=== PATIENT | female | born 1985 | race Two or more races ===

== ENCOUNTER 2020-12-07 22:27 | Emergency (ER) | payer MEDICARE, MEDICAID ==
[~2020-12-07] VITALS: Ht 170.2 cm; Wt 72.6 kg
[~2020-12-07 22:27] MED LIST: CABE0.5T PO; CARI250T PO; IBUP600T27 PO; NITR-39 PO
[2020-12-07 23:55] LABS: Basophils # (auto) 0.1 10 ^3/uL (0-0.2); Basophils % (auto) 2.3 % (0.0-2.0); Eosinophils # (auto) 0.2 10 ^3/uL (0-0.8); Hematocrit 33.5 % (36.0-46.0); Lymphocytes # (auto) 2.7 10 ^3/uL (0.4-5.4); Lymphocytes % (auto) 49.2 % (10.0-50.0); Mean Corpuscular Hgb Conc. 32.8 g/dL (32.0-36.0); Mean Corpuscular Volume 91.5 fL (80.0-100.0); Monocytes # (auto) 0.4 10 ^3/uL (0-1.3); Monocytes % (auto) 7.7 % (0.0-12.0); Neutrophils # (auto) 2.1 10 ^3/uL (1.6-8.6); Neutrophils % (auto) 37.8 % (37.0-80.0); Nucleated Red Blood Cells % 0.1 %; Platelet Count (auto) 189 10^3/uL (140-450); Red Blood Cells 3.66 10^6/uL (4.0-5.20); Red Cell Distribution Width 14.3 % (11.8-14.3); White Blood Cell 5.5 10^3/uL (4.4-10.8)
[2020-12-08 00:11] LABS: Acetaminophen 7.8 ug/mL (10-30); Salicylate < 1.7 mg/dL (2.8-20.0)
[2020-12-08 00:13] LABS: Albumin 3.6 g/dL (3.4-5.0); Calcium 7.7 mg/dL (8.5-10.1); Potassium 4.1 mmol/L (3.5-5.1)
[2020-12-08 00:16] LABS: BUN/Creatinine Ratio 28.6; Bilirubin, Total 0.1 mg/dL (0.2-1.0); Total Protein 6.9 g/dL (6.4-8.2)
[2020-12-08 00:48] LABS: Alcohol, Urine < 3.0 mg/dL (0-10); Amphetamine Screen, Urine NEGATIVE (NEGATIVE); Barbiturate Scree,Urine NEGATIVE (NEGATIVE); Benzodiazephine Screen, Urine POSITIVE (NEGATIVE); Cannabinoid Screen, Urine NEGATIVE (NEGATIVE); Cocaine Screen, Urine NEGATIVE (NEGATIVE); Opiate Scree,Urine NEGATIVE (NEGATIVE); Phencyclidine Screen, Urine NEGATIVE (NEGATIVE)
[2020-12-08 00:51] LABS: Urine Bacteria FEW /hpf (None Seen); Urine Blood Negative /uL (Negative); Urine Hyaline Cast FEW /lpf (0 - 2); Urine Mucus FEW (None Seen); Urine Specific Gravity 1.031 (1.001-1.035); Urine WBC 23 /hpf (0 - 5)
[2020-12-08 01:00] VITALS: BP 122/71
== END 2020-12-08 01:53 | disposition home or self-care (01) ==
LOC: EDBD 22:27 → ER 22:30
DX: F19.10 Other psychoactive substance abuse, uncomplicated (principal); F11.10 Opioid abuse, uncomplicated; T65.91XA Toxic effect of unspecified substance, accidental (unintentional), initial encounter; Y92.89 Other specified places as the place of occurrence of the external cause
CPT/HCPCS: 36415; 80053; 80307; 80329; 81001; 85025; 93005

== ENCOUNTER 2024-08-04 03:01 | Inpatient (IN) | payer MEDICARE, MEDICAID ==
[~2024-08-04] VITALS: Ht 165.1 cm; Wt 69.7 kg
[~2024-08-04 03:01] MED LIST changes: +IBUP-1454 PO; -IBUP600T27 PO
[2024-08-04] MEDS: GABAPENTIN 400 MG CAP PO ONE (03:30)
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
[2024-08-04 04:16] LABS: Basophils # (auto) 0.1 10 ^3/uL (0-0.2); Basophils % (auto) 0.9 % (0.0-2.0); Eosinophils # (auto) 0.5 10 ^3/uL (0-0.8); Eosinophils % (auto) 6.6 % (0.0-7.0); Hematocrit 39.7 % (36.0-46.0); Hemoglobin 12.2 g/dL (12.2-16.2); Lymphocytes # (auto) 1.8 10 ^3/uL (0.4-5.4); Lymphocytes % (auto) 22.3 % (10.0-50.0); Mean Corpuscular Hemoglobin 30.6 pg (28.0-32.0); Mean Corpuscular Hgb Conc. 30.7 g/dL (32.0-36.0); Mean Corpuscular Volume 99.6 fL (80.0-100.0); Monocytes # (auto) 0.3 10 ^3/uL (0-1.3); Monocytes % (auto) 3.2 % (0.0-12.0); Neutrophils # (auto) 5.3 10 ^3/uL (1.6-8.6); Nucleated Red Blood Cells % 0.1 %; Platelet Count (auto) 271 10^3/uL (140-450); Red Blood Cells 3.99 10^6/uL (4.0-5.20); Red Cell Distribution Width 18.9 % (11.8-14.3)
[2024-08-04 04:42] LABS: Anion Gap 11 (5-15); Potassium 4.3 mmol/L (3.5-5.1); Sodium 143 mmol/L (136-145)
[2024-08-04 04:43] LABS: Calcium 10.2 mg/dL (8.7-10.4)
[2024-08-04 04:48] LABS: BUN/Creatinine Ratio 21.5 (10.0-20.0); Blood Urea Nitrogen 14 mg/dL (9-23)
[2024-08-04 04:53] LABS: Carbon Dioxide 20 mmol/L (20-31); Chloride 112 mmol/L (98-107); Glucose 107 mg/dL (74-106)
--- NOTE | 2024-08-04 05:05 | DVH ---
INDICATION: lower back pain COMPARISON: None TECHNIQUE: Frontal and lateral views of the lumbar spine were obtained. FINDINGS: There is posterior fusion from L2-L4 with bilateral rods and bilateral screws at L2 and L4. There is L3 vertebral augmentation. There is posterior fusion at L5-S1 with right-sided marcus and transpedicula r screws The lumbar vertebral alignment is normal. The intervertebral disc spaces are well-maintained. No significant facet arthropathy is noted. No acute fracture, vertebral compression deformity or aggressive osseous lesions. The paravertebral soft tissues are grossly unremarkable. IMPRESSION: 1. No acute fracture. 2. Multilevel postsurgical changes. No abnormal alignment. L3 vertebral augmentation.
[2024-08-04] MEDS: SODIUM CHLORIDE 0.9% 1,000 ML IV ONE (05:38)
[2024-08-04] MEDS: ACETAMINOPHEN 325 MG TAB PO ONE (05:38)
[2024-08-04] MEDS: diazePAM 2 MG TAB PO ONE (05:38)
[2024-08-04] MEDS: KETOROLAC TROMETH 30 MG/ML 1ML VIAL IV ONE (05:40)
[2024-08-04 06:19] VITALS: RESP 12; O2SAT 97
[2024-08-04] MEDS ORDERED: DOCUSATE SOD 100 MG CAP PO PRN (09:00)
[2024-08-04] MEDS ORDERED: ACETAMINOPHEN 325 MG TAB PO PRN (09:00)
[2024-08-04 09:51] VITALS: BP 109/63; PULSE 86; RESP 20; TEMP 97.7; O2SAT 100
--- NOTE | 2024-08-04 09:52 | DVHHP2 ---
History of Present Illness Reason for Visit: Lumbar radiculopathy History of Present Illness The patient is a 39-year-old female with multiple past history including UTIs, anxiety, and pituitary tumor presented to [facility] ED with complaint of lower back pain. Patient reports symptoms progressively get worse with radiating buttock pain, bilateral leg pain, rating pain 10/10 numeric scale, sharp in nature, getting worse that prompted this visit. Patient was seen and evaluated in the ED, laboratory data shows WBC 8.0, platelets 271, sodium 143, potassium 4.3, BUN 14, creatinine 0.65, GFR 114, glucose 107, calcium 10.2. Lumbar spine x-ray revealing multilevel postsurgical changes, no acute fracture, no abdominal alignment, L3 vertebral augmentation. Please see medication orders section in the computer. On my assessment, patient denied chest pain, no headache, no dizziness, no diaphoresis, no numbness, no tingling, no shortness of breath, no nausea, no vomiting, no fever, no chills. No other modifying factor or other associated signs and symptoms noted. The patient was admitted to the hospital for further evaluation and medical management. 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 Past Social History The patient lives at home, denies smoking, alcohol or illicit drugs abuse. Review of Systems Constitutional: No: Fever, Chills, Sweats, Weakness, Malaise, Other Eyes: No: Pain, Vision change, Conjunctivae inflammation, Eyelid inflammation, Other, Redness ENT: No: Ear pain, Ear discharge, Nose pain, Nose discharge, Nose congestion, Mouth pain, Mouth swelling, Throat pain, Throat swelling, Other Respiratory: No: Cough, Dry, Shortness of breath, SOB with excertion, Wheezing, Hemoptysis, Pleuritic Pain, Sputum, Wheezing, Other Cardiovascular: No: Chest Pain, Palpitations, Orthopnea, Paroxysmal Noc. Dyspnea, Edema, Lt Headedness, Other Gastrointestinal: No: Nausea, Vomiting, Abdominal Pain, Diarrhea, Constipation, Melena, Hematochezia, Other Genitourinary: No Dysuria, No Frequency, No Incontinence, No Hematuria, No Retention, No Other Musculoskeletal: other (Buttocks and bilateral lower leg pain.), back pain (Lower); No: neck pain, shoulder pain, arm pain, hand pain, leg pain, foot pain Skin: No: Rash, Lesions, Jaundice, Bruising, Other Neurological: No: Weakness, Numbness, Incoordination, Change in speech, Confusion, Seizures, Other Allergies: Coded Allergies: Gabapentin (Verified Allergy, Unknown, 11/03/14) Lorazepam (Verified Allergy, Unknown, STS IT MAKES HER CRAZY, 08/20/14) Morphine (Verified Allergy, Unknown, HIVES, 08/20/14) Topiramate (Verified Allergy, Unknown, BECOMES ALTERED AND SWOLLEN, 08/20/14) Medications Current Medications Medications Dose Ordered Sig/Koby Route Start Time Stop Time Status Last Admin Dose Admin Sodium Chloride 10 ml Q8HR IV 08/04/24 14:00 Acetaminophen/ Hydrocodone Bitart 1 tab Q4HP PRN PO 08/04/24 09:00 Ondansetron HCl 4 mg Q4HP PRN IV 08/04/24 09:00 Docusate Sodium 100 mg BIDPRN PRN PO 08/04/24 09:00 Acetaminophen 650 mg Q6HP PRN PO 08/04/24 09:00 Exam Vital Signs Vital Signs Date Time Temp Pulse Resp B/P (MAP) Pulse Ox O2 Delivery O2 Flow Rate FiO2 08/04/24 08:00 97.6 67 16 104/66 (79) 100 97.6 08/04/24 06:19 Room Air* 0 21 General Appearance: Alert, Oriented X3, Cooperative, No acute distress HEENT: Atraumatic, PERRLA, EOMI, Mucous membr. moist/pink Respiratory: Clear to auscultation, Normal air movement Cardiovascular: Regular rate, Normal S1, Normal S2, No murmurs Abdominal: Normal bowel sounds, Soft, No tenderness, No hepatospenomegaly, No masses Extremities: No clubbing, No cyanosis, No edema, Normal pulses, No tenderness/swelling Skin: No rashes, No breakdown, No significant lesion Neuro: Normal speech, Normal tone, Sensation intact, Cranial nerves 3-12 NL, Reflexes 2+, Other (Bilateral leg weakness) Psych/Mental Status: Mental status NL, Mood NL Labs/Xrays Labs Test 08/04/24 04:00 Range/Units White Blood Count 8.0 4.4-10.8 10^3/uL Red Blood Count 3.99 L 4.0-5.20 10^6/uL Hemoglobin 12.2 12.2-16.2 g/dL Hematocrit 39.7 36.0-46.0 % Mean Corpuscular Volume 99.6 80.0-100.0 fL Mean Corpuscular Hemoglobin 30.6 28.0-32.0 pg Mean Corpuscular Hemoglobin Concent 30.7 L 32.0-36.0 g/dL Red Cell Distribution Width 18.9 H 11.8-14.3 % Platelet Count 271 140-450 10^3/uL Mean Platelet Volume 7.4 6.9-10.8 fL Neutrophils (%) (Auto) 67.0 37.0-80.0 % Lymphocytes (%) (Auto) 22.3 10.0-50.0 % Monocytes (%) (Auto) 3.2 0.0-12.0 % Eosinophils (%) (Auto) 6.6 0.0-7.0 % Basophils (%) (Auto) 0.9 0.0-2.0 % Neutrophils # (Auto) 5.3 1.6-8.6 10 ^3/uL Lymphocytes # (Auto) 1.8 0.4-5.4 10 ^3/uL Monocytes # (Auto) 0.3 0-1.3 10 ^3/uL Eosinophils # (Auto) 0.5 0-0.8 10 ^3/uL Basophils # (Auto) 0.1 0-0.2 10 ^3/uL Nucleated Red Blood Cells 0.1 % Sodium Level 143 136-145 mmol/L Potassium Level 4.3 3.5-5.1 mmol/L Chloride Level 112 H 98-107 mmol/L Carbon Dioxide Level 20 20-31 mmol/L Anion Gap 11 5-15 Blood Urea Nitrogen 14 9-23 mg/dL Creatinine 0.65 0.550-1.02 mg/dL Glomerular Filtration Rate Calc 114 >90 mL/min BUN/Creatinine Ratio 21.5 H 10.0-20.0 Serum Glucose 107 H 74-106 mg/dL Calcium Level 10.2 8.7-10.4 mg/dL PATIENT: LAURA PIZARRO ACCT: [id number] UNIT: [id number] : 1985 LOC: ER ROOM / BED: / AGE / SEX: 39 / F ADM STATUS: REG ER SERVICE [id number] ORDERING PHYSICIAN: GIRMA ANGUIANO MD PROCEDURE(s): LUMB2 - LUMBAR SPINE 3 VIEW REASON: lower back pain ORDER NUMBER(s): [id number], ACCESSION NUMBER(s): [id number] INDICATION: lower back pain COMPARISON: None TECHNIQUE: Frontal and lateral views of the lumbar spine were obtained. FINDINGS: There is posterior fusion from L2-L4 with bilateral rods and bilateral screws at L2 and L4. There is L3 vertebral augmentation. There is posterior fusion at L5- S1 with right-sided marcus and transpedicular screws The lumbar vertebral alignment is normal. The intervertebral disc spaces are well-maintained. No significant facet arthropathy is noted. No acute fracture, vertebral compression deformity or aggressive osseous lesions. The paravertebral soft tissues are grossly unremarkable. IMPRESSION: 1. No acute fracture. 2. Multilevel postsurgical changes. No abnormal alignment. L3 vertebral augmentation. Assessment/Plan Assessment/Plan Lumbar radiculopathy Bilateral leg weakness Plan 1. Admit to med surge unit 2. Breathing treatment 3. Pain control management 4. Management of fluids and electrolytes 5. Consultation for hospitalist 6. Diagnostic tests lumbar spine x-ray 7. DVT prophylaxis-on SCDs 8. Repeat labs CBC, CMP in a.m. 9. Continue with current medical management 10. Treatment plan discussed with patient and RN. Patient verbalized understanding. Plan discussed with: Patient, Other (RN) My Orders Orders - RUBEN CROSS DNP Procedure Category Date Status Time Allergies RICKY 08/04/24 In Process 08:47 Code Status CODE 08/04/24 Transmitted 08:47 Sodium Chloride Lock PHA 08/04/24 In Process (Saline Lock Ns) 14:00 Oxygen Per Hour RT 08/04/24 Transmitted 08:47 Hydrocodone-Acet PHA 08/04/24 In Process 5/325mg Tab ([place] 09:00 Ondansetron Hcl PHA 08/04/24 In Process (Zofran) 09:00 Docusate Sodium PHA 08/04/24 In Process Capsule (Colace 09:00 Complete Blood Count LAB 08/05/24 Verified 04:00 Comprehensive LAB 08/05/24 Verified Metabolic Panel 04:00 Cardiac DIET 08/04/24 Transmitted Diet-2gna,Lofat,Lochol Breakfast Condition: Serious RICKY 08/04/24 In Process 08:47 Acetaminophen Tablet [facility] 08/04/24 In Process (Tylenol Tablet) 09:00 Bedrest With Bathroom RICKY 08/04/24 In Process Privileg 08:47 Sequential [facility] 08/04/24 In Process Compression Device Admit ADMIT 08/04/24 Transmitted 09:51 Nitroglycerin [facility] 08/04/24 Transmitted Sublingual (Ntrostat 10:00 Morphine Sulfate [facility] 08/04/24 Transmitted Injection 10:00 Notify Md Of Changes [facility] 08/04/24 Transmitted From Base 09:51 Emergency Dysrhythmia [facility] 08/04/24 Transmitted Protocol 09:51 Oxygen By Nasal RT 08/04/24 Transmitted Cannula 09:51 Problem List: (1) Lumbar radiculopathy (2) Bilateral leg weakness Date of Service: Aug 04, 2024 Billing Provider: RUBEN CROSS DNP Common Visit Codes: [id number] INP/OBS CARE (HIGH) RUBEN CROSS DNP Aug 04, 2024 09:52
[2024-08-04] MEDS ORDERED: NITROGLYCERIN 0.4 MG SL TAB SL PRN (10:00)
[2024-08-04] MEDS ORDERED: MORPHINE SULFATE INJ 2 MG/ml SYRG IV PRN (10:00)
[2024-08-04 10:15] VITALS: PULSE 78; RESP 18; O2SAT 100
[2024-08-04] MEDS ORDERED: PANT1INJ3 PO (10:44)
[2024-08-04] MEDS ORDERED: CEL100T PO (10:46)
[2024-08-04] MEDS ORDERED: GABA-339 PO (10:48)
[2024-08-04] MEDS: HYDROcodone-ACET 5/325MG TAB PO PRN (11:13)
[2024-08-04 11:27] VITALS: BP 109/63; PULSE 73; PULSE 86; RESP 18; RESP 20; TEMP 97.7; O2SAT 100; O2SAT 97
[2024-08-04] MEDS: SODIUM CHLOR 0.9% PF (SALINE LOCK) 10ML VIAL/SYR IV SCH (13:33)
[2024-08-04] MEDS: HYDROmorphone HCL 2 MG/ML VL/or syr IV PRN (14:52)
[2024-08-04] MEDS: diphenhdrAMINE HCL 50 MG/1 ML VL IV PRN (16:17)
[2024-08-04 16:30] VITALS: BP 104/60; PULSE 70; RESP 18; TEMP 97.5; O2SAT 98
[2024-08-04] MEDS: ONDANSETRON HCL 4 MG/2 ML VIAL IV PRN (23:54)
[2024-08-05] VITALS (8 sets, daily range): BP systolic 101–144; BP diastolic 59–79; PULSE 63–88; RESP 18–20; TEMP 97.4–98.4; O2SAT 94–100
[2024-08-05] MEDS ORDERED: ACET-1079 PO (01:58)
[2024-08-05] MEDS ORDERED: BACL20TA PO (01:58)
[2024-08-05] MEDS ORDERED: TIZA4TAB9 PO (01:58)
[2024-08-05] MEDS ORDERED: GABA-1250 PO (01:58)
[2024-08-05] MEDS ORDERED: CEPH500T PO (01:58)
[2024-08-05] MEDS ORDERED: DIPH25TA31 PO (01:58)
[2024-08-05] MEDS ORDERED: PANT40TA2 PO (01:58)
[2024-08-05 06:37] LABS: Basophils # (auto) 0 10 ^3/uL (0-0.2); Basophils % (auto) 0.8 % (0.0-2.0); Eosinophils # (auto) 0.7 10 ^3/uL (0-0.8); Eosinophils % (auto) 11.8 % (0.0-7.0); Hematocrit 31.1 % (36.0-46.0); Hemoglobin 10.1 g/dL (12.2-16.2); Lymphocytes # (auto) 1.9 10 ^3/uL (0.4-5.4); Lymphocytes % (auto) 32.6 % (10.0-50.0); Mean Corpuscular Hemoglobin 30.9 pg (28.0-32.0); Mean Corpuscular Hgb Conc. 32.5 g/dL (32.0-36.0); Mean Corpuscular Volume 95.1 fL (80.0-100.0); Monocytes # (auto) 0.2 10 ^3/uL (0-1.3); Neutrophils # (auto) 2.9 10 ^3/uL (1.6-8.6); Neutrophils % (auto) 50.8 % (37.0-80.0); Nucleated Red Blood Cells % 0.1 %; Platelet Count (auto) 303 10^3/uL (140-450); Red Blood Cells 3.27 10^6/uL (4.0-5.20); Red Cell Distribution Width 17.9 % (11.8-14.3); White Blood Cell 5.8 10^3/uL (4.4-10.8)
[2024-08-05 06:53] LABS: Alanine Aminotransferase 15 U/L (7-40); Albumin 4.2 g/dL (3.2-4.8); Alkaline Phosphatase 91 U/L (46-116); Anion Gap 8 (5-15); Aspartate Aminotransferase 17 U/L (13-40); BUN/Creatinine Ratio 19.7 (10.0-20.0); Blood Urea Nitrogen 12 mg/dL (9-23); Calcium 9.5 mg/dL (8.7-10.4); Carbon Dioxide 23 mmol/L (20-31); Potassium 4.1 mmol/L (3.5-5.1); Sodium 144 mmol/L (136-145)
[2024-08-05 06:54] LABS: Total Protein 6.3 g/dL (5.7-8.2)
[2024-08-05 06:56] LABS: Bilirubin, Total < 0.2 mg/dL (0.2-1.0); Chloride 113 mmol/L (98-107); Glucose 167 mg/dL (74-106)
--- NOTE | 2024-08-05 10:40 | DVHPN2 ---
Reviewed: Care Plan, H&P, Labs, Medications, Previous Orders, Radiology Changes from previous H/P or p: No Changes Eyes: No Pain, No Vision change, No Conjunctivae inflammation, No Eyelid inflammation, No Other, No Redness ENT: No Ear pain, No Ear discharge, No Nose pain, No Nose discharge, No Nose congestion, No Mouth pain, No Mouth swelling, No Throat pain, No Throat swelling, No Other Cardiovascular: No Chest Pain, No Palpitations, No Orthopnea, No Paroxysmal Noc. Dyspnea, No Edema, No Lt Headedness, No Other Respiratory: No Cough, No Dry, No Shortness of breath, No SOB with excertion, No Wheezing, No Hemoptysis, No Pleuritic Pain, No Sputum, No Other Gastrointestinal: No Nausea, No Vomiting, No Abdominal Pain, No Diarrhea, No Constipation, No Melena, No Hematochezia, No Other Genitourinary: No Dysuria, No Frequency, No Incontinence, No Hematuria, No Retention, No Other Musculoskeletal: other (Buttocks and bilateral lower leg pain.); No neck pain, No shoulder pain, No arm pain; back pain (Lower); No hand pain, No leg pain, No foot pain Skin: No Rash, No Lesions, No Jaundice, No Bruising, No Other Objective Vitals Vital Signs Date Time Temp Pulse Resp B/P (MAP) Pulse Ox O2 Delivery O2 Flow Rate FiO2 08/05/24 09:16 70 18 101/70 08/05/24 08:00 Room Air* 0 21 08/05/24 05:00 97.4 100 97.4 Intake/Output Intake and Output 08/05/24 07:00 Intake Total 325 ml Balance 325 ml Intake Oral 325 ml # Voids 1 Medications Current Medications Medications Dose Ordered Sig/Koby Route Start Time Stop Time Status Last Admin Dose Admin Sodium Chloride 10 ml Q8HR IV 08/04/24 14:00 08/05/24 09:27 10 ML Acetaminophen/ Hydrocodone Bitart 1 tab Q4HP PRN PO 08/04/24 09:00 08/05/24 02:50 1 TAB Ondansetron HCl 4 mg Q4HP PRN IV 08/04/24 09:00 08/05/24 09:15 4 MG Docusate Sodium 100 mg BIDPRN PRN PO 08/04/24 09:00 Acetaminophen 650 mg Q6HP PRN PO 08/04/24 09:00 Nitroglycerin 0.4 mg Q5MINP PRN SL 08/04/24 10:00 Diphenhydramine HCl 25 mg Q4HP PRN IM 08/05/24 10:45 UNV Hydromorphone HCl 2 mg Q6HR PRN IV 08/05/24 10:45 UNV Laboratory Results Laboratory Tests 08/05/24 05:37 Chemistry Test 08/05/24 05:37 Albumin 4.2 g/dL (3.2-4.8) Calcium Level 9.5 mg/dL (8.7-10.4) Total Protein 6.3 g/dL (5.7-8.2) LFT Test 08/05/24 05:37 Alanine Aminotransferase (ALT) 15 U/L (7-40) Alkaline Phosphatase 91 U/L (46-116) Aspartate Amino Transferase (AST) 17 U/L (13-40) Total Bilirubin < 0.2 mg/dL (0.2-1.0) L Labs and/or images reviewed: Labs reviewed by me, Image(s) reviewed by me Assessment/Plan Assessment/Plan Acute exacerbation of severe low back pain with a lumbar radiculopathy: Dilaudid 2 mg IV q.6 hours, Benadryl 25 mg intramuscular q.[address] LS spine ordered History of lumbar spine surgery History of bowel perforation History of spinal fusion History of HOTEL MAID shunt Depression: Tele psych consult Anxiety: Xanax History of pseudotumor cerebri Chronic current narcotic abuser 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 Charge Nurse Emilee Little at bedside Time Spent 50 minutes Advanced care planning time 20 minutes Patient is full code Plan discussed with: Patient My Orders Orders - SUMAN FROST MD Procedure Category Date Status Time Diphenhdramine PHA 08/05/24 Logged Injection (Benadryl 10:45 Hydromorphone PHA 08/05/24 Logged Injection (Dilaudid 10:45 Ls Spine Wo Contrast CT 08/05/24 Logged 10:33 Beta Hcg, Quantitative LAB 08/05/24 Transmitted 10:34 *Tele Psych Consult CONS 08/05/24 Verified 10:35 Alprazolam Tablet PHA 08/05/24 Verified (Xanax Tablet) 10:45 Date of Service: Aug 05, 2024 Billing Provider: SUMAN FROST MD Common Visit Codes: [id number] INP/OBS CARE(HIGH) Secondary Visit Codes: [id number] CARE PLAN 30 MINUTES SUMAN FROST MD Aug 05, 2024 10:40
[2024-08-05] MEDS: diphenhdrAMINE HCL 50 MG/1 ML VL IM PRN (11:17)
--- NOTE | 2024-08-05 12:56 | DVH ---
EXAM: CT LS SPINE WO CONTRAST HISTORY: Severe lumbar radiculopathy, history of L-spine sug COMPARISON: None CTDIvol 12.73 mGy, DLP 460.9 mGy*cm. TECHNIQUE: Multiple axial CT images of the spine were obtained using bone algorithm. Axial and coron al reformatting was done. Bone and soft tissue windows were reviewed. FINDINGS: No CT evidence of definite acute fracture, spinal dislocation, or significant appearing acute subluxa tion is seen. Post kyphoplasty changes at L3. Multilevel posterior spinal fixation hardware extending from L2-S1. Anterior lumbar spinal fixation hardware and disc spacer material at L5-S1. The visualized paraspinal soft tissues are grossly unremarkable. Suggestion of mild to moderate canal stenosis at L3-L4. IMPRESSION: No definite CT evidence of acute fracture or dislocation of the bony lumbar spine.
[2024-08-05] MEDS: ALPRAZolam 0.5 MG TAB PO PRN (13:49)
[2024-08-05] MEDS: HYDROmorphone HCL 2 MG/ML VL/or syr IV PRN (15:28)
[2024-08-06] VITALS (7 sets, daily range): BP systolic 91–116; BP diastolic 60–69; PULSE 76–86; RESP 16–20; TEMP 97.5–98.4; O2SAT 97–100
[2024-08-06 00:24] LABS: Urine Bacteria None Seen /hpf (None Seen)
[2024-08-06 00:40] LABS: Urine Blood Negative /uL (Negative); Urine Clarity Clear (Clear); Urine Color Yellow (Yellow); Urine Mucus FEW (None Seen); Urine Protein, UAD Negative (Negative); Urine Specific Gravity 1.033 (1.001-1.035); Urine Squamous Epithelial Cell FEW /hpf (<5); Urine Urobilinogen Normal (Negative); Urine WBC 1 /HPF (0-5); Urine pH 5.5 (5.0-9.0)
--- NOTE | 2024-08-06 09:52 | DVHPN2 ---
Reviewed: Care Plan, H&P, Labs, Medications, Previous Orders, Radiology Changes from previous H/P or p: No Changes Eyes: No Pain, No Vision change, No Conjunctivae inflammation, No Eyelid inflammation, No Other, No Redness ENT: No Ear pain, No Ear discharge, No Nose pain, No Nose discharge, No Nose congestion, No Mouth pain, No Mouth swelling, No Throat pain, No Throat swelling, No Other Cardiovascular: No Chest Pain, No Palpitations, No Orthopnea, No Paroxysmal Noc. Dyspnea, No Edema, No Lt Headedness, No Other Respiratory: No Cough, No Dry, No Shortness of breath, No SOB with excertion, No Wheezing, No Hemoptysis, No Pleuritic Pain, No Sputum, No Other Gastrointestinal: No Nausea, No Vomiting, No Abdominal Pain, No Diarrhea, No Constipation, No Melena, No Hematochezia, No Other Genitourinary: No Dysuria, No Frequency, No Incontinence, No Hematuria, No Retention, No Other Musculoskeletal: other (Buttocks and bilateral lower leg pain.); No neck pain, No shoulder pain, No arm pain; back pain (Lower); No hand pain, No leg pain, No foot pain Skin: No Rash, No Lesions, No Jaundice, No Bruising, No Other Objective Vitals Vital Signs Date Time Temp Pulse Resp B/P (MAP) Pulse Ox O2 Delivery O2 Flow Rate FiO2 08/06/24 08:53 98.0 81 20 107/64 (78) 97 98.0 08/05/24 20:00 Room Air* 0 21 Intake/Output Intake and Output 08/06/24 07:00 Intake Total 1595 ml Balance 1595 ml Intake Oral 1595 ml # Voids 6 Medications Current Medications Medications Dose Ordered Sig/Koby Route Start Time Stop Time Status Last Admin Dose Admin Sodium Chloride 10 ml Q8HR IV 08/04/24 14:00 08/06/24 06:20 10 ML Acetaminophen/ Hydrocodone Bitart 1 tab Q4HP PRN PO 08/04/24 09:00 08/06/24 00:36 1 TAB Ondansetron HCl 4 mg Q4HP PRN IV 08/04/24 09:00 08/06/24 03:22 4 MG Docusate Sodium 100 mg BIDPRN PRN PO 08/04/24 09:00 Acetaminophen 650 mg Q6HP PRN PO 08/04/24 09:00 Nitroglycerin 0.4 mg Q5MINP PRN SL 08/04/24 10:00 Diphenhydramine HCl 25 mg Q4HP PRN IM 08/05/24 10:45 08/06/24 03:48 25 MG Hydromorphone HCl 2 mg Q6HR PRN IV 08/05/24 10:45 08/06/24 03:49 2 MG Alprazolam 1 mg Q8HPRN PRN PO 08/05/24 10:45 08/06/24 06:31 1 MG Laboratory Results Laboratory Tests 08/05/24 05:37 Urinalysis Test 08/06/24 00:22 Urine Color Yellow (Yellow) Urine Clarity Clear (Clear) Urine pH 5.5 (5.0-9.0) Urine Specific [place] 1.033 (1.001-1.035) Urine Protein Negative (Negative) Urine Ketones Trace (Negative) Urine Blood Negative /uL (Negative) Urine Nitrite Negative (Negative) Urine Bilirubin Negative (Negative) Urine Urobilinogen Normal mg/dL (Negative) Urine Leukocyte Esterase Negative /uL (Negative) Urine RBC 1 /hpf (0 - 4) Urine Microscopic WBC 1 /HPF (0-5) Urine Squamous Epithelial Cells Few /hpf (<5) Urine Calcium Oxalate Crystals Few (None Seen) Urine Bacteria None seen /hpf (None Seen) Urine Mucus Few (None Seen) Urine Glucose Normal mg/dL (Normal) Labs and/or images reviewed: Labs reviewed by me, Image(s) reviewed by me Assessment/Plan Assessment/Plan Acute exacerbation of severe low back pain with lumbar radiculopathy: LS spine negative for any fracture, CT LS spine is also negative for any fracture, continue Dilaudid 2 mg IV q.6 hours, Benadryl 25 mg intramuscular q.6 hours per patient's request History of lumbar spine surgery History of bowel perforation History of spinal fusion 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 Charge Nurse Emilee Little at bedside Time Spent 50 minutes Advanced care planning time 20 minutes Patient is full code Plan discussed with: Patient My Orders Orders - SUMAN FROST MD Procedure Category Date Status Time Diphenhdramine PHA 08/05/24 In Process Injection (Benadryl 10:45 Hydromorphone PHA 08/05/24 In Process Injection (Dilaudid 10:45 Ls Spine Wo Contrast CT 08/05/24 Resulted 10:33 *Tele Psych Consult CONS 08/05/24 Transmitted 10:35 Alprazolam Tablet PHA 08/05/24 In Process (Xanax Tablet) 10:45 Gabapentin Capsule PHA 08/06/24 Transmitted (Neurontin Capsule) 14:00 Date of Service: Aug 06, 2024 Billing Provider: SUMAN FROST MD Common Visit Codes: [id number] INP/OBS CARE(HIGH) SUMAN FROST MD Aug 06, 2024 09:52
[2024-08-06] MEDS ORDERED: OXYC-998 PO (10:19)
[2024-08-06] MEDS ORDERED: DULO60CA41 PO (10:19)
[2024-08-06] MEDS ORDERED: ALPR1TAB2 PO (10:19)
[2024-08-06] MEDS ORDERED: GABA-1250 PO (10:19)
[2024-08-06] MEDS ORDERED: CIPR-173 PO (10:19)
--- NOTE | 2024-08-06 10:32 | DVHDS2 ---
Discharge Summary Date of Admission Aug 04, 2024 at 09:51 Date of Discharge: Aug 06, 2024 Admitting Diagnosis Exacerbation of chronic low back pain Wounds: None Labs/Diagnostic Data: Laboratory Results Test 08/06/24 00:22 08/05/24 05:37 08/04/24 18:48 Urine Color Yellow (Yellow) Urine Clarity Clear (Clear) Urine pH 5.5 (5.0-9.0) Urine Specific [place] 1.033 (1.001-1.035) Urine Protein Negative (Negative) Urine Ketones Trace (Negative) Urine Blood Negative /uL (Negative) Urine Nitrite Negative (Negative) Urine Bilirubin Negative (Negative) Urine Urobilinogen Normal mg/dL (Negative) Urine Leukocyte Esterase Negative /uL (Negative) Urine RBC 1 /hpf (0 - 4) Urine Microscopic WBC 1 /HPF (0-5) Urine Squamous Epithelial Cells Few /hpf (<5) Urine Calcium Oxalate Crystals Few (None Seen) Urine Bacteria None seen /hpf (None Seen) Urine Mucus Few (None Seen) Urine Glucose Normal mg/dL (Normal) White Blood Count 5.8 10^3/uL (4.4-10.8) Red Blood Count 3.27 10^6/uL (4.0-5.20) Hemoglobin 10.1 g/dL (12.2-16.2) Hematocrit 31.1 % (36.0-46.0) Mean Corpuscular Volume 95.1 fL (80.0-100.0) Mean Corpuscular Hemoglobin 30.9 pg (28.0-32.0) Mean Corpuscular Hemoglobin Concent 32.5 g/dL (32.0-36.0) Red Cell Distribution Width 17.9 % (11.8-14.3) Platelet Count 303 10^3/uL (140-450) Mean Platelet Volume 7.7 fL (6.9-10.8) Neutrophils (%) (Auto) 50.8 % (37.0-80.0) Lymphocytes (%) (Auto) 32.6 % (10.0-50.0) Monocytes (%) (Auto) 4.0 % (0.0-12.0) Eosinophils (%) (Auto) 11.8 % (0.0-7.0) Basophils (%) (Auto) 0.8 % (0.0-2.0) Neutrophils # (Auto) 2.9 10 ^3/uL (1.6-8.6) Lymphocytes # (Auto) 1.9 10 ^3/uL (0.4-5.4) Monocytes # (Auto) 0.2 10 ^3/uL (0-1.3) Eosinophils # (Auto) 0.7 10 ^3/uL (0-0.8) Basophils # (Auto) 0 10 ^3/uL (0-0.2) Nucleated Red Blood Cells 0.1 % Sodium Level 144 mmol/L (136-145) Potassium Level 4.1 mmol/L (3.5-5.1) Chloride Level 113 mmol/L (98-107) Carbon Dioxide Level 23 mmol/L (20-31) Anion Gap 8 (5-15) Blood Urea Nitrogen 12 mg/dL (9-23) Creatinine 0.61 mg/dL (0.550-1.02) Glomerular Filtration Rate Calc 116 mL/min (>90) BUN/Creatinine Ratio 19.7 (10.0-20.0) Serum Glucose 167 mg/dL (74-106) Calcium Level 9.5 mg/dL (8.7-10.4) Total Bilirubin < 0.2 mg/dL (0.2-1.0) Aspartate Amino Transferase (AST) 17 U/L (13-40) Alanine Aminotransferase (ALT) 15 U/L (7-40) Alkaline Phosphatase 91 U/L (46-116) Total Protein 6.3 g/dL (5.7-8.2) Albumin 4.2 g/dL (3.2-4.8) Beta HCG, Quantitative 0.5 mIU/mL (1.5-4.2) POC Glucose 132 mg/dl (70-106) Other Laboratory Tests 08/05/24 05:37 Brief Hx & Hospital Course: 39-year-old female with a history of chronic low back pain status post lumbar spine surgery spinal fusion history of pseudotumor cerebri 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 LS spine x-ray was negative CT LS spine was negative patient was treated with Dilaudid and Benadryl for her request. The patient was also placed on medications for anxiety tele psych consult was done for her ongoing depression but the patient refused and wants to be discharged home. Explained to the patient about negative findings with the CT of the LS spine she is ambulating well. Not in distress stable vital signs discharged home on medications gabapentin Cymbalta oxycodone Xanax and Cipro. 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 Depression: Tele psych consult Anxiety: Xanax History of pseudotumor cerebri Chronic current narcotic abuser Discharge Disposition: Home Discharge Instruct/Medications Diet: Regular Activity: Light activity Follow Up/Referral: Follow up with your spine surgeon and psychiatrist at [facility] Medications: Xanax Cipro Cymbalta Gabapentin Oxycodone Transmitted to [address] (Time Taken for discharge summary 36 minutes) Discharge Statement: "Patient was advised to return to the ER or call 911 if any headaches, dizziness, shortness of breath, chest pain, abdominal pain, bleeding, fevers, or worsening of medical condition. Patient was counseled about treatment plan, medications, possible side effects, patientverbalized understanding. All questions were answered to the best of my ability. 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
[2024-08-06] MEDS: ALPRAZolam 0.5 MG TAB PO ONE (11:15)
[2024-08-06] MEDS: diphenhdrAMINE HCL 50 MG/1 ML VL IM ONE (11:15)
[2024-08-06] MEDS: GABAPENTIN 100 MG CAP PO ONE (11:30)
[2024-08-06] MEDS: GABAPENTIN 300 MG CAP PO SCH (14:00)
== END 2024-08-06 17:40 | disposition home or self-care (01) | DRG 552 ==
LOC: ER 03:01 → EDBD 03:01 → OVERFLOW 09:51 → EAST 22:47
PROVIDERS: ADMIT Family Medicine; ATTEND Family Medicine
DX: M54.16 Radiculopathy, lumbar region (principal); N39.0 Urinary tract infection, site not specified; F32.A Depression, unspecified; F41.9 Anxiety disorder, unspecified; G89.29 Other chronic pain; F11.10 Opioid abuse, uncomplicated; Z88.5 Allergy status to narcotic agent; Z98.1 Arthrodesis status; Z98.2 Presence of cerebrospinal fluid drainage device; Z79.899 Other long term (current) drug therapy
CPT/HCPCS: 36415; 72100; 72131; 80048; 80053; 81001; 82962; 84702; 85025; 87081; 96361; 96374; G0378; J1885; J2405

== ENCOUNTER 2025-03-26 19:04 | Inpatient (IN) | payer MEDICARE, MEDICAID ==
[~2025-03-26] VITALS: Ht 170.2 cm; Wt 75.0 kg
[~2025-03-26 19:04] MED LIST changes: +ACET-1079 PO; +ALPR1TAB2 PO; +BACL20TA PO; +CEL100T PO; +CEPH500T PO; +CIPR-173 PO; +DIPH25TA31 PO; +DULO60CA41 PO; +GABA-1250 PO; +GABA-339 PO; +OXYC-998 PO; +PANT1INJ3 PO; +PANT40TA2 PO; +TIZA4TAB9 PO
--- NOTE | 2025-03-26 19:21 | ED.PDOC ---
History of Present Illness HPI Comments HPI: 40-year-old female who came to ER for acute on chronic exacerbation of low back pain. Patient ran out of her Percocet yesterday. Patient is brought in by ambulance. Patient was discharged here last August 06, 2024 diagnosed with 1. Acute exacerbation of chronic low back pain with lumbar radiculopathy: LS spine negative for any fracture, CT LS spine is also negative for any fracture, 2. History of lumbar spine surgery 3. History of bowel perforation, 4. History of spinal fusion, 5. History of POLICY WRITER shunt , 6. Depression, 7. Anxiety, 8. History of pseudotumor cerebri, 9. Chronic current narcotic abuser. . Patient states she had a fall injury 3 days ago, currently complaining of lower back pain, radiating to your upper back and her lower legs. Initial Vitals BP: 113/72 HR: 108 RR: 18 O2: 99% Temp: 98.4 Past Medical History: Chronic pain syndrome, lumbar radiculopathy, degenerative joint disease Past Surgical History: Back surgery thus December 2024, removal of hardware, resection of intestine 2 bowel obstruction, colostomy bag, multiple back surgeries Social History: Denies ETOH, smoking, and drug use. Medications: Allergies: Compazine and Reglan HPI: Poor Historian. REVIEW OF SYSTEMS: CONSTITUTIONAL: Denies acute: fever, diaphoresis, chills, generalized weakness. HEAD: Denies acute: headache, photophobia Eyes: Denies acute: Double vision, vision loss, eye pain, eye discharge. EARS: Denies acute: tinnitus, hearing loss, ear discharge, ear pain, THROAT: Denies acute: sore throat, swelling, difficulty swallowing , pain with swallowing, change in voice. NECK: Denies acute: neck pain, neck swelling, stiff neck. HEART: Denies acute : chest pain, palpitations, LUNGS: Denies acute: SOB, wheezing, cough, hemoptysis ABDOMEN: Denies acute: abdominal pain, Nausea, Vomiting, diarrhea, melena , hematemesis, hematochezia SKIN: Denies acute: rash, redness, lesions, itchiness. EXTREMITIES: Denies acute: calf pain, numbness, tingling, weakness, denies pain in extremity. Neuro: Denies acute: focal neurological deficit, motor or sensory focal neurological deficit, tremors, seizure like activity, confusion, dizziness, change in mental status, loss of bowel or bladder function, cauda equina like symptoms. : Denies acute: dysuria, hematuria, flank pain, increase in urinary frequency. PSYCH: Denies acute: hallucination, suicidal ideation, homicidal ideation. FEMALE: Denies acute: abnormal vaginal bleeding, foul odor, unusual discharge. PHYSICAL EXAM: General: ----mild----acute distress, awake and alert. Head: normocephalic, atraumatic. Neck: supple, trachea is midline, no swelling. Throat: Normal phonation. Eyes:, no erythema, no purulent discharge, no proptosis, no icterus. Heart: regular rate, regular rhythm, no significant murmur appreciated. Lungs: no apparent respiratory distress, Able to speak in full sentences. No wheezing, no rhonchi, no crackles. No stridors Clear to auscultation bilaterally. Abdomen: non tender to palpation, non distended, soft, no guarding, no rebound, + bowel sounds. Neuro: Awake, Alert, oriented to name, self, situation, follows commands GCS=15. Speech is normal. Skin: no petechia, no purpura, no cyanosis, non-pale, not jaundice. Lower extremities: --no - Pitting edema no deformity, no focal swelling, no calf TTP. Makes eye contact. moves all four extremities. Face: no apparent facial droop. ED COURSE: DISCLAIMER: This medical document was created using an electronic medical record system with voice recognition software and computerized dictation system. Although this document has been carefully reviewed, there might still be some phonetic and typographical errors. Occasional wrong-word or "sound-alike" substitutions may have occurred due to the inherent limitations of voice recognition software. These areas are purely typographical due to imperfections of the software programs and do not reflect any compromise in the patient's medical care. Please read the chart carefully and recognize, using context, where these substitutions have occurred. 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 Notes, Allergies Allergies: Coded Allergies: Metoclopramide (Unverified Allergy, Unknown, 9/12/25) Prochlorperazine (Unverified Allergy, Unknown, 03/27/25) Topiramate (Verified Allergy, Unknown, BECOMES ALTERED AND SWOLLEN, 08/20/14) Home Meds Active Scripts Duloxetine Hcl (Cymbalta) 60 Mg Cap, 1 CAP PO DAILY, #30 CAP 3 Refills Prov:SUMAN FROST MD 08/06/24 Oxycodone HCl (Oxycodone Hydrochloride) 10 Mg Tab, 10 MG PO TID, #30 TAB Prov:SUMAN FROST MD 08/06/24 Alprazolam (Xanax) 1 Mg Tab, 1 TAB PO TID PRN, #30 TAB Prov:SUMAN FROST MD 08/06/24 Ciprofloxacin Hcl (Cipro) 500 Mg Tab, 1 TAB PO BID, #20 TAB Prov:SUMAN FROST MD 08/06/24 Gabapentin (Gabapentin) 300 Mg Cap, 2 CAP PO TID, #60 CAP 5 Refills Prov:SUMAN FROST MD 08/06/24 Nitrofurantoin (Macrodantin) 100 Mg Cap, 1 CAP PO BID, #10 CAP Prov:CHUNG RASCON MD 01/26/15 Reported Medications Tizanidine Hydrochloride (Zanaflex) 4 Mg Tab, 4 MG PO, TAB 08/05/24 Cephalexin Monohydrate (Cephalexin) 500 Mg Tab, 1 TAB PO TID, #30 TAB 08/05/24 Baclofen (Baclofen) 20 Mg Tab, 5 MG PO TID, TAB 08/05/24 Diphenhydramine Hcl (Banophen) 25 Mg Tab, 25 MG PO Q6HPRN, TAB 08/05/24 Acetaminophen (Tylenol) 325 Mg Tb, 650 MG PO Q6HR, TAB 08/05/24 Gabapentin (Gabapentin) 300 Mg Cap, 1 CAP PO Q8HR, #90 CAP 5 Refills 08/05/24 Celecoxib (CeleBREX CAPSULE) 100 Mg Cp, 200 MG PO BID, CAP 08/05/24 Pantoprazole Sodium Sesquihydr (Protonix) 40 Mg Tab, 40 MG PO DAILY, #30 TAB 08/05/24 Gabapentin (Gabapentin) 600 Mg Tab, 900 MG PO Q8HR for 30 Days, MG 08/04/24 Celecoxib (CeleBREX CAPSULE) 100 Mg Cp, 200 MG PO BID, CAP 08/04/24 Pantoprazole Sodium (PANTOPRAZOLE SODIUM) 40 Mg Inj, 40 MG PO DAILY, INJ 08/04/24 Cabergoline (Cabergoline) 0.5 Mg Tab, 0.5 MG PO, TAB 12/12/14 Ibuprofen (Ibuprofen) 600 Mg Tab, 1 TAB PO TID, #90 TAB 12/12/14 Carisoprodol (Soma) 250 Mg Tab, 250 MG PO, TAB 10/28/14 Information Source: Patient, Emergency Med Personnel Mode of Arrival: EMS Past Medical History PAST MEDICAL HISTORY: Anxiety, UTI'S 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 Was a procedure done?: No Differential Dx Considerations may include: DDX included but not limited to Cauda Equina syndrome, lumbar radiculopathy, arthritis, disk herniation, sciatica, muscle strain, epidural abscess, transverse myelitis. Cord compression, spinal foraminal stenosis, spinal fractur es, spondylosis, central canal stenosis, trauma, muscle sprain/strain, aneurysm/dissection, kidney stones, shingles, arthritis, [place], neoplasm., retroperitoneal hematoma X-Ray, Labs, Meds, VS Vital Signs Date Time Temp Pulse Resp B/P (MAP) Pulse Ox O2 Delivery O2 Flow Rate FiO2 03/27/25 00:24 107 14 99 Room Air* 0 21 03/27/25 00:23 98.5 107 14 112/73 (86) 99 98.5 03/26/25 19:12 98.4 108 18 113/72 99 98.4 Lab Test 03/26/25 22:46 03/26/25 19:41 03/26/25 19:32 Range/Units B-Type Natriuretic Peptide 20.25 0-100 pg/mL White Blood Count 4.9 4.4-10.8 10^3/uL Red Blood Count 3.74 L 4.0-5.20 10^6/uL Hemoglobin 11.4 L 12.2-16.2 g/dL Hematocrit 34.0 L 36.0-46.0 % Mean Corpuscular Volume 90.8 80.0-100.0 fL Mean Corpuscular Hemoglobin 30.5 28.0-32.0 pg Mean Corpuscular Hemoglobin Concent 33.5 32.0-36.0 g/dL Red Cell Distribution Width 15.4 H 11.8-14.3 % Platelet Count 348 140-450 10^3/uL Mean Platelet Volume 8.1 6.9-10.8 fL Neutrophils (%) (Auto) 46.6 37.0-80.0 % Lymphocytes (%) (Auto) 36.4 10.0-50.0 % Monocytes (%) (Auto) 6.0 0.0-12.0 % Eosinophils (%) (Auto) 9.8 H 0.0-7.0 % Basophils (%) (Auto) 1.2 0.0-2.0 % Neutrophils # (Auto) 2.3 1.6-8.6 10 ^3/uL Lymphocytes # (Auto) 1.8 0.4-5.4 10 ^3/uL Monocytes # (Auto) 0.3 0-1.3 10 ^3/uL Eosinophils # (Auto) 0.5 0-0.8 10 ^3/uL Basophils # (Auto) 0.1 0-0.2 10 ^3/uL Nucleated Red Blood Cells 0.1 % Sodium Level 142 136-145 mmol/L Potassium Level 4.4 3.5-5.1 mmol/L Chloride Level 112 H 98-107 mmol/L Carbon Dioxide Level 20 20-31 mmol/L Anion Gap 10 5-15 Blood Urea Nitrogen 11 9-23 mg/dL Creatinine 0.57 0.550-1.02 mg/dL Glomerular Filtration Rate Calc 117 >90 mL/min BUN/Creatinine Ratio 19.3 10.0-20.0 Serum Glucose 104 74-106 mg/dL Calcium Level 8.6 L 8.7-10.4 mg/dL Total Bilirubin < 0.2 L 0.2-1.0 mg/dL Aspartate Amino Transferase (AST) 32 13-40 U/L Alanine Aminotransferase (ALT) 23 7-40 U/L Alkaline Phosphatase 104 46-116 U/L C-Reactive Protein High Sensitivity 0.17 <1.0 mg/dL Total Protein 5.6 L 5.7-8.2 g/dL Albumin 3.5 3.2-4.8 g/dL Current Medications Medications (Trade) Dose Ordered Sig/Koby Route Start Time Stop Time Status Last Admin Acetaminophen/ Hydrocodone Bitart ([place] 5/325MG Tab) 1 tab ONCE ONCE PO 03/26/25 19:30 03/26/25 19:31 DC 03/27/25 00:51 [place] [id number] Ph: [phone] DIAGNOSTIC IMAGING Diagnostic Imaging Report : [id number] Signed PATIENT: LAURA PIZARRO ACCT: [id number] UNIT: [id number] : 1985 LOC: ER ROOM / BED: / AGE / SEX: 40 / F ADM STATUS: REG ER SERVICE 17 ORDERING PHYSICIAN: RAJ DE OLIVEIRA DO PROCEDURE(s): LS2CT - LS SPINE WO CONTRAST REASON: LOW BACK PAIN ORDER NUMBER(s): [id number], ACCESSION NUMBER(s): [id number] EXAM: CT LS SPINE WO CONTRAST INDICATION: LOW BACK PAIN TECHNIQUE: Axial images of the lumbar spine have been obtained along with coronal and sagittal reformatted images. CT scans at this facility use dose modulation, iterative reconstruction, and/or weight based dosing when appropriate to reduce radiation dose to as low as reasonably achievable. COMPARISON: CT LS SPINE WO CONTRAST on DOS: 08/05/24 FINDINGS: ANATOMY: Five lumbar-type vertebral bodies are present. The most inferior well- formed disc space will be referred to as L5-S1 for purposes of numbering in this report. Evidence of prior posterior decompression with the bilateral hemilaminectomy in the lower lumbar spine with a unipedicular right-sided fusion from L5-S1. Anterior fusion at L5-S1. Status post prior presumed kyphoplasty/vertebroplasty at L3. Prior screw placement with removal at L2. VERTEBRAL BODIES: Upon comparison with the prior examination, persistent un united obliquely oriented fracture plane of the posterior inferior vertebral body of L3. No evidence of osseous bridging. No CT evidence of an acute endplate compression fracture when compared to prior examination. However, suspected subacute bilateral L4 pars defects status post pedicle screw removal (sagittal image 58). SPINAL CANAL: No spinal canal narrowing. INTERVERTEBRAL DISCS: Suspected broad-based posterior disc protrusion measuring 4-5 mm at L4-5 which May affect the descending L5 nerve roots suspected bilateral L5-S1 and L4-5 foraminal narrowing. FACETS: Multilevel mild to moderate facet arthropathy. OTHER: None. IMPRESSION: 1. No CT evidence of an acute endplate compression fracture. 2. Suspected subacute bilateral L4 pars defects status post pedicle screw removal. 3. Unchanged ununited obliquely oriented fracture plane of the posterior inferior vertebral body of L 4. Suspected broad-based posterior disc protrusion measuring 4-5 mm at L4-5 which May affect the descending L5 nerve roots. ATED BY: HAILEY GRIFFIN MD DICTATED DATE/TIME: 03/26/252029 SIGNED BY: HAILEY GRIFFIN MD SIGNED DATE/TIME: 03/26/252029 CC: [place] [id number] Ph: [phone] DIAGNOSTIC IMAGING Diagnostic Imaging Report : [id number] Signed PATIENT: LAURA PIZARRO ACCT: [id number] UNIT: [id number] : 1985 LOC: ER ROOM / BED: / AGE / SEX: 40 / F ADM STATUS: REG ER SERVICE 17 ORDERING PHYSICIAN: RAJ DE OLIVEIRA DO PROCEDURE(s): TS2CT - THORACIC SPINE WO CONTRAS REASON: BACK PAIN ORDER NUMBER(s): [id number], ACCESSION NUMBER(s): [id number] CT OF THE THORACIC SPINE WITHOUT CONTRAST HISTORY: BACK PAIN COMPARISON: None TECHNIQUE: Axial images through the thoracic spine were obtained without contrast. Coronal and sagittal reformats were obtained. One or more of the following radiation dose reduction techniques were used for this examination: automated exposure control, adjustment of the mA and/or kV according to patient size, use of iterative reconstruction technique. Dose: CTDIvol: 8.03 mGy, DLP: 319.9 mGy.cm FINDINGS: No acute displaced fracture. The alignment is maintained. There are minimal endplate degenerative changes. The intervertebral disc heights are preserved. There is no CT evidence of high-grade spinal canal or neural foraminal narrowing. The paraspinal soft tissues are unremarkable. Incompletely assessed large right pleural effusion. IMPRESSION: 1. No acute displaced fracture. 2. Incompletely assessed large right pleural effusion. ATED BY: HAILEY GRIFFIN MD DICTATED DATE/TIME: 03/26/252048 SIGNED BY: HAILEY GRIFFIN MD SIGNED DATE/TIME: 03/26/252048 CC: [place] [id number] Ph: [phone] DIAGNOSTIC IMAGING Diagnostic Imaging Report : [id number] Signed PATIENT: LAURA PIZARRO ACCT: [id number] UNIT: [id number] : 1985 LOC: ER ROOM / BED: / AGE / SEX: 40 / F ADM STATUS: REG ER SERVICE 58 ORDERING PHYSICIAN: RAJ DE OLIVEIRA DO PROCEDURE(s): CXRP - CHEST PORTABLE REASON: abn ct ORDER NUMBER(s): [id number], ACCESSION NUMBER(s): [id number] CLINICAL HISTORY: abn ct TECHNIQUE: Single view of the chest was obtained. COMPARISON: CT THORACIC SPINE WO CONTRAS on DOS: 03/26/25, XR CHEST 1 VIEW on DOS: 09/15/23, XR CHEST 1 VIEW on DOS: 09/15/23 FINDINGS: A right chest wall central line terminates at the cavoatrial junction The heart size and pulmonary vasculature are normal. The lungs are clear. IMPRESSION: NO ACUTE CARDIOPULMONARY PROCESS. ATED BY: HAIELY GRIFFIN MD DICTATED DATE/TIME: 03/26/252247 SIGNED BY: HAILEY GRIFFIN MD SIGNED DATE/TIME: 03/26/252247 CC: Time of 1ST Reevaluation: 19:21 Reevaluation 1ST: Unchanged Time of 2ND Reevaluation: 03:39 (Patient is seen ambulating constantly without assistance and without difficulty, in no distress, all over the ED) Reevaluation 2ND: Improved Patient Education/Counseling: Diagnosis, Treatment Family Education/Counseling: No Family Present Comments MDM: patient presented with the above HPI.-low back pain-----workup was initiated. patient was found with the above mentioned diagnosis. the following medications were ordered: please refer to order lists of meds and tests obtained by myself Dr. De Oliveira. Patient ED course and VS have been stabilized. Patient has been reassessed in the ED and remained in a stable condition. Pertinent incidental findings were discussed with the patient and/or family. Patient/family voices understanding and is agreeable with plan. Patient has been observed in the ED adequate length of time to insure improvement/stability. Escalation of care considered: Consideration of escalation to observation or admission Patient seen constantly ambulating in the ED non stopped and does not appear to be in any distress. Patient was admitted to the hospital for pain control and further evaluation of her pleural effusion that was seen on CT scan. Patient denies any respiratory symptoms. Patient was ADMITTED to the medicine team for further evaluation and treatment of their presentation. All the reports of any imaging studies that were ordered by myself were reviewed by myself. Departure 1 Departure Time of Disposition: 22:26 Impression: Primary Impression: Acute exacerbation of chronic low back pain Additional Impressions: Pleural effusion S/P POLICY WRITER shunt Disposition: ADMITTED INPATIENT Admit to: Tele Condition: Guarded Discharged With: Self Critical Care Note Critical Care Time?: No Stability Stability form required: No I personally scribed for RAJ DE OLIVEIRA DO ([email or web address]) on 03/26/25 at 19:21. Electronically submitted by Sunil Castro ([facility]). I personally scribed for RAJ DE OLIVEIRA DO ([email or web address]) on 03/26/25 at 19:34. Electronically submitted by Sunil Castro ([facility]). I personally scribed for RAJ DE OLIVEIRA DO ([email or web address]) on 03/26/25 at 19:35. Electronically submitted by Sunil Castro ([facility]). I personally scribed for RAJ DE OLIVEIRA DO ([email or web address]) on 03/26/25 at 20:53. Electronically submitted by Sunil Castro ([facility]). I personally scribed for RAJ DE OLIVEIRA DO ([email or web address]) on 03/26/25 at 20:55. Electronically submitted by Sunil Castro ([facility]). I personally scribed for RAJ DE OLIVEIRA DO ([facility]) on 03/26/25 at 20:56. Electronically submitted by Sunil Castro ([facility]). I personally scribed for RAJ DE OLIVEIRA DO ([facility]) on 03/27/25 at 01:28. Electronically submitted by Sunil Castro ([facility]). I personally scribed for RAJ DE OLIVEIRA DO ([facility]) on 03/27/25 at 01:30. Electronically submitted by Sunil Castro ([facility]). I personally scribed for RAJ DE OLIVEIRA DO ([facility]) on 03/27/25 at 03:40. Electronically submitted by Sunil Castro ([facility]). RAJ DE OLIVEIRA DO Mar 26, 2025 19:21
--- NOTE | 2025-03-26 20:33 | DVH ---
EXAM: CT LS SPINE WO CONTRAST INDICATION: LOW BACK PAIN TECHNIQUE: Axial images of the lumbar spine have been obtained along with coronal and sagittal reform atted images. CT scans at this facility use dose modulation, iterative reconstruction, and/or weight based dosing when appropriate to reduce radiation dose to as low as reasonably achievable. COMPARISON: CT LS SPINE WO CONTRAST on DOS: 08/05/24 FINDINGS: ANATOMY: Five lumbar-type vertebral bodies are present. The most inferior well-formed disc space will be referred to as L5-S1 for purposes of numbering in this report. Evidence of prior posterior decomp ression with the bilateral hemilaminectomy in the lower lumbar spine with a unipedicular right-sided fusion from L5-S1. Anterior fusion at L5-S1. Status post prior presumed kyphoplasty/vertebroplasty at L3. Prior screw placement with removal at L2. VERTEBRAL BODIES: Upon comparison with the prior examination, persistent ununited obliquely oriented fracture plane of the posterior inferior vertebral body of L3. No evidence of osseous bridging. No C T evidence of an acute endplate compression fracture when compared to prior examination. However, [place] pected subacute bilateral L4 pars defects status post pedicle screw removal (sagittal image 58). SPINAL CANAL: No spinal canal narrowing. INTERVERTEBRAL DISCS: Suspected broad-based posterior disc protrusion measuring 4-5 mm at L4-5 which May affect the descending L5 nerve roots suspected bilateral L5-S1 and L4-5 foraminal narrowing. FACETS: Multilevel mild to moderate facet arthropathy. OTHER: None. IMPRESSION: 1. No CT evidence of an acute endplate compression fracture. 2. Suspected subacute bilateral L4 pars defects status post pedicle screw removal. 3. Unchanged ununited obliquely oriented fracture plane of the posterior inferior vertebral body of L 4. Suspected broad-based posterior disc protrusion measuring 4-5 mm at L4-5 which May affect the desc ending L5 nerve roots.
[2025-03-26 20:35] LABS: Hematocrit 34.0 % (36.0-46.0); Hemoglobin 11.4 g/dL (12.2-16.2); Mean Corpuscular Hemoglobin 30.5 pg (28.0-32.0); Mean Corpuscular Volume 90.8 fL (80.0-100.0); Nucleated Red Blood Cells % 0.1 %
[2025-03-26 20:36] LABS: Alanine Aminotransferase 23 U/L (7-40); Albumin 3.5 g/dL (3.2-4.8); Alkaline Phosphatase 104 U/L (46-116); Anion Gap 10 (5-15); BUN/Creatinine Ratio 19.3 (10.0-20.0); Blood Urea Nitrogen 11 mg/dL (9-23); Carbon Dioxide 20 mmol/L (20-31); Glucose 104 mg/dL (74-106); Potassium 4.4 mmol/L (3.5-5.1); Sodium 142 mmol/L (136-145)
[2025-03-26 20:37] LABS: Bilirubin, Total < 0.2 mg/dL (0.2-1.0); Calcium 8.6 mg/dL (8.7-10.4); Chloride 112 mmol/L (98-107); Total Protein 5.6 g/dL (5.7-8.2)
--- NOTE | 2025-03-26 20:51 | DVH ---
CT OF THE THORACIC SPINE WITHOUT CONTRAST HISTORY: BACK PAIN COMPARISON: None TECHNIQUE: Axial images through the thoracic spine were obtained without contrast. Coronal and sagitt al reformats were obtained. One or more of the following radiation dose reduction techniques were use d for this examination: automated exposure control, adjustment of the mA and/or kV according to patie nt size, use of iterative reconstruction technique. Dose: CTDIvol: 8.03 mGy, DLP: 319.9 mGy.cm FINDINGS: No acute displaced fracture. The alignment is maintained. There are minimal endplate degenerative ch anges. The intervertebral disc heights are preserved. There is no CT evidence of high-grade spinal c anal or neural foraminal narrowing. The paraspinal soft tissues are unremarkable. Incompletely asses sed large right pleural effusion. IMPRESSION: 1. No acute displaced fracture. 2. Incompletely assessed large right pleural effusion.
--- NOTE | 2025-03-26 22:50 | DVH ---
CLINICAL HISTORY: abn ct TECHNIQUE: Single view of the chest was obtained. COMPARISON: CT THORACIC SPINE WO CONTRAS on DOS: 03/26/25, XR CHEST 1 VIEW on DOS: 09/15/23, XR CHEST 1 VIEW on DOS: 09/15/23 FINDINGS: A right chest wall central line terminates at the cavoatrial junction The heart size and pulmonary va sculature are normal. The lungs are clear. IMPRESSION: NO ACUTE CARDIOPULMONARY PROCESS.
[2025-03-27] VITALS (8 sets, daily range): BP systolic 101–110; BP diastolic 68–80; PULSE 88–107; RESP 14–20; TEMP 97.1–98.1; O2SAT 94–99
[2025-03-27] MEDS: HYDROcodone-ACET 5/325MG TAB PO ONE (00:51)
[2025-03-27] MEDS ORDERED: ONDANSETRON HCL 4 MG/2 ML VIAL IV PRN (01:45)
--- NOTE | 2025-03-27 01:58 | DVHHP2 ---
History of Present Illness Reason for Visit: Pleural effusion History of Present Illness The patient is a 40 years old female with multiple past medical history including DJD, lumbar radiculopathy, and anxiety who presented to [facility] ED with complaint of chronic lower back pain exacerbation. Patient reports she has been experiencing dizziness at work, fell without injury 3 days ago, lower back pain radiating to upper back, lower legs, and generalized weakness. Patient was seen and evaluated in the ED, laboratory data shows WBC 4.9, hemoglobin 11.4, hematocrit 34.0, platelets 348, sodium 142, potassium 4.4, BUN 11, creatinine 0.57, glucose 104, calcium 8.6, protein 5.6, BNP 20.25, blood pressure 112/73, heart rate 106, temperature 98.5 F, O2 saturation 99% on room air. Thoracic point CT revealing large right pleural effusion, no acute displaced fracture. Please see medication orders section in the computer. On my assessment, patient denied chest pain, no headache, no dizziness, no shortness of breath, no nausea, no vomiting, no fever, no chills. Patient was admitted for further evaluation and medical management. Past Medical History Anxiety, UTI'S, Chronic pain syndrome, Lumbar radiculopathy, Degenerative joint disease Past Surgical History Back surgery thus December 2024, Removal of hardware, Resection of intestine 2 bowel obstruction, Colostomy bag, Multiple back surgeries Family History Reviewed, noncontributory to the management of this case. Past Social History The patient lives at home, denies smoking, alcohol or illicit drugs abuse. Review of Systems Constitutional: Yes: Weakness; No: Fever, Chills, Sweats, Malaise, Other Eyes: No: Pain, Vision change, Conjunctivae inflammation, Eyelid inflammation, Other, Redness ENT: No: Ear pain, Ear discharge, Nose pain, Nose discharge, Nose congestion, Mouth pain, Mouth swelling, Throat pain, Throat swelling, Other Respiratory: No: Cough, Dry, Shortness of breath, SOB with excertion, Wheezing, Hemoptysis, Pleuritic Pain, Sputum, Wheezing, Other Cardiovascular: No: Chest Pain, Palpitations, Orthopnea, Paroxysmal Noc. Dysp chi, Edema, Lt Headedness, Other Gastrointestinal: Other (Colostomy bag); No: Nausea, Vomiting, Abdominal Pain, Diarrhea, Constipation, Melena, Hematochezia Genitourinary: No Dysuria, No Frequency, No Incontinence, No Hematuria, No Retention, No Other Musculoskeletal: back pain, leg pain; No: other, neck pain, shoulder pain, arm pain, hand pain, foot pain Skin: No: Rash, Lesions, Jaundice, Bruising, Other Neurological: Weakness; No: Numbness, Incoordination, Change in speech, Confusion, Seizures, Other Allergies: Coded Allergies: Lorazepam (Verified Allergy, Unknown, STS IT MAKES HER CRAZY, 08/20/14) Morphine (Verified Allergy, Unknown, HIVES, 08/20/14) Topiramate (Verified Allergy, Unknown, BECOMES ALTERED AND SWOLLEN, 08/20/14) Medications Current Medications Medications Dose Ordered Sig/Koby Route Start Time Stop Time Status Last Admin Dose Admin Dexamethasone Sodium Phosphate 6 mg DAILY IV 03/27/25 10:00 Famotidine 20 mg DAILY IV 03/27/25 10:00 Sodium Chloride 10 ml Q8HR IV 03/27/25 06:00 Acetaminophen/ Hydrocodone Bitart 1 tab Q4HP PRN PO 03/27/25 01:45 Ondansetron HCl 4 mg Q4HP PRN IV 03/27/25 01:45 Docusate Sodium 100 mg BIDPRN PRN PO 03/27/25 01:45 Acetaminophen 650 mg Q6HP PRN PO 03/27/25 01:45 Gabapentin 300 mg TID PO 03/27/25 06:00 Carisoprodol 350 mg [id number] PRN PO 03/27/25 01:45 Exam Vital Signs Vital Signs Date Time Temp Pulse Resp B/P (MAP) Pulse Ox O2 Delivery O2 Flow Rate FiO2 03/27/25 00:24 107 14 99 Room Air* 0 21 03/27/25 00:23 98.5 112/73 (86) 98.5 General Appearance: Alert, Oriented X3, Cooperative, No acute distress HEENT: Atraumatic, PERRLA, EOMI, Mucous membr. moist/pink Respiratory: Normal air movement, Other (Diminished breath sounds) Cardiovascular: Regular rate, Normal S1, Normal S2, No murmurs Abdominal: Normal bowel sounds, Soft, No tenderness, No hepatospenomegaly, No masses Extremities: No clubbing, No cyanosis, No edema, Normal pulses, No tenderness/swelling Skin: No rashes, No breakdown, No significant lesion Neuro: Normal speech, Normal tone, Sensation intact, Cranial nerves 3-12 NL, Reflexes 2+, Other (Generalized weakness) Psych/Mental Status: Mental status NL, Mood NL Labs/Xrays Labs Test 03/26/25 22:46 03/26/25 19:41 03/26/25 19:32 Range/Units B-Type Natriuretic Peptide 20.25 0-100 pg/mL White Blood Count 4.9 4.4-10.8 10^3/uL Red Blood Count 3.74 L 4.0-5.20 10^6/uL Hemoglobin 11.4 L 12.2-16.2 g/dL Hematocrit 34.0 L 36.0-46.0 % Mean Corpuscular Volume 90.8 80.0-100.0 fL Mean Corpuscular Hemoglobin 30.5 28.0-32.0 pg Mean Corpuscular Hemoglobin Concent 33.5 32.0-36.0 g/dL Red Cell Distribution Width 15.4 H 11.8-14.3 % Platelet Count 348 140-450 10^3/uL Mean Platelet Volume 8.1 6.9-10.8 fL Neutrophils (%) (Auto) 46.6 37.0-80.0 % Lymphocytes (%) (Auto) 36.4 10.0-50.0 % Monocytes (%) (Auto) 6.0 0.0-12.0 % Eosinophils (%) (Auto) 9.8 H 0.0-7.0 % Basophils (%) (Auto) 1.2 0.0-2.0 % Neutrophils # (Auto) 2.3 1.6-8.6 10 ^3/uL Lymphocytes # (Auto) 1.8 0.4-5.4 10 ^3/uL Monocytes # (Auto) 0.3 0-1.3 10 ^3/uL Eosinophils # (Auto) 0.5 0-0.8 10 ^3/uL Basophils # (Auto) 0.1 0-0.2 10 ^3/uL Nucleated Red Blood Cells 0.1 % Sodium Level 142 136-145 mmol/L Potassium Level 4.4 3.5-5.1 mmol/L Chloride Level 112 H 98-107 mmol/L Carbon Dioxide Level 20 20-31 mmol/L Anion Gap 10 5-15 Blood Urea Nitrogen 11 9-23 mg/dL Creatinine 0.57 0.550-1.02 mg/dL Glomerular Filtration Rate Calc 117 >90 mL/min BUN/Creatinine Ratio 19.3 10.0-20.0 Serum Glucose 104 74-106 mg/dL Calcium Level 8.6 L 8.7-10.4 mg/dL Total Bilirubin < 0.2 L 0.2-1.0 mg/dL Aspartate Amino Transferase (AST) 32 13-40 U/L Alanine Aminotransferase (ALT) 23 7-40 U/L Alkaline Phosphatase 104 46-116 U/L C-Reactive Protein High Sensitivity 0.17 <1.0 mg/dL Total Protein 5.6 L 5.7-8.2 g/dL Albumin 3.5 3.2-4.8 g/dL PATIENT: LAURA PIZARRO ACCT: [id number] UNIT: [id number] : 1985 LOC: ER ROOM / BED: / AGE / SEX: 40 / F ADM STATUS: REG ER SERVICE 17 ORDERING PHYSICIAN: RAJ DE OLIVEIRA DO PROCEDURE(s): LS2CT - LS SPINE WO CONTRAST REASON: LOW BACK PAIN ORDER NUMBER(s): [id number], ACCESSION NUMBER(s): [id number] EXAM: CT LS SPINE WO CONTRAST INDICATION: LOW BACK PAIN TECHNIQUE: Axial images of the lumbar spine have been obtained along with coronal and sagittal reformatted images. CT scans at this facility use dose modulation, iterative reconstruction, and/or weight based dosing when appropriate to reduce radiation dose to as low as reasonably achievable. COMPARISON: CT LS SPINE WO CONTRAST on DOS: 08/05/24 FINDINGS: ANATOMY: Five lumbar-type vertebral bodies are present. The most inferior well-formed disc space will be referred to as L5-S1 for purposes of numbering in this report. Evidence of prior posterior decompression with the bilateral hemilaminectomy in the lower lumbar spine with a unipedicular right-sided fusion from L5-S1. Anterior fusion at L5-S1. Status post prior presumed kyphoplasty/vertebroplasty at L3. Prior screw placement with removal at L2. VERTEBRAL BODIES: Upon comparison with the prior examination, persistent ununited obliquely oriented fracture plane of the posterior inferior vertebral body of L3. No evidence of osseous bridging. No CT evidence of an acute endplate compression fracture when compared to prior examination. However, suspected subacute bilateral L4 pars defects status post pedicle screw removal (sagittal image 58). SPINAL CANAL: No spinal canal narrowing. INTERVERTEBRAL DISCS: Suspected broad-based posterior disc protrusion measuring 4-5 mm at L4-5 which May affect the descending L5 nerve roots suspected bilateral L5-S1 and L4-5 foraminal narrowing. FACETS: Multilevel mild to moderate facet arthropathy. OTHER: None. IMPRESSION: 1. No CT evidence of an acute endplate compression fracture. 2. Suspected subacute bilateral L4 pars defects status post pedicle screw removal. 3. Unchanged ununited obliquely oriented fracture plane of the posterior inferior vertebral body of L 4. Suspected broad-based posterior disc protrusion measuring 4-5 mm at L4-5 which May affect the descending L5 nerve roots. ORDERING PHYSICIAN: RAJ DE OLIVEIRA DO PROCEDURE(s): TS2CT - THORACIC SPINE WO CONTRAS REASON: BACK PAIN ORDER NUMBER(s): [id number], ACCESSION NUMBER(s): [id number] CT OF THE THORACIC SPINE WITHOUT CONTRAST HISTORY: BACK PAIN COMPARISON: None TECHNIQUE: Axial images through the thoracic spine were obtained without contrast. Coronal and sagittal reformats were obtained. One or more of the following radiation dose reduction techniques were used for this examination: automated exposure control, adjustment of the mA and/or kV according to patient size, use of iterative reconstruction technique. Dose: CTDIvol: 8.03 mGy, DLP: 319.9 mGy.cm FINDINGS: No acute displaced fracture. The alignment is maintained. There are minimal endplate degenerative changes. The intervertebral disc heights are preserved. There is no CT evidence of high-grade spinal canal or neural foraminal narrowing. The paraspinal soft tissues are unremarkable. Incompletely assessed large right pleural effusion. IMPRESSION: 1. No acute displaced fracture. 2. Incompletely assessed large right pleural effusion. ORDERING PHYSICIAN: RAJ DE OLIVEIRA DO PROCEDURE(s): CXRP - CHEST PORTABLE REASON: abn ct ORDER NUMBER(s): [id number], ACCESSION NUMBER(s): [id number] CLINICAL HISTORY: abn ct TECHNIQUE: Single view of the chest was obtained. COMPARISON: CT THORACIC SPINE WO CONTRAS on DOS: 03/26/25, XR CHEST 1 VIEW on DOS: 09/15/23, XR CHEST 1 VIEW on DOS: 09/15/23 FINDINGS: A right chest wall central line terminates at the cavoatrial junction The heart size and pulmonary vasculature are normal. The lungs are clear. IMPRESSION: NO ACUTE CARDIOPULMONARY PROCESS. SEPSIS Sepsis Screen Date sepsis recognized/suspect: Mar 26, 2025 Time Sepsis recognized/suspect: 1912 Recent Procedure: No On Antibiotic Therapy: No Respiratory Rate >20: No Heart Rate >90: Yes Temp<36 C (96.8 F) or >38.3 C: No SBP <90 or MAP <65 mmHG: No New Acute Mental Status Change: No Is the patient on CPAP, BIPAP,: No Physician Orders Thoracic Spine Wo Contras (03/26/25 19:18) Admissions Gate Attendant (03/26/25 ) Ls Spine Wo Contrast (03/26/25 19:18) Chest Portable (03/26/25 21:59) Complete Blood Count (03/27/25 04:00) Comprehensive Metabolic Panel (03/27/25 04:00) *Consult / (03/27/25 01:32) Dexamethasone Injection (Decadron Inject (03/27/25 10:00) Famotidine Injection (Pepcid Injection) (03/27/25 10:00) Allergies (03/27/25 01:32) Code Status (03/27/25 01:32) Sodium Chloride Lock (Saline Lock Ns) (03/27/25 06:00) Oxygen Per Hour (03/27/25 01:32) Hydrocodone-Acet 5/325mg Tab (Mccammon (03/27/25 01:45) Ondansetron Hcl (Zofran) (03/27/25 01:45) Docusate Sodium Capsule (Colace Capsule) (03/27/25 01:45) Fall Risk Precautions In Place QSHIFT (03/27/25 01:32) Complete Blood Count (03/28/25 04:00) Comprehensive Metabolic Panel (03/28/25 04:00) Cardiac Diet-2gna,Lofat,Lochol (03/27/25 Breakfast) Condition: Serious (03/27/25 01:32) Acetaminophen Tablet (Tylenol Tablet) (03/27/25 01:45) Maintain Bed Rest (03/27/25 01:32) Sequential Compression Device (03/27/25 ) Gabapentin Capsule (Neurontin Capsule) (03/27/25 06:00) Carisoprodol Tablet (Soma Tablet) (03/27/25 01:45) Admit (03/27/25 01:55) Nitroglycerin Sublingual (Ntrostat Subli (03/27/25 02:00) Stat Ekg For Chest Pain (03/27/25 01:55) Notify Md Of Changes From Base (03/27/25 01:55) Hand Quilter For 24 Hours (03/27/25 01:55) Emergency Dysrhythmia Protocol (03/27/25 01:55) Rhythm Strips Once Every Shift (03/27/25 01:55) Oxygen By Nasal Cannula (03/27/25 01:55) Diphenhdramine Injection (Benadryl Injec (03/27/25 02:00) Vital Signs Date Time Temp Pulse Resp B/P (MAP) Pulse Ox O2 Delivery O2 Flow Rate FiO2 03/27/25 00:24 107 14 99 Room Air* 0 21 03/27/25 00:23 98.5 107 14 112/73 (86) 99 98.5 03/26/25 19:12 98.4 108 18 113/72 99 98.4 Laboratory Tests Test 03/26/25 19:41 White Blood Count 4.9 10^3/uL (4.4-10.8) Medications Medications Dose Ordered Sig/Koby Route Start Time Stop Time Status Last Admin Dose Admin Acetaminophen/ Hydrocodone Bitart 1 tab ONCE ONCE PO 03/26/25 19:30 03/26/25 19:31 DC 03/27/25 00:51 1 TAB Assessment/Plan Assessment/Plan Acute exacerbation of chronic low back pain Pleural effusion Generalized weakness S/P TERRITORY MANAGER shunt Plan 1. Admit to telemetry unit 2. Breathing treatment 3. Pain control management 4. Management of fluids and electrolytes 5. Consultation for hospitalist 6. Diagnostic tests thoracic spine CT 7. DVT prophylaxis on SCDs 8. Repeat labs CBC, CMP in a.m. 9. Continue with current medical management 10. Treatment plan discussed with patient and RN. Patient verbalized understanding. Plan discussed with: Patient, Other (RN) My Orders Orders - RUBEN CROSS DNP Procedure Category Date Status Time Complete Blood Count LAB 03/27/25 Logged 04:00 Comprehensive LAB 03/27/25 Logged Metabolic Panel 04:00 *Consult CONS 03/27/25 Transmitted / 01:32 Dexamethasone PHA 03/27/25 In Process Injection (Decadron 10:00 Famotidine Injection PHA 03/27/25 In Process (Pepcid Injection) 10:00 Allergies RICKY 03/27/25 In Process 01:32 Code Status CODE 03/27/25 Transmitted 01:32 Sodium Chloride Lock PHA 03/27/25 In Process (Saline Lock Ns) 06:00 Oxygen Per Hour RT 03/27/25 Transmitted 01:32 Hydrocodone-Acet PHA 03/27/25 In Process 5/325mg Tab (Mccammon 01:45 Ondansetron Hcl PHA 03/27/25 In Process (Zofran) 01:45 Docusate Sodium PHA 03/27/25 In Process Capsule (Colace 01:45 Fall Risk Precautions RICKY 03/27/[address] 01:32 Complete Blood Count LAB 03/28/25 Verified 04:00 Comprehensive LAB 03/28/25 Verified Metabolic Panel 04:00 Cardiac DIET 03/27/25 Transmitted Diet-2gna,Lofat,Lochol Breakfast Condition: Serious RICKY 03/27/25 In Process 01:32 Acetaminophen Tablet PHA 03/27/25 In Process (Tylenol Tablet) 01:45 Maintain Bed Rest [facility] 03/27/25 In Process 01:32 Sequential RICKY 03/27/25 In Process Compression Device Gabapentin Capsule PHA 03/27/25 In Process (Neurontin Capsule) 06:00 Carisoprodol Tablet PHA 03/27/25 In Process (Soma Tablet) 01:45 Admit ADMIT 03/27/25 Verified 01:55 Nitroglycerin [facility] 03/27/25 Verified Sublingual (Ntrostat 02:00 Stat Ekg For Chest [facility] 03/27/25 Verified Pain 01:55 Notify Md Of Changes [facility] 03/27/25 Verified From Base 01:55 Hand Quilter For [facility] 03/27/25 Verified 24 Hours 01:55 Emergency Dysrhythmia [facility] 03/27/25 Verified Protocol 01:55 Rhythm Strips Once [facility] 03/27/25 Verified Every Shift 01:55 Oxygen By Nasal RT 03/27/25 Verified Cannula 01:55 Diphenhdramine PHA 03/27/25 Verified Injection (Benadryl 02:00 Problem List: (1) Acute exacerbation of chronic low back pain (2) Pleural effusion (3) Generalized weakness (4) S/P TERRITORY MANAGER shunt Date of Service: Mar 27, 2025 Billing Provider: RUBEN CROSS DNP Common Visit Codes: 69898-SORAMFA INP/OBS CARE (HIGH) RUBEN CROSS DNP Mar 27, 2025 01:58
[2025-03-27] MEDS ORDERED: NITROGLYCERIN 0.4 MG SL TAB SL PRN (02:00)
[2025-03-27] MEDS: HYDROmorphone HCL 2 MG/ML VL/or syr IV PRN (04:27)
[2025-03-27] MEDS: diphenhdrAMINE HCL 50 MG/1 ML VL IV PRN (04:27)
[2025-03-27 07:01] LABS: Alanine Aminotransferase 32 U/L (7-40); Albumin 4.0 g/dL (3.2-4.8); Alkaline Phosphatase 107 U/L (46-116); Anion Gap 10 (5-15); BUN/Creatinine Ratio 23.4 (10.0-20.0); Blood Urea Nitrogen 15 mg/dL (9-23); Calcium 9.0 mg/dL (8.7-10.4); Potassium 4.8 mmol/L (3.5-5.1); Sodium 140 mmol/L (136-145); Total Protein 6.2 g/dL (5.7-8.2)
[2025-03-27 07:02] LABS: Bilirubin, Total < 0.2 mg/dL (0.2-1.0); Carbon Dioxide 20 mmol/L (20-31); Chloride 110 mmol/L (98-107); Glucose 107 mg/dL (74-106)
[2025-03-27 07:07] LABS: Hematocrit 39.0 % (36.0-46.0); Hemoglobin 12.7 g/dL (12.2-16.2); Mean Corpuscular Hemoglobin 30.9 pg (28.0-32.0); Mean Corpuscular Volume 95.0 fL (80.0-100.0); Nucleated Red Blood Cells % 0.0 %
[2025-03-27] MEDS: FAMOTIDINE (10MG/ML) 2ML VL IV SCH (09:31)
[2025-03-27] MEDS: GABAPENTIN 300 MG CAP PO SCH (09:38)
[2025-03-27] MEDS ORDERED: CELE100C82 PO ×2 (10:42)
[2025-03-27] MEDS ORDERED: TRAM50TA2 PO (10:42)
[2025-03-27] MEDS ORDERED: ALPR1TAB2 PO (10:42)
[2025-03-27] MEDS ORDERED: CABE0.5T PO (10:42)
[2025-03-27] MEDS ORDERED: MULT-1018 PO (10:42)
[2025-03-27] MEDS ORDERED: DULO60CA41 PO (10:42)
[2025-03-27] MEDS: CARISOPRODOL 350 MG TAB PO PRN (11:11)
[2025-03-27] MEDS: KETOROLAC TROMETH 30 MG/ML 1ML VIAL IV ONE (13:48)
[2025-03-27] MEDS: SODIUM CHLOR 0.9% PF (SALINE LOCK) 10ML VIAL/SYR IV SCH (13:49)
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
--- NOTE | 2025-03-27 14:32 | DVHNC2 ---
Procedure - Procedure- Right sided Thoracentesis ultrasound guided Indication- Pleural effusions Procedure in detail Consent was obtained and timeout performed per protocol. The patient was placed in the sitting position and ultrasound SonoSite was used to localize pleural fluid. ChloraPrep was used to clean the operative field and Lidocaine for local analgesia. Thoracentesis catheter was advanced over the needle, attached to the suction bottle and approximately 100 cc of crystal clear fluid was drained from the right pleural space. At the end of the procedure, the catheter was removed and dressing applied. Samples obtained for diagnostic testing. Chest-x ray ordered. No complications NEHAL NG MD Mar 27, 2025 14:32
[2025-03-27] MEDS: HYDROcodone-ACET 5/325MG TAB PO PRN (17:17)
[2025-03-27] MEDS: DOCUSATE SOD 100 MG CAP PO PRN (23:39)
[2025-03-28] VITALS (8 sets, daily range): BP systolic 104–120; BP diastolic 62–80; PULSE 81–102; RESP 17–19; TEMP 96.1–98.4; O2SAT 98–100
[2025-03-28 10:12] LABS: Hematocrit 33.8 % (36.0-46.0); Hemoglobin 10.8 g/dL (12.2-16.2); Mean Corpuscular Hemoglobin 30.1 pg (28.0-32.0); Mean Corpuscular Volume 94.0 fL (80.0-100.0); Nucleated Red Blood Cells % 0.1 %
[2025-03-28 10:25] LABS: Alanine Aminotransferase 33 U/L (7-40); Albumin 3.8 g/dL (3.2-4.8); Alkaline Phosphatase 97 U/L (46-116); Anion Gap 9 (5-15); BUN/Creatinine Ratio 21.7 (10.0-20.0); Blood Urea Nitrogen 13 mg/dL (9-23); Calcium 8.7 mg/dL (8.7-10.4); Carbon Dioxide 25 mmol/L (20-31); Chloride 106 mmol/L (98-107); Potassium 4.0 mmol/L (3.5-5.1); Sodium 140 mmol/L (136-145); Total Protein 5.9 g/dL (5.7-8.2)
[2025-03-28 10:26] LABS: Bilirubin, Total < 0.2 mg/dL (0.2-1.0); Glucose 67 mg/dL (74-106)
[2025-03-28 13:07] LABS: Glucose, Body Fluid 72.0 mg/dL (.)
--- NOTE | 2025-03-28 13:36 | DVHPN2 ---
Progress Note - Dictate Date Seen: Mar 28, 2025 Has the PT tested + for MRSA If YES, has PT been informed?: No Medical Necessity Reason Pt with a Central, PICC or Fol: No vital signs Vital Sign Date Time Temp Pulse Resp B/P (MAP) Pulse Ox O2 Delivery O2 Flow Rate FiO2 03/28/25 13:00 98.4 92 19 120/74 (89) 99 98.4 03/28/25 08:00 Room Air* 0 21 Total Intake and Output 03/27/25 03/27/25 03/28/25 15:00 23:00 07:00 Intake Total 1540 ml 800 ml Balance 1540 ml 800 ml medications Current Medications Medications Dose Ordered Sig/Koby Route Start Time Stop Time Status Last Admin Dose Admin Dexamethasone Sodium Phosphate 6 mg DAILY IV 03/27/25 10:00 03/28/25 09:50 6 MG Famotidine 20 mg DAILY IV 03/27/25 10:00 03/28/25 09:50 20 MG Sodium Chloride 10 ml Q8HR IV 03/27/25 06:00 03/28/25 05:43 10 ML Acetaminophen/ Hydrocodone Bitart 1 tab Q4HP PRN PO 03/27/25 01:45 03/28/25 08:16 1 TAB Ondansetron HCl 4 mg Q4HP PRN IV 03/27/25 01:45 Docusate Sodium 100 mg BIDPRN PRN PO 03/27/25 01:45 03/27/25 23:39 100 MG Acetaminophen 650 mg Q6HP PRN PO 03/27/25 01:45 Gabapentin 300 mg TID PO 03/27/25 06:00 03/28/25 05:41 300 MG Carisoprodol 350 mg [id number] PRN PO 03/27/25 01:45 03/28/25 11:50 350 MG Nitroglycerin 0.4 mg Q5MINP PRN SL 03/27/25 02:00 Diphenhydramine HCl 25 mg Q4HP PRN IV 03/27/25 02:00 03/28/25 09:51 25 MG Hydromorphone HCl 0.5 mg Q4HPRN PRN IV 03/27/25 04:00 03/28/25 09:51 0.5 MG laboratory and microbiology Laboratory Tests 03/28/25 09:22 Test 03/28/25 09:22 Range/Units Serum Glucose 67 L 74-106 mg/dL Assessment/Plan right pl effusion atelectases back pain TRANSPORTATION AID shunt pl fluid results noted no specific cont pain contro;l IS management p[er primary team Plan discussed with: Patient, Other NEHAL NG MD Mar 28, 2025 13:36
--- NOTE | 2025-03-28 15:12 | DVHPN2 ---
Subjective The patient is seen and examined at bedside. Complaint being very anxious and about to have panic attack. She said she is supposed to take Xanax 1 mg p.o. twice per day by home medication however she did not have it here. Complain of severe back pain. Reviewed: Care Plan, H&P, Labs, Medications, Previous Orders, Radiology Changes from previous H/P or p: No Changes Eyes: No Pain, No Vision change, No Conjunctivae inflammation, No Eyelid inflammation, No Other, No Redness ENT: No Ear pain, No Ear discharge, No Nose pain, No Nose discharge, No Nose congestion, No Mouth pain, No Mouth swelling, No Throat pain, No Throat swelling, No Other Cardiovascular: No Chest Pain, No Palpitations, No Orthopnea, No Paroxysmal Noc. Dyspnea, No Edema, No Lt Headedness, No Other Respiratory: No Cough, No Dry, No Shortness of breath, No SOB with excertion, No Wheezing, No Hemoptysis, No Pleuritic Pain, No Sputum, No Other Gastrointestinal: No Nausea, No Vomiting, No Abdominal Pain, No Diarrhea, No Constipation, No Melena, No Hematochezia; Other (Colostomy bag) Genitourinary: No Dysuria, No Frequency, No Incontinence, No Hematuria, No Retention, No Other Musculoskeletal: No other, No neck pain, No shoulder pain, No arm pain; back pain; No hand pain; leg pain; No foot pain Skin: No Rash, No Lesions, No Jaundice, No Bruising, No Other Objective Vitals Vital Signs Date Time Temp Pulse Resp B/P (MAP) Pulse Ox O2 Delivery O2 Flow Rate FiO2 03/28/25 13:56 102 18 116/71 03/28/25 13:00 98.4 99 98.4 03/28/25 08:00 Room Air* 0 21 Intake/Output Intake and Output 03/28/25 06:59 Intake Total 2340 ml Balance 2340 ml Intake Oral 2340 ml # Voids 10 General Appearance: Alert, Oriented X3, Cooperative, No acute distress HEENT: Atraumatic, PERRLA, EOMI, Mucous membr. moist/pink Neck: Supple Lungs: Clear to auscultation, Normal air movement Cardiovascular: Regular rate, Normal S1, Normal S2, No murmurs, Gallops, Rubs Abdomen: Normal bowel sounds, Soft, No tenderness Neuro: Cranial nerves 3-12 NL Psych/Mental Status: Mental status NL Medications Current Medications Medications Dose Ordered Sig/Koby Route Start Time Stop Time Status Last Admin Dose Admin Dexamethasone Sodium Phosphate 6 mg DAILY IV 03/27/25 10:00 03/28/25 09:50 6 MG Famotidine 20 mg DAILY IV 03/27/25 10:00 03/28/25 09:50 20 MG Sodium Chloride 10 ml Q8HR IV 03/27/25 06:00 03/28/25 05:43 10 ML Acetaminophen/ Hydrocodone Bitart 1 tab Q4HP PRN PO 03/27/25 01:45 03/28/25 08:16 1 TAB Ondansetron HCl 4 mg Q4HP PRN IV 03/27/25 01:45 Docusate Sodium 100 mg BIDPRN PRN PO 03/27/25 01:45 03/27/25 23:39 100 MG Acetaminophen 650 mg Q6HP PRN PO 03/27/25 01:45 Gabapentin 300 mg TID PO 03/27/25 06:00 03/28/25 05:41 300 MG Carisoprodol 350 mg [id number] PRN PO 03/27/25 01:45 03/28/25 11:50 350 MG Nitroglycerin 0.4 mg Q5MINP PRN SL 03/27/25 02:00 Diphenhydramine HCl 25 mg Q4HP PRN IV 03/27/25 02:00 03/28/25 13:55 25 MG Hydromorphone HCl 0.5 mg Q4HPRN PRN IV 03/27/25 04:00 03/28/25 13:56 0.5 MG Laboratory Results Laboratory Tests 03/28/25 09:22 Chemistry Test 03/28/25 09:22 Albumin 3.8 g/dL (3.2-4.8) Calcium Level 8.7 mg/dL (8.7-10.4) Total Protein 5.9 g/dL (5.7-8.2) LFT Test 03/28/25 09:22 Alanine Aminotransferase (ALT) 33 U/L (7-40) Alkaline Phosphatase 97 U/L (46-116) Aspartate Amino Transferase (AST) 32 U/L (13-40) Total Bilirubin < 0.2 mg/dL (0.2-1.0) L Labs and/or images reviewed: Labs reviewed by me Assessment/Plan Assessment/Plan Acute exacerbation of chronic low back pain Pleural effusion status post thoracocentesis Generalized weakness S/P PATTERN KEEPER shunt Anxiety Continuing current management. Continuing with pain medication. I will restart her home med with Xanax 1 mg p.o. b.i.d.. We will monitor her pleural effusion. Per CT scan of her spine patient had disc protrusion and missing screw in her imaging. Anticipate spine surgeon evaluation if back pain is not improved. This medical document was created using an electronic medical record system with [employer] direct computerized dictation system. Although this document has been carefully reviewed, there may still be some phonetic and typographical errors. These areas are purely typographical due to imperfections of the software programs, and do not reflect any compromise in the patient's medical care. Plan discussed with: Patient Date of Service: Mar 28, 2025 Billing Provider: CHIDI PALACIOS MD Common Visit Codes: [id number] INP/OBS CARE(HIGH) CHIDI PALACIOS MD Mar 28, 2025 15:12
[2025-03-28] MEDS: ALPRAZolam 0.5 MG TAB PO PRN (17:01)
[2025-03-29] VITALS (8 sets, daily range): BP systolic 104–116; BP diastolic 55–77; PULSE 78–106; RESP 14–20; TEMP 97.2–98.7; O2SAT 97–100
[2025-03-29 07:24] LABS: Hematocrit 34.1 % (36.0-46.0); Hemoglobin 11.3 g/dL (12.2-16.2); Mean Corpuscular Hemoglobin 30.7 pg (28.0-32.0); Mean Corpuscular Volume 92.7 fL (80.0-100.0); Nucleated Red Blood Cells % 0.1 %
[2025-03-29 07:47] LABS: Anion Gap 9 (5-15); Carbon Dioxide 25 mmol/L (20-31); Chloride 106 mmol/L (98-107); Potassium 4.1 mmol/L (3.5-5.1); Sodium 140 mmol/L (136-145)
[2025-03-29 07:48] LABS: Calcium 9.0 mg/dL (8.7-10.4)
[2025-03-29 07:53] LABS: BUN/Creatinine Ratio 17.5 (10.0-20.0); Blood Urea Nitrogen 11 mg/dL (9-23); Glucose 80 mg/dL (74-106)
[2025-03-29] MEDS: FUROSEMIDE 40 MG/4 ML VIAL IV SCH (08:43)
--- NOTE | 2025-03-29 14:55 | DVHPN2 ---
Progress Note - Dictate Date Seen: Mar 29, 2025 Has the PT tested + for MRSA If YES, has PT been informed?: No Medical Necessity Reason Pt with a Central, PICC or Fol: No vital signs Vital Sign Date Time Temp Pulse Resp B/P (MAP) Pulse Ox O2 Delivery O2 Flow Rate FiO2 03/29/25 13:15 93 18 111/74 03/29/25 13:00 98.7 100 98.7 03/29/25 08:00 Room Air* 0 21 Total Intake and Output 03/28/25 03/28/25 03/29/25 15:00 23:00 07:00 Intake Total 860 ml 700 ml Balance 860 ml 700 ml medications Current Medications Medications Dose Ordered Sig/Koby Route Start Time Stop Time Status Last Admin Dose Admin Dexamethasone Sodium Phosphate 6 mg DAILY IV 03/27/25 10:00 03/29/25 08:53 6 MG Famotidine 20 mg DAILY IV 03/27/25 10:00 03/29/25 08:47 20 MG Sodium Chloride 10 ml Q8HR IV 03/27/25 06:00 03/29/25 13:14 10 ML Acetaminophen/ Hydrocodone Bitart 1 tab Q4HP PRN PO 03/27/25 01:45 03/28/25 08:16 1 TAB Ondansetron HCl 4 mg Q4HP PRN IV 03/27/25 01:45 Docusate Sodium 100 mg BIDPRN PRN PO 03/27/25 01:45 03/28/25 22:44 100 MG Acetaminophen 650 mg Q6HP PRN PO 03/27/25 01:45 Gabapentin 300 mg TID PO 03/27/25 06:00 03/29/25 13:23 300 MG Carisoprodol 350 mg [id number] PRN PO 03/27/25 01:45 03/29/25 11:39 350 MG Nitroglycerin 0.4 mg Q5MINP PRN SL 03/27/25 02:00 Diphenhydramine HCl 25 mg Q4HP PRN IV 03/27/25 02:00 03/29/25 13:17 25 MG Hydromorphone HCl 0.5 mg Q4HPRN PRN IV 03/27/25 04:00 03/29/25 13:15 0.5 MG Furosemide 40 mg DAILY IV 03/29/25 10:00 03/29/25 08:43 40 MG Alprazolam 1 mg [id number] PRN PO 03/28/25 16:15 03/29/25 05:12 1 MG laboratory and microbiology Laboratory Tests 03/29/25 06:10 Test 03/29/25 06:10 Range/Units Serum Glucose 80 74-106 mg/dL Assessment/Plan right pl effusion atelectases back 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
--- NOTE | 2025-03-29 22:59 | DVHPN2 ---
Subjective The patient is seen and examined at bedside. Complain of severe back pain. Reviewed: Care Plan, H&P, Labs, Medications, Previous Orders, Radiology Changes from previous H/P or p: No Changes Eyes: No Pain, No Vision change, No Conjunctivae inflammation, No Eyelid inflammation, No Other, No Redness ENT: No Ear pain, No Ear discharge, No Nose pain, No Nose discharge, No Nose congestion, No Mouth pain, No Mouth swelling, No Throat pain, No Throat swelling, No Other Cardiovascular: No Chest Pain, No Palpitations, No Orthopnea, No Paroxysmal Noc. Dyspnea, No Edema, No Lt Headedness, No Other Respiratory: No Cough, No Dry, No Shortness of breath, No SOB with excertion, No Wheezing, No Hemoptysis, No Pleuritic Pain, No Sputum, No Other Gastrointestinal: No Nausea, No Vomiting, No Abdominal Pain, No Diarrhea, No Constipation, No Melena, No Hematochezia; Other (Colostomy bag) Genitourinary: No Dysuria, No Frequency, No Incontinence, No Hematuria, No Retention, No Other Musculoskeletal: No other, No neck pain, No shoulder pain, No arm pain; back pain; No hand pain; leg pain; No foot pain Skin: No Rash, No Lesions, No Jaundice, No Bruising, No Other Objective Vitals Vital Signs Date Time Temp Pulse Resp B/P (MAP) Pulse Ox O2 Delivery O2 Flow Rate FiO2 03/29/25 22:10 78 17 127/80 03/29/25 21:00 97.2 100 97.2 03/29/25 08:00 Room Air* 0 21 Intake/Output Intake and Output 03/29/25 07:00 Intake Total 1560 ml Balance 1560 ml Intake Oral 1560 ml # Voids 7 General Appearance: Alert, Oriented X3, Cooperative, No acute distress HEENT: Atraumatic, PERRLA, EOMI, Mucous membr. moist/pink Neck: Supple Lungs: Clear to auscultation, Normal air movement Cardiovascular: Regular rate, Normal S1, Normal S2, No murmurs, Gallops, Rubs Abdomen: Normal bowel sounds, Soft, No tenderness Neuro: Cranial nerves 3-12 NL Psych/Mental Status: Mental status NL Medications Current Medications Medications Dose Ordered Sig/Koby Route Start Time Stop Time Status Last Admin Dose Admin Dexamethasone Sodium Phosphate 6 mg DAILY IV 03/27/25 10:00 03/29/25 08:53 6 MG Famotidine 20 mg DAILY IV 03/27/25 10:00 03/29/25 08:47 20 MG Sodium Chloride 10 ml Q8HR IV 03/27/25 06:00 03/29/25 21:44 10 ML Acetaminophen/ Hydrocodone Bitart 1 tab Q4HP PRN PO 03/27/25 01:45 03/29/25 20:15 1 TAB Ondansetron HCl 4 mg Q4HP PRN IV 03/27/25 01:45 Docusate Sodium 100 mg BIDPRN PRN PO 03/27/25 01:45 03/29/25 21:38 100 MG Acetaminophen 650 mg Q6HP PRN PO 03/27/25 01:45 Gabapentin 300 mg TID PO 03/27/25 06:00 03/29/25 21:38 300 MG Carisoprodol 350 mg [id number] PRN PO 03/27/25 01:45 03/29/25 20:14 350 MG Nitroglycerin 0.4 mg Q5MINP PRN SL 03/27/25 02:00 Diphenhydramine HCl 25 mg Q4HP PRN IV 03/27/25 02:00 03/29/25 21:38 25 MG Hydromorphone HCl 0.5 mg Q4HPRN PRN IV 03/27/25 04:00 03/29/25 21:40 0.5 MG Furosemide 40 mg DAILY IV 03/29/25 10:00 03/29/25 08:43 40 MG Alprazolam 1 mg [id number] PRN PO 03/28/25 16:15 03/29/25 05:12 1 MG Laboratory Results Laboratory Tests 03/29/25 06:10 Chemistry Test 03/29/25 06:10 Calcium Level 9.0 mg/dL (8.7-10.4) Labs and/or images reviewed: Labs reviewed by me Assessment/Plan Assessment/Plan Acute exacerbation of chronic low back pain Pleural effusion status post thoracocentesis Generalized weakness 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 Continuing with pain medication. Continue her home med with Xanax 1 mg p.o. b.i.d.. We will monitor her pleural effusion. Per CT scan of her spine patient had disc protrusion and missing screw in her imaging. Anticipate spine surgeon evaluation if back pain is not improved. This medical document was created using an electronic medical record system with [employer] direct computerized dictation system. Although this document has been carefully reviewed, there may still be some phonetic and typographical errors. These areas are purely typographical due to imperfections of the software programs, and do not reflect any compromise in the patient's medical care. Plan discussed with: Patient My Orders Orders - CHIDI PALACIOS MD Procedure Category Date Status Time Complete Blood Count LAB 03/30/25 Verified 05:00 Complete Blood Count LAB 03/31/25 Verified 05:00 Basic Metabolic Panel LAB 03/30/25 Verified 05:00 Basic Metabolic Panel LAB 03/31/25 Verified 05:00 Date of Service: Mar 29, 2025 Billing Provider: CHIDI PALACIOS MD Common Visit Codes: [id number] INP/OBS CARE(HIGH) CHIDI PALACIOS MD Mar 29, 2025 22:59
[2025-03-30] VITALS (8 sets, daily range): BP systolic 106–116; BP diastolic 67–79; PULSE 77–86; RESP 16–18; TEMP 97.1–98.1; O2SAT 94–100
--- NOTE | 2025-03-30 11:03 | DVHPN2 ---
Subjective The patient is seen and examined at bedside. Complain of severe back pain. Reviewed: Care Plan, H&P, Labs, Medications, Previous Orders, Radiology Changes from previous H/P or p: No Changes Eyes: No Pain, No Vision change, No Conjunctivae inflammation, No Eyelid inflammation, No Other, No Redness ENT: No Ear pain, No Ear discharge, No Nose pain, No Nose discharge, No Nose congestion, No Mouth pain, No Mouth swelling, No Throat pain, No Throat swelling, No Other Cardiovascular: No Chest Pain, No Palpitations, No Orthopnea, No Paroxysmal Noc. Dyspnea, No Edema, No Lt Headedness, No Other Respiratory: No Cough, No Dry, No Shortness of breath, No SOB with excertion, No Wheezing, No Hemoptysis, No Pleuritic Pain, No Sputum, No Other Gastrointestinal: No Nausea, No Vomiting, No Abdominal Pain, No Diarrhea, No Constipation, No Melena, No Hematochezia; Other (Colostomy bag) Genitourinary: No Dysuria, No Frequency, No Incontinence, No Hematuria, No Retention, No Other Musculoskeletal: No other, No neck pain, No shoulder pain, No arm pain; back pain; No hand pain; leg pain; No foot pain Skin: No Rash, No Lesions, No Jaundice, No Bruising, No Other Objective Vitals Vital Signs Date Time Temp Pulse Resp B/P (MAP) Pulse Ox O2 Delivery O2 Flow Rate FiO2 03/30/25 09:14 110/66 03/30/25 08:56 97.8 86 16 100 97.8 03/30/25 08:00 Room Air* 0 21 Intake/Output Intake and Output 03/30/25 07:00 Intake Total 300 ml Balance 300 ml Intake Oral 300 ml # Voids 4 # Bowel Movements 1 General Appearance: Alert, Oriented X3, Cooperative, No acute distress HEENT: Atraumatic, PERRLA, EOMI, Mucous membr. moist/pink Neck: Supple Lungs: Clear to auscultation, Normal air movement Cardiovascular: Regular rate, Normal S1, Normal S2, No murmurs, Gallops, Rubs Abdomen: Normal bowel sounds, Soft, No tenderness Neuro: Cranial nerves 3-12 NL Psych/Mental Status: Mental status NL Medications Current Medications Medications Dose Ordered Sig/Koby Route Start Time Stop Time Status Last Admin Dose Admin Dexamethasone Sodium Phosphate 6 mg DAILY IV 03/27/25 10:00 03/30/25 09:13 6 MG Famotidine 20 mg DAILY IV 03/27/25 10:00 03/30/25 09:13 20 MG Sodium Chloride 10 ml Q8HR IV 03/27/25 06:00 03/30/25 06:04 10 ML Acetaminophen/ Hydrocodone Bitart 1 tab Q4HP PRN PO 03/27/25 01:45 03/30/25 04:32 1 TAB Ondansetron HCl 4 mg Q4HP PRN IV 03/27/25 01:45 Docusate Sodium 100 mg BIDPRN PRN PO 03/27/25 01:45 03/29/25 21:38 100 MG Acetaminophen 650 mg Q6HP PRN PO 03/27/25 01:45 Gabapentin 300 mg TID PO 03/27/25 06:00 03/30/25 06:03 300 MG Carisoprodol 350 mg [id number] PRN PO 03/27/25 01:45 03/30/25 10:16 350 MG Nitroglycerin 0.4 mg Q5MINP PRN SL 03/27/25 02:00 Diphenhydramine HCl 25 mg Q4HP PRN IV 03/27/25 02:00 03/30/25 08:55 25 MG Hydromorphone HCl 0.5 mg Q4HPRN PRN IV 03/27/25 04:00 03/30/25 08:55 0.5 MG Furosemide 40 mg DAILY IV 03/29/25 10:00 03/30/25 09:14 40 MG Alprazolam 1 mg [id number] PRN PO 03/28/25 16:15 03/29/25 23:25 1 MG Laboratory Results Laboratory Tests 03/29/25 06:10 Labs and/or images reviewed: Labs reviewed by me Assessment/Plan Assessment/Plan Acute exacerbation of chronic low back pain Pleural effusion status post thoracocentesis Generalized weakness 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 Anxiety Continuing current management. Continuing with pain medication. Continue her home med with Xanax 1 mg p.o. b.i.d.. We will monitor her pleural effusion. Per CT scan of her spine patient had disc protrusion and missing screw in her imaging. Will consult spine surgeon to evaluate the back pain PT to get the patient out of bed and ambulate. CM consult to transfer patient to higher level of care for FOOD ANALYST shunt repair. This medical document was created using an electronic medical record system with [employer] direct computerized dictation system. Although this document has been carefully reviewed, there may still be some phonetic and typographical errors. These areas are purely typographical due to imperfections of the software programs, and do not reflect any compromise in the patient's medical care. Plan discussed with: Patient, Other (RN) My Orders Orders - CHIDI PALACIOS MD Procedure Category Date Status Time Consultdr. Ilya CONS 03/30/25 Transmitted [place](Spine) 11:01 Pt Request For Service PT 03/30/25 Transmitted 11:01 Date of Service: Mar 30, 2025 Billing Provider: CHIDI PALACIOS MD Common Visit Codes: [id number] INP/OBS CARE(HIGH) CHIDI PALACIOS MD Mar 30, 2025 11:03
[2025-03-30 12:15] LABS: Hematocrit 41.0 % (36.0-46.0); Hemoglobin 13.0 g/dL (12.2-16.2); Mean Corpuscular Hemoglobin 29.5 pg (28.0-32.0); Mean Corpuscular Volume 93.1 fL (80.0-100.0); Nucleated Red Blood Cells % 0.2 %
--- NOTE | 2025-03-30 12:35 | DVHINCON2 ---
Consultation - Surgical Date Seen: Mar 31, 2025 Referring Physician Referring Physician Attending Doctor: Hermelinda Robles MD Reason for Consultation Reason for Visit: Pleural effusion History of Present Illness History of Present Illness History of Present Illness The patient is a 40 years old female with multiple past medical history incl uding DJD, lumbar radiculopathy, and anxiety who presented to [facility] ED with complaint of chronic lower back pain exacerbation. Patient reports she has been experiencing dizziness at work, fell without injury 3 days ago, lower back pain radiating to upper back, lower legs, and generalized weakness. Patient was seen and evaluated in the ED, laboratory data shows WBC 4.9, hemoglobin 11.4, hematocrit 34.0, platelets 348, sodium 142, potassium 4.4, BUN 11, creatinine 0.57, glucose 104, calcium 8.6, protein 5.6, BNP 20.25, blood pressure 112/73, heart rate 106, temperature 98.5 F, O2 saturation 99% on room air. Thoracic point CT revealing large right pleural effusion, no acute displaced fracture. Please see medication orders section in the computer. On admit assessment, patient denied chest pain, no headache, no dizziness, no shortness of breath, no nausea, no vomiting, no fever, no chills. Patient was admitted for further evaluation and medical management. Past Medical/Surgical History Past Medical/Surgical History Past Medical History Anxiety, UTI'S, Chronic pain syndrome, Lumbar radiculopathy, Degenerative joint disease Past Surgical History Back surgery thus December 2024, Removal of hardware, Resection of intestine 2 bowel obstruction, Colostomy bag, Multiple back surgeries Family and Social History Family and Social History Family History Reviewed, noncontributory to the management of this case. Past Social History The patient lives at home, denies smoking, alcohol or illicit drugs abuse. Allergies and medications Allergies: Coded Allergies: Metoclopramide (Unverified Allergy, Unknown, 03/27/25) Prochlorperazine (Unverified Allergy, Unknown, 03/27/25) Topiramate (Verified Allergy, Unknown, BECOMES ALTERED AND SWOLLEN, 08/20/14) Home Meds Active Scripts Duloxetine Hcl (Cymbalta) 60 Mg Cap, 1 CAP PO DAILY, #30 CAP 3 Refills Prov:SUMAN FROST MD 08/06/24 Oxycodone HCl (Oxycodone Hydrochloride) 10 Mg Tab, 10 MG PO TID, #30 TAB Prov:SUMAN FROST MD 08/06/24 Alprazolam (Xanax) 1 Mg Tab, 1 TAB PO TID PRN, #30 TAB Prov:SUMAN FROST MD 08/06/24 Ciprofloxacin Hcl (Cipro) 500 Mg Tab, 1 TAB PO BID, #20 TAB Prov:SUMAN FROST MD 08/06/24 Gabapentin (Gabapentin) 300 Mg Cap, 2 CAP PO TID, #60 CAP 5 Refills Prov:SUMAN FROST MD 08/06/24 Nitrofurantoin (Macrodantin) 100 Mg Cap, 1 CAP PO BID, #10 CAP Prov:CHUNG RASCON MD 01/26/15 Reported Medications Multiple Vitamin (Multivitamins) Tab, 1 TAB PO DAILY, #90 TAB 3 Refills 03/27/25 Pantoprazole Sodium Sesquihydr (Protonix) 40 Mg Tab, 40 MG PO DAILY, #30 TAB 03/27/25 Celecoxib (Celebrex) 100 Mg Cap, 200 MG PO BID for 30 Days, MG 03/27/25 Tramadol Hcl (Tramadol Hcl) 50 Mg Tab, 50 MG PO Q6HP, MG 03/27/25 Cabergoline (Cabergoline) 0.5 Mg Tab, 0.5 MG PO QWEEKLY, TAB 03/27/25 Alprazolam (Xanax) 1 Mg Tab, 1 TAB PO BID PRN for ANXIETY, #60 TAB 03/27/25 Duloxetine Hcl (Cymbalta) 60 Mg Cap, 1 CAP PO BID, #90 CAP 3 Refills 03/27/25 Celecoxib (Celebrex) 100 Mg Cap, 100 MG PO Q12HR, MG 03/27/25 Tizanidine Hydrochloride (Zanaflex) 4 Mg Tab, 4 MG PO, TAB 08/05/24 Cephalexin Monohydrate (Cephalexin) 500 Mg Tab, 1 TAB PO TID, #30 TAB 08/05/24 Baclofen (Baclofen) 20 Mg Tab, 5 MG PO TID, TAB 08/05/24 Diphenhydramine Hcl (Banophen) 25 Mg Tab, 25 MG PO Q6HPRN, TAB 1/21/25 Acetaminophen (Tylenol) 325 Mg Tb, 650 MG PO Q6HR, TAB 08/05/24 Gabapentin (Gabapentin) 300 Mg Cap, 1 CAP PO Q8HR, #90 CAP 5 Refills 08/05/24 Celecoxib (CeleBREX CAPSULE) 100 Mg Cp, 200 MG PO BID, CAP 08/05/24 Pantoprazole Sodium Sesquihydr (Protonix) 40 Mg Tab, 40 MG PO DAILY, #30 TAB 08/05/24 Gabapentin (Gabapentin) 600 Mg Tab, 900 MG PO Q8HR for 30 Days, MG 08/04/24 Celecoxib (CeleBREX CAPSULE) 100 Mg Cp, 200 MG PO BID, CAP 08/04/24 Pantoprazole Sodium (PANTOPRAZOLE SODIUM) 40 Mg Inj, 40 MG PO DAILY, INJ 08/04/24 Cabergoline (Cabergoline) 0.5 Mg Tab, 0.5 MG PO, TAB 12/12/14 Ibuprofen (Ibuprofen) 600 Mg Tab, 1 TAB PO TID, #90 TAB 12/12/14 Carisoprodol (Soma) 250 Mg Tab, 250 MG PO, TAB 10/28/14 Review of systems Review of Systems: MSK:Normal (Patient is ambulating however she does complain of pain), NEURO:Normal (Patient is not demonstrating any focal neurologic deficits, she is ambulating but does complain of low back pain) Examination Vital signs Imaging: ORDERING PHYSICIAN: LEENA JOY NP PROCEDURE(s): MSL - LUMBAR SPINE WO CONTRAST REASON: clarification of CT findings and possible surgical planning ORDER NUMBER(s): [id number], ACCESSION NUMBER(s): [id number] PROCEDURE: MRI LUMBAR SPINE WO CONTRAST Indication: clarification of CT findings and possible surgical planning COMPARISON: 03/26/2025 TECHNIQUE: Multiplanar multisequence images of the the lumbar spine are obtained. FINDINGS: For the purpose of this examination, there are 5 lumbar vertebral body types counting from the lumbosacral junction. Anterior fixation with interbody disc spacer at L5-S1. Posterior fixation of the L5 and S1 vertebral bodies. Previous hardware within the L4 vertebral body. The L4 pars defects are better demonstrated on the previous CT. Prior hardware within the L2 vertebral body. Vertebral plasty changes at L3 with cement extrusion into the L2-3 disc space as well as slightly anterior to the L3 vertebral body. Approximately 20% loss of th e L3 vertebral body height. There is also a chronic fracture of the L3 inferior endplate/posterior cortex with nonunion. Straightening of normal lumbar spine curvature. Moderate to severe multilevel disc space narrowing and desiccation most pronounced at L2-3, L3-4 and L4-5. The conus terminates at the level of the L1 vertebral body level. L1-2: Small disc protrusion. Oclj-mj-izrrdnxw facet and flavum hypertrophy. No spinal canal stenosis mild bilateral neural foraminal stenosis. L2-3: 2 mm disc protrusion. Trvu-ya-qgsdmpbf facet and flavum hypertrophy. No spinal canal stenosis. Mild bilateral neural foraminal stenosis, righ c-mjdiuds-rrzo-left. L3-4: 3 mm disc protrusion. Moderate facet and flavum hypertrophy. No spinal canal stenosis. Enyj-bn-gsxabvxu bilateral neural foraminal stenosis. L4-5: Large disc protrusion extending 7 mm posteriorly. Bxzg-lt-bchwmgap facet and flavum hypertrophy, dhxet-iclwtnq-wcok-left with right flavum cyst measuring 6 mm. No spinal canal stenosis moderate to severe bilateral neural foraminal stenosis. L5-S1: Small disc osteophyte complex. No spinal canal stenosis. There is moderate to severe right and moderate left neural foraminal stenosis. IMPRESSION: There is a chronic fracture of the L3 vertebral body involving the inferior endplate and posterior vertebral body cortex with nonunion. No edema seen. Bilateral L4 pars defects better seen on the previous CT scan. No evidence for pars interarticularis edema on this examination Anterior and posterior fusion changes at L5-S1. Previous hardware at L2, L4. Moderate to severe neural foraminal stenosis at L4- 5 and L5-S1 as described. Balx-sd-bcoaotku neural foraminal stenosis at the remaining levels 7 mm disc protrusion at L4-5. RING PHYSICIAN: RAJ DE OLIVEIRA DO PROCEDURE(s): LS2CT - LS SPINE WO CONTRAST REASON: LOW BACK PAIN ORDER NUMBER(s): [id number], ACCESSION NUMBER(s): [id number] EXAM: CT LS SPINE WO CONTRAST INDICATION: LOW BACK PAIN TECHNIQUE: Axial images of the lumbar spine have been obtained along with coronal and sagittal reformatted images. CT scans at this facility use dose modulation, iterative reconstruction, and/or weight based dosing when appropriate to reduce radiation dose to as low as reasonably achievable. COMPARISON: CT LS SPINE WO CONTRAST on DOS: 08/05/24 FINDINGS: ANATOMY: Five lumbar-type vertebral bodies are present. The most inferior well- formed disc space will be referred to as L5-S1 for purposes of numbering in this report. Evidence of prior posterior decompression with the bilateral hemilaminectomy in the lower lumbar spine with a unipedicular right-sided fusion from L5-S1. Anterior fusion at L5-S1. Status post prior presumed kyphoplasty/vertebroplasty at L3. Prior screw placement with removal at L2. VERTEBRAL BODIES: Upon comparison with the prior examination, persistent ununited obliquely oriented fracture plane of the posterior inferior vertebral body of L3. No evidence of osseous bridging. No CT evidence of an acute endplate compression fracture when compared to prior examination. However, suspected subacute bilateral L4 pars defects status post pedicle screw removal (sagittal image 58). SPINAL CANAL: No spinal canal narrowing. INTERVERTEBRAL DISCS: Suspected broad-based posterior disc protrusion measuring 4-5 mm at L4-5 which May affect the descending L5 nerve roots suspected bilateral L5-S1 and L4-5 foraminal narrowing. FACETS: Multilevel mild to moderate facet arthropathy. OTHER: None. IMPRESSION: 1. No CT evidence of an acute endplate compression fracture. 2. Suspected subacute bilateral L4 pars defects status post pedicle screw removal. 3. Unchanged ununited obliquely oriented fracture plane of the posterior inferior vertebral body of L 4. Suspected broad-based posterior disc protrusion measuring 4-5 mm at L4-5 which May affect the descending L5 nerve roots. Vital Signs Date Time Temp Pulse Resp B/P (MAP) Pulse Ox O2 Delivery O2 Flow Rate FiO2 03/30/25 09:25 84 17 106/76 03/30/25 08:56 97.8 100 97.8 03/30/25 08:00 Room Air* 0 21 Laboratory Labs Test 03/30/25 10:15 03/29/25 06:10 03/28/25 09:22 03/27/25 12:47 Range/Units White Blood Count 7.6 4.4-10.8 10^3/uL Red Blood Count 4.40 4.0-5.20 10^6/uL Hemoglobin 13.0 # 12.2-16.2 g/dL Hematocrit 41.0 # 36.0-46.0 % Mean Corpuscular Volume 93.1 80.0-100.0 fL Mean Corpuscular Hemoglobin 29.5 28.0-32.0 pg Mean Corpuscular Hemoglobin Concent 31.7 L 32.0-36.0 g/dL Red Cell Distribution Width 16.1 H 11.8-14.3 % Platelet Count 289 140-450 10^3/uL Mean Platelet Volume 8.4 6.9-10.8 fL Neutrophils (%) (Auto) 47.2 37.0-80.0 % Lymphocytes (%) (Auto) 36.7 10.0-50.0 % Monocytes (%) (Auto) 7.0 0.0-12.0 % Eosinophils (%) (Auto) 8.1 H 0.0-7.0 % Basophils (%) (Auto) 1.0 0.0-2.0 % Neutrophils # (Auto) 3.6 1.6-8.6 10 ^3/uL Lymphocytes # (Auto) 2.8 0.4-5.4 10 ^3/uL Monocytes # (Auto) 0.5 0-1.3 10 ^3/uL Eosinophils # (Auto) 0.6 0-0.8 10 ^3/uL Basophils # (Auto) 0.1 0-0.2 10 ^3/uL Nucleated Red Blood Cells 0.2 % Sodium Level 140 136-145 mmol/L Potassium Level 4.1 3.5-5.1 mmol/L Chloride Level 106 98-107 mmol/L Carbon Dioxide Level 25 20-31 mmol/L Anion Gap 9 5-15 Blood Urea Nitrogen 11 9-23 mg/dL Creatinine 0.63 0.550-1.02 mg/dL Glomerular Filtration Rate Calc 114 >90 mL/min BUN/Creatinine Ratio 17.5 10.0-20.0 Serum Glucose 80 74-106 mg/dL Calcium Level 9.0 8.7-10.4 mg/dL Total Bilirubin < 0.2 L 0.2-1.0 mg/dL Aspartate Amino Transferase (AST) 32 13-40 U/L Alanine Aminotransferase (ALT) 33 7-40 U/L Alkaline Phosphatase 97 46-116 U/L Total Protein 5.9 5.7-8.2 g/dL Albumin 3.8 3.2-4.8 g/dL Body Fluid Source Pleural fluid Body Fluid WBC (Manual) 445 H 0-200 CUMM Body Fluid RBC (Manual) 263 0-2000 CUMM Body Fluid Mononuclear Cells 39 % Body Fluid Polymorphonuclear Cells 61 H 0-25 % Body Fluid Glucose 72 . mg/dL Body Fluid Total Protein 0.7 . g/dL Test 03/26/25 22:46 03/26/25 19:32 Range/Units B-Type Natriuretic Peptide 20.25 0-100 pg/mL C-Reactive Protein High Sensitivity 0.17 <1.0 mg/dL Examination: GENERAL:Normal, HEENT:Normal, NECK:Normal, LUNGS:Normal, CVS:Normal, ABDOMEN:Normal, MSK:Normal (Patient is ambulating in the hallways of the [facility], patient is seen standing at the nurse's station speaking to staff and, ambulating in her room independently), SKIN:Normal, NEURO:Normal (Patient is ambulating with a steady gait does not appear to be off balance when observed from afar. Patient able to get in and out of bed independently. Patient does complain of pain to the low back), :Normal (Patient is continent has no complaints) Problem List/Assessment/Plan Problems: (1) Lumbar radiculopathy Assessment and Plan There is a chronic fracture of the L3 vertebral body involving the inferior endplate and posterior vertebral body cortex with nonunion. No edema seen. Bilateral L4 pars defects better seen on the previous CT scan. No evidence for pars interarticularis edema on this examination Anterior and posterior fusion changes at L5-S1. Previous hardware at L2, L4. Moderate to severe neural foraminal stenosis at L4- 5 and L5-S1 as described. Kkkb-ei-gaobwksv neural foraminal stenosis at the remaining levels 7 mm disc protrusion at L4-5 Continue care and support per admitting team's discretion Physical therapy evaluation, treatment recommendations and safe discharge planning recommendations Effective pain management including muscle relaxers if the patient is complaining of muscle spasms Discussed treatment options with the patient, which includes her returning to see Dr. Serrano who was the last spine surgeon who did surgery on her at [facility]. Patient has a well established relationship with this surgeon and needs to return to his care. After this discussion the patient is agreeable with the plan Patient also should seek neurosurgical evaluation regarding her shunt and it is functional condition at this time, as the patient stated her fall was coupled with a loss of consciousness No barriers to a safe discharge from a spine surgery perspective Call with questions Hollie Joy [facility] Spine Surgery nurse practitioner For Dr Jacklyn ePter Patient was examined, chart reviewed, labs evaluated, and diagnostic studies and findings analyzed. Case was discussed with Dr. Ilya Peter who formulated the plan of care. This medical document was created using an electronic medical record system with [employer] dictation system. Although this document has been carefully reviewed, there might still be some phonetic and typographical errors. These areas are purely typographical due to imperfections of the software programs, and do not reflect any compromise in the patient's medical care. Plan discussed with Plan discussed with: Patient, Other (Bedside RN) Visit Coding Surgery Date of Service if different f: Mar 31, 2025 Billing Provider: LEENA JOY NP Surgery Visit Codes: 38022 - INP CONSULT <55 MIN LEENA JOY NP Mar 30, 2025 12:35
--- NOTE | 2025-03-30 14:36 | DVHPN2 ---
Progress Note - Dictate Date Seen: Mar 30, 2025 Has the PT tested + for MRSA If YES, has PT been informed?: No Medical Necessity Reason Pt with a Central, PICC or Fol: No vital signs Vital Sign Date Time Temp Pulse Resp B/P (MAP) Pulse Ox O2 Delivery O2 Flow Rate FiO2 03/30/25 13:28 85 16 106/63 03/30/25 13:00 97.3 94 97.3 03/30/25 08:00 Room Air* 0 21 Total Intake and Output 03/29/25 03/29/25 03/30/25 15:00 23:00 07:00 Intake Total 300 ml Balance 300 ml medications Current Medications Medications Dose Ordered Sig/Koby Route Start Time Stop Time Status Last Admin Dose Admin Dexamethasone Sodium Phosphate 6 mg DAILY IV 03/27/25 10:00 03/30/25 09:13 6 MG Famotidine 20 mg DAILY IV 03/27/25 10:00 03/30/25 09:13 20 MG Sodium Chloride 10 ml Q8HR IV 03/27/25 06:00 03/30/25 14:24 10 ML Acetaminophen/ Hydrocodone Bitart 1 tab Q4HP PRN PO 03/27/25 01:45 03/30/25 12:10 1 TAB Ondansetron HCl 4 mg Q4HP PRN IV 03/27/25 01:45 Docusate Sodium 100 mg BIDPRN PRN PO 03/27/25 01:45 03/29/25 21:38 100 MG Acetaminophen 650 mg Q6HP PRN PO 03/27/25 01:45 Gabapentin 300 mg TID PO 03/27/25 06:00 03/30/25 06:03 300 MG Carisoprodol 350 mg [id number] PRN PO 03/27/25 01:45 03/30/25 10:16 350 MG Nitroglycerin 0.4 mg Q5MINP PRN SL 03/27/25 02:00 Diphenhydramine HCl 25 mg Q4HP PRN IV 03/27/25 02:00 03/30/25 13:29 25 MG Hydromorphone HCl 0.5 mg Q4HPRN PRN IV 03/27/25 04:00 03/30/25 13:28 0.5 MG Furosemide 40 mg DAILY IV 03/29/25 10:00 03/30/25 09:14 40 MG Alprazolam 1 mg [id number] PRN PO 03/28/25 16:15 03/30/25 12:09 1 MG laboratory and microbiology Laboratory Tests 03/30/25 10:15 03/29/25 06:10 Test 03/29/25 06:10 Range/Units Serum Glucose 80 74-106 mg/dL Assessment/Plan right pl effusion atelectases back pain [employer] shunt patient seen and examined events low oxygen requirements on room air no acute events pl fluid results noted no specific management cont pain control IS management per primary team Plan discussed with: Patient NEHAL NG MD Mar 30, 2025 14:36
[2025-03-30 15:43] LABS: Chloride 105 mmol/L (98-107); Potassium 4.5 mmol/L (3.5-5.1); Sodium 140 mmol/L (136-145)
[2025-03-30 15:44] LABS: Anion Gap 11 (5-15); Calcium 8.7 mg/dL (8.7-10.4); Carbon Dioxide 24 mmol/L (20-31)
[2025-03-30 15:49] LABS: BUN/Creatinine Ratio 31.0 (10.0-20.0); Blood Urea Nitrogen 18 mg/dL (9-23); Glucose 131 mg/dL (74-106)
--- NOTE | 2025-03-30 16:22 | DVH ---
PROCEDURE: MRI LUMBAR SPINE WO CONTRAST Indication: clarification of CT findings and possible surgical planning COMPARISON: 03/26/2025 TECHNIQUE: Multiplanar multisequence images of the the lumbar spine are obtained. FINDINGS: For the purpose of this examination, there are 5 lumbar vertebral body types counting from the lumbos acral junction. Anterior fixation with interbody disc spacer at L5-S1. Posterior fixation of the L5 and S1 vertebral bodies. Previous hardware within the L4 vertebral body. The L4 pars defects are better demonstrated on the previous CT. Prior hardware within the L2 vertebral body. Vertebral plasty changes at L3 with cement extrusion into the L2-3 disc space as well as slightly ant erior to the L3 vertebral body. Approximately 20% loss of the L3 vertebral body height. There is also a chronic fracture of the L3 inferior endplate/posterior cortex with nonunion. Straightening of normal lumbar spine curvature. Moderate to severe multilevel disc space narrowing a nd desiccation most pronounced at L2-3, L3-4 and L4-5. The conus terminates at the level of the L1 vertebral body level. L1-2: Small disc protrusion. Egin-ro-sybcqdkj facet and flavum hypertrophy. No spinal canal stenosis mild bilateral neural foraminal stenosis. L2-3: 2 mm disc protrusion. Qbpq-tw-soyordqk facet and flavum hypertrophy. No spinal canal stenosis. Mild bilateral neural foraminal stenosis, unbtc-cxhpzru-axpw-left. L3-4: 3 mm disc protrusion. Moderate facet and flavum hypertrophy. No spinal canal stenosis. Mild- to-moderate bilateral neural foraminal stenosis. L4-5: Large disc protrusion extending 7 mm posteriorly. Vtkw-df-aapqmndp facet and flavum hypertroph y, awhbk-nxpvzvg-ithv-left with right flavum cyst measuring 6 mm. No spinal canal stenosis moderate t o severe bilateral neural foraminal stenosis. L5-S1: Small disc osteophyte complex. No spinal canal stenosis. There is moderate to severe right a nd moderate left neural foraminal stenosis. IMPRESSION: There is a chronic fracture of the L3 vertebral body involving the inferior endplate and posterior ve rtebral body cortex with nonunion. No edema seen. Bilateral L4 pars defects better seen on the previous CT scan. No evidence for pars interarticularis edema on this examination Anterior and posterior fusion changes at L5-S1. Previous hardware at L2, L4. Moderate to severe neural foraminal stenosis at L4-5 and L5-S1 as descri bed. Zhlz-si-kczbiahv neural foraminal stenosis at the remaining levels 7 mm disc protrusion at L4-5.
[2025-03-31] VITALS (7 sets, daily range): BP systolic 101–115; BP diastolic 67–82; PULSE 12–98; RESP 16–19; TEMP 97.6–98; O2SAT 96–100
[2025-03-31] MEDS: ACETAMINOPHEN 325 MG TAB PO PRN (00:07)
[2025-03-31 07:33] LABS: Anion Gap 11 (5-15); Carbon Dioxide 26 mmol/L (20-31); Chloride 104 mmol/L (98-107); Potassium 4.1 mmol/L (3.5-5.1); Sodium 141 mmol/L (136-145)
[2025-03-31 07:35] LABS: Calcium 8.8 mg/dL (8.7-10.4)
[2025-03-31 07:37] LABS: Hematocrit 32.4 % (36.0-46.0); Hemoglobin 10.7 g/dL (12.2-16.2); Mean Corpuscular Hemoglobin 30.1 pg (28.0-32.0); Mean Corpuscular Volume 90.9 fL (80.0-100.0); Nucleated Red Blood Cells % 0.1 %
[2025-03-31 07:39] LABS: BUN/Creatinine Ratio 27.6 (10.0-20.0); Blood Urea Nitrogen 16 mg/dL (9-23); Glucose 77 mg/dL (74-106)
--- NOTE | 2025-03-31 10:24 | DVHPN2 ---
Subjective The patient is seen and examined at bedside. Complain of severe back pain but walking all over the hallway in no pain Reviewed: Care Plan, H&P, Labs, Medications, Previous Orders, Radiology Changes from previous H/P or p: No Changes Eyes: No Pain, No Vision change, No Conjunctivae inflammation, No Eyelid inflammation, No Other, No Redness ENT: No Ear pain, No Ear discharge, No Nose pain, No Nose discharge, No Nose congestion, No Mouth pain, No Mouth swelling, No Throat pain, No Throat swelling, No Other Cardiovascular: No Chest Pain, No Palpitations, No Orthopnea, No Paroxysmal Noc. Dyspnea, No Edema, No Lt Headedness, No Other Respiratory: No Cough, No Dry, No Shortness of breath, No SOB with excertion, No Wheezing, No Hemoptysis, No Pleuritic Pain, No Sputum, No Other Gastrointestinal: No Nausea, No Vomiting, No Abdominal Pain, No Diarrhea, No Constipation, No Melena, No Hematochezia; Other (Colostomy bag) Genitourinary: No Dysuria, No Frequency, No Incontinence, No Hematuria, No Retention, No Other Musculoskeletal: No other, No neck pain, No shoulder pain, No arm pain; back pain; No hand pain; leg pain; No foot pain Skin: No Rash, No Lesions, No Jaundice, No Bruising, No Other Objective Vitals Vital Signs Date Time Temp Pulse Resp B/P (MAP) Pulse Ox O2 Delivery O2 Flow Rate FiO2 03/31/25 09:40 115/77 03/31/25 08:42 98.0 88 16 96 98.0 03/30/25 20:00 Room Air* 0 21 Intake/Output Intake and Output 03/31/25 07:00 Intake Total 2300 ml Balance 2300 ml Intake Oral 2300 ml # Voids 9 # Bowel Movements 2 General Appearance: Alert, Cooperative, No acute distress HEENT: Atraumatic, PERRLA, EOMI, Mucous membr. moist/pink Neck: Supple Lungs: Clear to auscultation, Normal air movement Cardiovascular: Regular rate, Normal S1, Normal S2, No murmurs, Gallops, Rubs Abdomen: Normal bowel sounds, Soft, No tenderness Neuro: Cranial nerves 3-12 NL Psych/Mental Status: Mental status NL Medications Current Medications Medications Dose Ordered Sig/Koby Route Start Time Stop Time Status Last Admin Dose Admin Dexamethasone Sodium Phosphate 6 mg DAILY IV 03/27/25 10:00 03/31/25 09:41 6 MG Famotidine 20 mg DAILY IV 03/27/25 10:00 03/30/25 09:13 20 MG Sodium Chloride 10 ml Q8HR IV 03/27/25 06:00 03/31/25 06:10 10 ML Acetaminophen/ Hydrocodone Bitart 1 tab Q4HP PRN PO 03/27/25 01:45 03/31/25 09:40 1 TAB Ondansetron HCl 4 mg Q4HP PRN IV 03/27/25 01:45 Docusate Sodium 100 mg BIDPRN PRN PO 03/27/25 01:45 03/29/25 21:38 100 MG Acetaminophen 650 mg Q6HP PRN PO 03/27/25 01:45 03/31/25 00:07 650 MG Gabapentin 300 mg TID PO 03/27/25 06:00 03/31/25 06:10 300 MG Carisoprodol 350 mg [id number] PRN PO 03/27/25 01:45 03/30/25 22:52 350 MG Nitroglycerin 0.4 mg Q5MINP PRN SL 03/27/25 02:00 Diphenhydramine HCl 25 mg Q4HP PRN IV 03/27/25 02:00 03/31/25 06:38 25 MG Hydromorphone HCl 0.5 mg Q4HPRN PRN IV 03/27/25 04:00 03/31/25 06:37 0.5 MG Furosemide 40 mg DAILY IV 03/29/25 10:00 03/31/25 09:40 40 MG Alprazolam 1 mg [id number] PRN PO 03/28/25 16:15 03/31/25 09:39 1 MG Laboratory Results Laboratory Tests 03/31/25 05:50 Chemistry Test 03/30/25 15:16 03/31/25 05:50 Calcium Level 8.7 mg/dL (8.7-10.4) 8.8 mg/dL (8.7-10.4) Labs and/or images reviewed: Labs reviewed by me Assessment/Plan Assessment/Plan Acute exacerbation of chronic low back pain Pleural effusion status post thoracocentesis Generalized weakness 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 Anxiety Continuing current management. Continuing with pain medication. Continue her home med with Xanax 1 mg p.o. b.i.d.. We will monitor her pleural effusion. Per CT scan of her spine patient had disc protrusion and missing screw in her imaging. Will consult spine surgeon to evaluate the back pain PT to get the patient out of bed and ambulate. CM consult to transfer patient to higher level of care for BUSINESS AND MARKETING TEACHER shunt repair. DW Ms. Peterson, SW service,[place] request MRI of brain with and without contrast to further evaluate of the BUSINESS AND MARKETING TEACHER shunt leaking. Will order. DW patient about the pain medication. I will d/c dilaudid and increase her norco to 10/325 one tab q 4 PRN for moderate to severe pain. She is walking the hallway without pain, her BP is soft in 100s/50s. The patient very upset. She said she want dilaudid. She usually get Zofran IV, dilaudid, together and she need it. She also has soma and xanax also. I told her if she has MRI, I also don't want her to sedate. She said she is not sedate. She request to talk to someone in chart. RN will call chart nurse to talk with her. This medical document was created using an electronic medical record system with [employer] direct computerized dictation system. Although this document has been carefully reviewed, there may still be some phonetic and typographical errors. These areas are purely typographical due to imperfections of the software programs, and do not reflect any compromise in the patient's medical care. Plan discussed with: Patient My Orders Orders - CHIDI PALACIOS MD Procedure Category Date Status Time Consultdr. 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
[2025-03-31] MEDS ORDERED: HYDROcodone-ACET 10/325MG TAB PO PRN ×2 (12:00)
--- NOTE | 2025-03-31 13:18 | DVHPN2 ---
Progress Note - Dictate Date Seen: Mar 31, 2025 Has the PT tested + for MRSA If YES, has PT been informed?: No Medical Necessity Reason Pt with a Central, PICC or Fol: No vital signs Vital Sign Date Time Temp Pulse Resp B/P (MAP) Pulse Ox O2 Delivery O2 Flow Rate FiO2 03/31/25 11:35 8 19 115/77 03/31/25 08:42 98.0 96 98.0 03/30/25 20:00 Room Air* 0 21 Total Intake and Output 03/30/25 03/30/25 03/31/25 14:59 22:59 06:59 Intake Total 1500 ml 800 ml Balance 1500 ml 800 ml medications Current Medications Medications Dose Ordered Sig/Koby Route Start Time Stop Time Status Last Admin Dose Admin Dexamethasone Sodium Phosphate 6 mg DAILY IV 03/27/25 10:00 03/31/25 09:41 6 MG Famotidine 20 mg DAILY IV 03/27/25 10:00 03/30/25 09:13 20 MG Sodium Chloride 10 ml Q8HR IV 03/27/25 06:00 03/31/25 06:10 10 ML Ondansetron HCl 4 mg Q4HP PRN IV 03/27/25 01:45 Docusate Sodium 100 mg BIDPRN PRN PO 03/27/25 01:45 03/29/25 21:38 100 MG Acetaminophen 650 mg Q6HP PRN PO 03/27/25 01:45 03/31/25 00:07 650 MG Gabapentin 300 mg TID PO 03/27/25 06:00 03/31/25 06:10 300 MG Carisoprodol 350 mg [id number] PRN PO 03/27/25 01:45 03/30/25 22:52 350 MG Nitroglycerin 0.4 mg Q5MINP PRN SL 03/27/25 02:00 Diphenhydramine HCl 25 mg Q4HP PRN IV 03/27/25 02:00 03/31/25 11:35 25 MG Furosemide 40 mg DAILY IV 03/29/25 10:00 03/31/25 09:40 40 MG Alprazolam 1 mg [id number] PRN PO 03/28/25 16:15 03/31/25 09:39 1 MG Acetaminophen/ Hydrocodone Bitart 1 tab Q4HP PRN PO 03/31/25 12:00 UNV Acetaminophen/ Hydrocodone Bitart 1 tab Q4HP PRN PO 03/31/25 12:00 UNV Acetaminophen/ Hydrocodone Bitart 1 tab Q4HP PRN PO 03/31/25 12:00 UNV laboratory and microbiology Laboratory Tests 03/31/25 05:50 Test 03/31/25 05:50 Range/Units Serum Glucose 77 74-106 mg/dL Assessment/Plan right pl effusion atelectases back pain MIND READER shunt patient seen and examined events low oxygen requirements on room air no acute events pl fluid results noted no specific management cont pain control IS management per primary team Plan discussed with: Patient NEHAL NG MD Mar 31, 2025 13:18
[2025-03-31] MEDS: HYDROcodone-ACET 10/325MG TAB PO PRN (14:18)
[2025-03-31] MEDS ORDERED: IOHEXOL 300 MG/ML 100ML BOTTLE IJ ONE (15:14)
--- NOTE | 2025-03-31 15:54 | DVH ---
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 Radiation Dose : 1. Head: CT Dose: CTDI volume is 54.53 mGy. Dose-length product is 2147.69 mGy*cm Omnipaque 300: 100 mL The dose indicators for CT are the volume Computed Tomography (CT) Dose Index (CTDIvol) and the Dose Length Product (DLP), and are measured in units of mGy and mGy-cm, respectively. These indicators are not patient dose, but values generated from the CT scanner acquisition factors. The report includes radiation exposure data for exposures received during this examination. COMPARISON: CT BRAIN on DOS: 01/03/24 FINDINGS: There is no evidence of acute intracranial hemorrhage, extra-axial collection, mass effect, midline s hift, herniation or hydrocephalus. The ventricles, sulci and cisterns are age appropriate. Ventriculoperitoneal shunt tube in place exit ing the right frontal skull. No contrast is noted in the subcutaneous tissues around the shunt. There is no contrast noted intraparenchymal in the cerebral hemispheres or ventricles. The campos-white differentiation is intact. Patchy periventricular and subcortical white matter hypoattenuation is nonspecific but may be related to small vessel ischemic disease. The visualized paranasal sinuses and mastoid air cells are clear. The surrounding soft tissues and osseous structures are unremarkable. IMPRESSION: 1. No acute intracranial abnormality. 2. Ventriculoperitoneal shunt tube in place. 3. No contrast is noted around the shunt. 4. No significant change pre /post-contrast injection. Radiation optimization: All CT scans at this facility use at least one of these dose optimization alysha hniques: automated exposure control mA and/or kV adjustment per patient size (includes targeted exam s where dose is matched to clinical indication) or iterative reconstruction.
[2025-04-01 01:00] VITALS: BP 110/70; PULSE 70; RESP 17; TEMP 97.3; O2SAT 98
[2025-04-01] MEDS: MORPHINE SULFATE INJ 2 MG/ml SYRG IV PRN (04:04)
[2025-04-01 05:00] VITALS: BP 112/72; PULSE 82; RESP 17; TEMP 97.3; O2SAT 98
[2025-04-01 08:00] VITALS: PULSE 104
[2025-04-01 09:00] VITALS: BP 115/77; PULSE 79; RESP 16; TEMP 98.2; O2SAT 98
[2025-04-01] MEDS: HYDROcodone-ACET 5/325MG TAB PO PRN (09:27)
--- NOTE | 2025-04-01 10:07 | DVHDS2 ---
Discharge Summary Date of Admission Mar 27, 2025 at 01:55 Date of Discharge: Apr 01, 2025 Admitting Diagnosis Acute exacerbation of chronic low back pain Pleural effusion status post thoracocentesis Generalized weakness S/P LITERARY AGENT shunt with ?LITERARY AGENT shunt leak to pleura space. Per film librarian, he see CSF fluid in pleural fluid. Anxiety Chronic back pain secondary to trauma status post surgery at [facility]. Labs/Diagnostic Data: Laboratory Results Test 03/31/25 05:50 03/28/25 09:22 03/27/25 12:47 03/26/25 22:46 White Blood Count 7.3 10^3/uL (4.4-10.8) Red Blood Count 3.56 10^6/uL (4.0-5.20) Hemoglobin 10.7 g/dL (12.2-16.2) Hematocrit 32.4 % (36.0-46.0) Mean Corpuscular Volume 90.9 fL (80.0-100.0) Mean Corpuscular Hemoglobin 30.1 pg (28.0-32.0) Mean Corpuscular Hemoglobin Concent 33.1 g/dL (32.0-36.0) Red Cell Distribution Width 15.7 % (11.8-14.3) Platelet Count 393 10^3/uL (140-450) Mean Platelet Volume 7.8 fL (6.9-10.8) Neutrophils (%) (Auto) 51.3 % (37.0-80.0) Lymphocytes (%) (Auto) 39.0 % (10.0-50.0) Monocytes (%) (Auto) 5.6 % (0.0-12.0) Eosinophils (%) (Auto) 3.1 % (0.0-7.0) Basophils (%) (Auto) 1.0 % (0.0-2.0) Neutrophils # (Auto) 3.7 10 ^3/uL (1.6-8.6) Lymphocytes # (Auto) 2.8 10 ^3/uL (0.4-5.4) Monocytes # (Auto) 0.4 10 ^3/uL (0-1.3) Eosinophils # (Auto) 0.2 10 ^3/uL (0-0.8) Basophils # (Auto) 0.1 10 ^3/uL (0-0.2) Nucleated Red Blood Cells 0.1 % Sodium Level 141 mmol/L (136-145) Potassium Level 4.1 mmol/L (3.5-5.1) Chloride Level 104 mmol/L (98-107) Carbon Dioxide Level 26 mmol/L (20-31) Anion Gap 11 (5-15) Blood Urea Nitrogen 16 mg/dL (9-23) Creatinine 0.58 mg/dL (0.550-1.02) Glomerular Filtration Rate Calc 117 mL/min (>90) BUN/Creatinine Ratio 27.6 (10.0-20.0) Serum Glucose 77 mg/dL (74-106) Calcium Level 8.8 mg/dL (8.7-10.4) Total Bilirubin < 0.2 mg/dL (0.2-1.0) Aspartate Amino Transferase (AST) 32 U/L (13-40) Alanine Aminotransferase (ALT) 33 U/L (7-40) Alkaline Phosphatase 97 U/L (46-116) Total Protein 5.9 g/dL (5.7-8.2) Albumin 3.8 g/dL (3.2-4.8) Body Fluid Source Pleural fluid Body Fluid WBC (Manual) 445 CUMM (0-200) Body Fluid RBC (Manual) 263 CUMM (0-2000) Body Fluid Mononuclear Cells 39 % Body Fluid Polymorphonuclear Cells 61 % (0-25) Body Fluid Glucose 72 mg/dL (.) Body Fluid Total Protein 0.7 g/dL (.) B-Type Natriuretic Peptide 20.25 pg/mL (0-100) Test 03/26/25 19:32 C-Reactive Protein High Sensitivity 0.17 mg/dL (<1.0) Other Laboratory Tests 03/31/25 05:50 Brief Hx & Hospital Course: This is a 40 years old female with past medical history of degenerative joint disease, lumbar radiculopathy, history of spine surgery due to trauma, anxiety, came to emergency department with chief complaint of chronic lower back pain exacerbation. Patient also experienced dizziness at work. Patient fell without injury three day prior to this admission and her lower back pain become severe. She said her leg is weak. The patient was admitted. The patient thoracic CT showed large right pleural effusion, no acute displaced fracture. The patient subsequently has the pleural effusion drained by Dr. Lindo and, pulmonologists. Per Dr. Lindo, he sees CSF fluid in the pleural fluid. The patient does have history of brain injury and required LITERARY AGENT shunt. The patient at 1st was supposed to transfer to [facility] for evaluate of LITERARY AGENT shunt leak however CT scan of the brain with and without contrast showed: No acute intracranial abnormality. Ventriculoperitoneal shunt tube in place. No contrast is noted around the shunt. No significant change pre /post-contrast injection. So the patient did not have a leak and the transfer was canceled. Patient also adamant about severe back pain. She was on Soma, Dilaudid, Lennon, and Xanax. The patient has stated is is not taking her pain away. PT was consulted however the patient is able to walk all over the hallway about 400-500 feet without any problem. Started all physical therapy required for her. MRI of the lumbar was done showed:There is a chronic fracture of the L3 vertebral body involving the inferior endplate and posterior vertebral body cortex with nonunion. No edema seen.Bilateral L4 pars defects better seen on the previous CT scan. No evidence for pars interarticularis edema on this examination.Anterior and posterior fusion changes at L5-S1. Previous hardware at L2, L4. Moderate to severe neural foraminal stenosis at L4- 5 and L5-S1 as described. [id number] neural foraminal stenosis at the remaining levels.7 mm disc protrusion at L4-5. Spine surgeon also was consulted. No further intervention. Recommend the patient to follow up with her spine surgeon in [facility] for further workup treatment for her back pain. I am discharge the patient home today. Advised the patient to follow up with primary care physician 1-2 weeks. Follow up with her spine surgeon and neurosurgeon [facility] per schedule. Activity as tolerated. Diet per home diet. Physical exam: HEENT: Normocephalic atraumatic pupils equal react to light and accommodation. Extraocular muscles intact, conjunctiva pink, oropharynx moist, no thrush, no exudate. Lymphatic: No lymphadenopathy Cardiovascular exam: S1, S2 was heard. No murmurs, rubs, gallops Lung: Clear on auscultation bilaterally, no wheeze, rale, rhonchi. GI: Abdominal soft, nondistended, nontenderness, positive bowel sounds. Extremity: No crepitus, cyanosis, edema. Pedal pulses present bilateral. Full range of motion. Skin: Normal turgor, no rash. Psych: Alert, oriented x3. Neurology: No focal deficits, cranial nerve II to XII grossly intact. This medical document was created using an electronic medical record system with [employer] direct computerized dictation system. Although this document has been carefully reviewed, there may still be some phonetic and typographical errors. These areas are purely typographical due to imperfections of the software programs, and do not reflect any compromise in the patient's medical care. Condition at Discharge: Stable Final Diagnosis/Problems List Acute exacerbation of chronic low back pain Pleural effusion status post thoracocentesis Generalized weakness S/P LITERARY AGENT shunt with ?LITERARY AGENT shunt leak to pleura space. Per film librarian, he see CSF fluid in pleural fluid. Anxiety Chronic back pain secondary to trauma status post surgery at [facility]. Discharge Disposition: Home Discharge Instruct/Medications Diet: Regular Activity: No Restrictions, As Tolerated Follow Up/Referral: pcp 1-2 weeks neurosurgeon per schedule Medications: Resume home meds Scheduled Acetaminophen (Tylenol), 650 MG PO Q6HR, (Reported) Baclofen (Baclofen), 5 MG PO TID, (Reported) Cabergoline (Cabergoline), 0.5 MG PO QWEEKLY, (Reported) Celecoxib (CeleBREX CAPSULE), 200 MG PO BID, (Reported) Celecoxib (CeleBREX CAPSULE), 200 MG PO BID, (Reported) Celecoxib (Celebrex), 100 MG PO Q12HR, (Reported) Celecoxib (Celebrex), 200 MG PO BID, (Reported) Cephalexin Monohydrate (Cephalexin), 1 TAB PO TID, (Reported) Ciprofloxacin Hcl (Cipro), 1 TAB PO BID Diphenhydramine Hcl (Banophen), 25 MG PO Q6HPRN, (Reported) Duloxetine Hcl (Cymbalta), 1 CAP PO DAILY Duloxetine Hcl (Cymbalta), 1 CAP PO BID, (Reported) Gabapentin (Gabapentin), 900 MG PO Q8HR, (Reported) Gabapentin (Gabapentin), 1 CAP PO Q8HR, (Reported) Gabapentin (Gabapentin), 2 CAP PO TID Ibuprofen (Ibuprofen), 1 TAB PO TID, (Reported) Multiple Vitamin (Multivitamins), 1 TAB PO DAILY, (Reported) Nitrofurantoin (Macrodantin), 1 CAP PO BID Oxycodone HCl (Oxycodone Hydrochloride), 10 MG PO TID Pantoprazole Sodium (Pantoprazole Sodium), 40 MG PO DAILY, (Reported) Pantoprazole Sodium Sesquihydr (Protonix), 40 MG PO DAILY, (Reported) Pantoprazole Sodium Sesquihydr (Protonix), 40 MG PO DAILY, (Reported) Tramadol Hcl (Tramadol Hcl), 50 MG PO Q6HP, (Reported) Scheduled PRN Alprazolam (Xanax), 1 TAB PO TID PRN Alprazolam (Xanax), 1 TAB PO BID PRN for ANXIETY Carisoprodol (Soma), 250 MG PO DAILY PRN Oxycodone W/ Acetaminophen (Percocet 5/325MG), 1 TAB PO TID PRN Miscellaneous Medications Cabergoline (Cabergoline), 0.5 MG PO, (Reported) Tizanidine Hydrochloride (Zanaflex), 4 MG PO, (Reported) Discharge Statement: "Patient was advised to return to the ER or call 911 if any headaches, dizziness, shortness of breath, chest pain, abdominal pain, bleeding, fevers, or worsening of medical condition. Patient was counseled about treatment plan, medications, possible side effects, patientverbalized understanding. All questions were answered to the best of my ability. This discharge took greater then 30 minutes in planning, reviewing documentation, counseling the patient, and discussing with other team members." ASSESSMENT ASSESSMENT Assessment pleural effusion Date of Service: Apr 01, 2025 Billing Provider: CHIDI PALACIOS MD Common Visit Codes: [id number] DISCH DAY >30min CHIDI PALACIOS MD Apr 01, 2025 10:07
[2025-04-01] MEDS ORDERED: CARI250T PO (11:08)
[2025-04-01] MEDS ORDERED: GABA-1250 PO (11:08)
[2025-04-01] MEDS ORDERED: ALPR1TAB2 PO (11:08)
[2025-04-01] MEDS ORDERED: PERCOT PO (11:08)
[2025-04-01 12:04] VITALS: BP 104/59; TEMP 36.8
[2025-04-01 12:35] VITALS: BP 104/59; PULSE 87; RESP 17; TEMP 98; O2SAT 97
== END 2025-04-01 13:46 | disposition home or self-care (01) | DRG 92 ==
LOC: ER 19:04 → EDBD 19:04 → OVERFLOW 03-27 01:55 → TELE-WESTW 03-27 13:10 → TELE-EAST 03-30 01:33
PROVIDERS: ADMIT Internal Medicine; ATTEND Internal Medicine
PROC: 0W993ZX Drainage of Right Pleural Cavity, Percutaneous Approach, Diagnostic (ICD-10-PCS; principal; 2025-03-27)
DX: T85.890A Other specified complication of nervous system prosthetic devices, implants and grafts, initial encounter (principal); J90 Pleural effusion, not elsewhere classified; J98.11 Atelectasis; M51.16 Intervertebral disc disorders with radiculopathy, lumbar region; M48.07 Spinal stenosis, lumbosacral region; F41.0 Panic disorder [episodic paroxysmal anxiety]; G89.21 Chronic pain due to trauma; Z98.2 Presence of cerebrospinal fluid drainage device; Z93.3 Colostomy status; Z79.899 Other long term (current) drug therapy; Z88.5 Allergy status to narcotic agent; Z79.2 Long term (current) use of antibiotics; Z79.1 Long term (current) use of non-steroidal anti-inflammatories (NSAID); Z87.820 Personal history of traumatic brain injury; Z82.62 Family history of osteoporosis; Z82.5 Family history of asthma and other chronic lower respiratory diseases; Z82.49 Family history of ischemic heart disease and other diseases of the circulatory system; Z82.3 Family history of stroke; Z98.1 Arthrodesis status; Z82.0 Family history of epilepsy and other diseases of the nervous system; Z80.8 Family history of malignant neoplasm of other organs or systems; Z80.41 Family history of malignant neoplasm of ovary; Z80.3 Family history of malignant neoplasm of breast; Z81.8 Family history of other mental and behavioral disorders; Z80.1 Family history of malignant neoplasm of trachea, bronchus and lung; Z80.0 Family history of malignant neoplasm of digestive organs; Z83.3 Family history of diabetes mellitus; Y84.8 Other medical procedures as the cause of abnormal reaction of the patient, or of later complication, without mention of misadventure at the time of the procedure; Y92.89 Other specified places as the place of occurrence of the external cause
CPT/HCPCS: 32555; 36415; 70470; 71045; 72128; 72131; 72148; 80048; 80053; 83880; 85025; 86141; 89051; 97163; G0378; J1100; J3490

== ENCOUNTER 2025-06-18 18:36 | Inpatient (IN) | payer MEDICARE, MEDICAID ==
[~2025-06-18] VITALS: Ht 171.4 cm; Wt 75.0 kg
[~2025-06-18 18:36] MED LIST changes: +CELE100C82 PO; +MULT-1018 PO; +PERCOT PO; +TRAM50TA2 PO
[2025-06-18 19:30] VITALS: PULSE 69; RESP 12; O2SAT 100
--- NOTE | 2025-06-18 19:35 | ED.PDOC ---
History of present illness HPI Comments 40 y/o F, BIBA, with PMHx of DM, UTI's and anxiety presents to the ED for CC of hypoglycemia. EMS reports, patient is coming from work where she was found in her car unconscious. Patient states, she has PMHx of frequent hypoglycemic episodes and usually passes out when her blood sugar is too low. Patient end orses eating today (06/18/25) however, in the field patient's blood sugar read a 65. Patient comments, difficulty managing her blood sugar, noting frequent fluctuations despite her usual regimen. Chief Complaint: Hypoglycemia Time Seen by MD: 19:30 Primary Care Provider: UNKNOWN Allergies: Coded Allergies: Metoclopramide (Unverified Allergy, Unknown, 03/27/25) Prochlorperazine (Unverified Allergy, Unknown, 03/27/25) Topiramate (Verified Allergy, Unknown, BECOMES ALTERED AND SWOLLEN, 08/20/14) Home Meds Active Scripts Oxycodone W/ Acetaminophen (Percocet 5/325MG) 1 Tab Tb, 1 TAB PO TID PRN, #20 TAB Prov:CHIDI PALACIOS MD 04/01/25 Alprazolam (Xanax) 1 Mg Tab, 1 TAB PO BID PRN for ANXIETY, #30 TAB Prov:CHIDI PALACIOS MD 04/01/25 Gabapentin (Gabapentin) 300 Mg Cap, 2 CAP PO TID, #60 CAP 0 Refills Prov:CHIDI PALACIOS MD 04/01/25 Carisoprodol (Soma) 250 Mg Tab, 250 MG PO DAILY PRN, #30 TAB Prov:CHIDI PALACIOS MD 04/01/25 Duloxetine Hcl (Cymbalta) 60 Mg Cap, 1 CAP PO DAILY, #30 CAP 3 Refills Prov:SUMAN FROST MD 08/06/24 Oxycodone HCl (Oxycodone Hydrochloride) 10 Mg Tab, 10 MG PO TID, #30 TAB Prov:SUMAN FROST MD 08/06/24 Alprazolam (Xanax) 1 Mg Tab, 1 TAB PO TID PRN, #30 TAB Prov:SUMAN FROST MD 08/06/24 Ciprofloxacin Hcl (Cipro) 500 Mg Tab, 1 TAB PO BID, #20 TAB Prov:SUMAN FROST MD 08/06/24 Nitrofurantoin (Macrodantin) 100 Mg Cap, 1 CAP PO BID, #10 CAP Prov:CHUNG RASCON MD 01/26/15 Reported Medications Multiple Vitamin (Multivitamins) Tab, 1 TAB PO DAILY, #90 TAB 3 Refills 03/27/25 Pantoprazole Sodium Sesquihydr (Protonix) 40 Mg Tab, 40 MG PO DAILY, #30 TAB 03/27/25 Celecoxib (Celebrex) 100 Mg Cap, 200 MG PO BID for 30 Days, MG 03/27/25 Tramadol Hcl (Tramadol Hcl) 50 Mg Tab, 50 MG PO Q6HP, MG 03/27/25 Cabergoline (Cabergoline) 0.5 Mg Tab, 0.5 MG PO QWEEKLY, TAB 03/27/25 Duloxetine Hcl (Cymbalta) 60 Mg Cap, 1 CAP PO BID, #90 CAP 3 Refills 03/27/25 Celecoxib (Celebrex) 100 Mg Cap, 100 MG PO Q12HR, MG 03/27/25 Tizanidine Hydrochloride (Zanaflex) 4 Mg Tab, 4 MG PO, TAB 08/05/24 Cephalexin Monohydrate (Cephalexin) 500 Mg Tab, 1 TAB PO TID, #30 TAB 08/05/24 Baclofen (Baclofen) 20 Mg Tab, 5 MG PO TID, TAB 08/05/24 Diphenhydramine Hcl (Banophen) 25 Mg Tab, 25 MG PO Q6HPRN, TAB 08/05/24 Acetaminophen (Tylenol) 325 Mg Tb, 650 MG PO Q6HR, TAB 08/05/24 Gabapentin (Gabapentin) 300 Mg Cap, 1 CAP PO Q8HR, #90 CAP 5 Refills 08/05/24 Celecoxib (CeleBREX CAPSULE) 100 Mg Cp, 200 MG PO BID, CAP 08/05/24 Pantoprazole Sodium Sesquihydr (Protonix) 40 Mg Tab, 40 MG PO DAILY, #30 TAB 08/05/24 Gabapentin (Gabapentin) 600 Mg Tab, 900 MG PO Q8HR for 30 Days, MG 08/04/24 Celecoxib (CeleBREX CAPSULE) 100 Mg Cp, 200 MG PO BID, CAP 08/04/24 Pantoprazole Sodium (PANTOPRAZOLE SODIUM) 40 Mg Inj, 40 MG PO DAILY, INJ 08/04/24 Cabergoline (Cabergoline) 0.5 Mg Tab, 0.5 MG PO, TAB 12/12/14 Ibuprofen (Ibuprofen) 600 Mg Tab, 1 TAB PO TID, #90 TAB 12/12/14 Mode of Arrival: EMS Past Medical History PAST MEDICAL HISTORY: Anxiety, DM, UTI'S 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 History: Denies all 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 Hx Family History Family History: No family hx of DM, No family hx of Heart carlos, No family hx of HTN, No family hx of Stroke Social History Smoker: Other Alcohol: Denies ETOH Use Drugs: Denies Drug Use Lives In: Home Constitutional: denies: chills, diaphoresis, fatigue, fever, malaise, sweats, weakness, others EENTM: denies: blurred vision, double vision, ear bleeding, ear discharge, ear drainage, ear pain, ear ringing, eye pain, eye redness, hearing loss, mouth pain, mouth swelling, nasal discharge, nose bleeding, nose congestion, nose pain, photophobia, tearing, throat pain, throat swelling, voice changes, others Respiratory: denies: cough, hemoptysis, orthopnea, SOB at rest, shortness of breath, SOB with excertion, stridor, wheezing, others Cardiovascular: denies: chest pain, dizzy spells, diaphoresis, Dyspnea on exertion, edema, irregular heart beat, left arm pain, lightheadedness, palpitations, PND, syncope, others Gastrointestinal: denies: abdomen distended, abdominal pain, blood streaked bowels, constipated, diarrhea, dysphagia, difficulty swallowing, hematemesis, melena, nausea, poor appetite, poor fluid intake, rectal bleeding, rectal pain, vomiting, others Genitourinary: denies: abnormal vagina bleeding, burning, dyspareunia, dysuria, flank pain, frequency, hematuria, incontinence, pain, , vagina discharge, urgency, others Neurological: denies: dizziness, fainting, headache, left sided numbness, left sided weakness, numbness, paresthesia, pre-existing deficit, right sided numbness, right sided weakness, seizure, speech problems, tingling, tremors, weakness, others Musculoskeletal: denies: back pain, gout, joint pain, joint swelling, muscle pain, muscle stiffness, neck pain, others Integumetry: denies: bruises, change in color, change in hair/nails, dryness, laceration, lesions, lumps, rash, wounds, others Allergic/Immunocompromised: denies: Difficulty Healing, Frequent Infections, Hives, Itching, others Hematologic/Lymphatic: denies: anemia, blood clots, easy bleeding, easy bruising, swollen glands, others Endocrine: denies: excessive hunger, excessive sweating, excessive thirst, excessive urination, flushing, intolerance to cold, intolerance to heat, unexpl ained weight gain, unexplained weight loss, others Psychiatric: denies: anxiety, bipolar disorder, depression, hopeless, panic disorder, schizophrenia, sleepless, suicidal, others All Other Systems: Reviewed and Negative Physical Exam General Appearance: No Apparent Distress, Normal HEENT: Normal ENT Inspection, Pharynx Normal Neck: Full Range of Motion, Non-Tender, Normal, Normal Inspection Respiratory: Chest Non-Tender, Lungs Clear, No Accessory Muscle Use, No Respiratory Distress, Normal Breath Sounds Cardiovascular: No Edema, No Murmur, No Gallop, Normal Peripheral Pulses, Regular Rate/Rhythm Breast Exam: Deferred Gastrointestinal: No Organomegaly, Non Tender, No Pulsatile Mass, Normal Bowel Sounds, Soft Genitalia: Deferred Pelvic: Deferred Rectal: Deferred Extremities: No calf tenderness, Normal capillary refill, Normal inspection, Normal range of motion, Non-tender, No pedal edema Musculoskeletal : Apperance: Normal Neurologic: Alert, tester rocket engine II-XII nml as Tested, No Motor Deficits, Normal Affect, Normal Mood, No Sensory Deficits Cerebellar Function: Normal Reflexes: Normal Skin: Dry, Normal Color, Warm Lymphatic: No Adenopathy Was a procedure done? Was a procedure done?: No Differential Diagnosis (DM) Differential Diagnosis: Dehydration, Hypoglycemia X-Ray, Labs, Meds, VS Vital Signs Date Time Temp Pulse Resp B/P (MAP) Pulse Ox O2 Delivery O2 Flow Rate FiO2 06/18/25 22:30 80 14 110/56 (74) 100 06/18/25 22:00 77 8 75/41 06/18/25 19:30 97.8 69 12 105/63 (77) 100 97.8 06/18/25 19:30 69 12 100 Room Air* 0 21 06/18/25 18:52 98.2 76 17 134/85 98 98.2 Lab Test 06/18/25 23:20 06/18/25 19:45 06/18/25 19:44 Range/Units Urine Color Yellow Yellow Urine Clarity Turbid H Clear Urine pH 5.5 5.0-9.0 Urine Specific [place] > 1.050 H 1.001-1.035 Urine Protein 1+ H Negative Urine Ketones Trace Negative Urine Blood 1+ H Negative /uL Urine Nitrite Negative Negative Urine Bilirubin Negative Negative Urine Urobilinogen 2 H Negative mg/dL Urine Leukocyte Esterase 2+ Negative /uL Urine RBC 6 0 - 4 /hpf Urine Microscopic WBC 13 H 0-5 /HPF Urine Squamous Epithelial Cells Mod <5 /hpf Urine Bacteria Few H None Seen /hpf Urine Mucus Few None Seen Urine Glucose Normal Normal mg/dL Urine Opiates Screen Pending Urine Fentanyl Screen Pending Urine Barbiturates Screen Pending Urine Phencyclidine Screen Pending Urine Amphetamines Screen Pending Urine Benzodiazepines Screen Pending Urine Cocaine Screen Pending Urine Cannabinoids Screen Pending Lactic Acid Level 1.9 0.4-2.0 mmol/L White Blood Count 15.0 H 4.4-10.8 10^3/uL Red Blood Count 3.91 L 4.0-5.20 10^6/uL Hemoglobin 11.5 L 12.2-16.2 g/dL Hematocrit 36.8 36.0-46.0 % Mean Corpuscular Volume 94.0 80.0-100.0 fL Mean Corpuscular Hemoglobin 29.4 28.0-32.0 pg Mean Corpuscular Hemoglobin Concent 31.3 L 32.0-36.0 g/dL Red Cell Distribution Width 17.2 H 11.8-14.3 % Platelet Count 353 140-450 10^3/uL Mean Platelet Volume 7.4 6.9-10.8 fL Neutrophils (%) (Auto) 75.8 37.0-80.0 % Lymphocytes (%) (Auto) 16.1 10.0-50.0 % Monocytes (%) (Auto) 5.3 0.0-12.0 % Eosinophils (%) (Auto) 2.2 0.0-7.0 % Basophils (%) (Auto) 0.6 0.0-2.0 % Neutrophils # (Auto) 11.3 H 1.6-8.6 10 ^3/uL Lymphocytes # (Auto) 2.4 0.4-5.4 10 ^3/uL Monocytes # (Auto) 0.8 0-1.3 10 ^3/uL Eosinophils # (Auto) 0.3 0-0.8 10 ^3/uL Basophils # (Auto) 0.1 0-0.2 10 ^3/uL Nucleated Red Blood Cells 0.1 % Sodium Level 144 136-145 mmol/L Potassium Level 4.1 3.5-5.1 mmol/L Chloride Level 109 H 98-107 mmol/L Carbon Dioxide Level 23 20-31 mmol/L Anion Gap 12 5-15 Blood Urea Nitrogen 25 H 9-23 mg/dL Creatinine 0.73 0.550-1.02 mg/dL Glomerular Filtration Rate Calc 106 >90 mL/min BUN/Creatinine Ratio 34.2 H 10.0-20.0 Serum Glucose 98 74-106 mg/dL Calcium Level 9.2 8.7-10.4 mg/dL Total Bilirubin < 0.2 L 0.2-1.0 mg/dL Aspartate Amino Transferase (AST) 38 13-40 U/L Alanine Aminotransferase (ALT) 25 7-40 U/L Alkaline Phosphatase 105 46-116 U/L Total Protein 6.7 5.7-8.2 g/dL Albumin 4.3 3.2-4.8 g/dL Current Medications Medications (Trade) Dose Ordered Sig/Koby Route Start Time Stop Time Status Last Admin Diphenhydramine HCl (Benadryl Injection) 25 mg ONCE ONCE IV 06/18/25 22:00 06/18/25 22:01 DC 06/18/25 22:34 X-Ray, Labs, Meds, VS Comment There are concerns of possible substance abuse Patient continues to try and go to the bathroom taking her backpack with her Has a lethargic looked to her eyes half open Patient's blood pressure continues to fluctuate and dropped down to 70/40 Patient adamant that her blood pressure is normally low and continues to request morphine Patient will be admitted for metabolic encephalopathy Concerns of possible medication overdose, urine drug screen is pending Patient given IV bolus Time of 1ST Reevaluation: 20:00 Reevaluation 1ST: Unchanged Patient Education/Counseling: Diagnosis, Treatment Family Education/Counseling: No Family Present SEPSIS Sepsis Screen Date sepsis recognized/suspect: Jun 18, 2025 Time Sepsis recognized/suspect: 1857 Recent Procedure: No On Antibiotic Therapy: No Respiratory Rate >20: No Heart Rate >90: No Temp<36 C (96.8 F) or >38.3 C: No SBP <90 or MAP <65 mmHG: No New Acute Mental Status Change: No Is the patient on CPAP, BIPAP,: No Physician Orders Drug Screen (06/18/25 19:29) Head Without Contrast (06/18/25 19:29) Chest Xray 1 View (06/18/25 19:29) Vital Signs Date Time Temp Pulse Resp B/P (MAP) Pulse Ox O2 Delivery O2 Flow Rate FiO2 06/18/25 22:30 80 14 110/56 (74) 100 06/18/25 22:00 77 8 75/41 06/18/25 19:30 97.8 69 12 105/63 (77) 100 97.8 06/18/25 19:30 69 12 100 Room Air* 0 21 06/18/25 18:52 98.2 76 17 134/85 98 98.2 Laboratory Tests Test 06/18/25 19:44 06/18/25 19:45 White Blood Count 15.0 10^3/uL (4.4-10.8) H Lactic Acid Level 1.9 mmol/L (0.4-2.0) Medications Medications Dose Ordered Sig/Koby Route Start Time Stop Time Status Last Admin Dose Admin Diphenhydramine HCl 25 mg ONCE ONCE IV 06/18/25 22:00 06/18/25 22:01 DC 06/18/25 22:34 Departure 1 Departure Time of Disposition: 01:22 Impression: Primary Impression: TOXIC ENCEPHALOPATHY Additional Impressions: OTHER ALTERATION OF CONSCIOUSNESS UTI (urinary tract infection) Qualified Codes: N30.01 - Acute cystitis with hematuria Disposition: ADMITTED INPATIENT Condition: Stable Critical Care Note Critical Care Time?: No Stability Stability form required: No Heart Score Heart Score: Heart Score Response (Comments) Value History N/A 0 EKG N/A 0 Age N/A 0 Risk Factors N/A 0 Troponin N/A 0 Total 0 I personally scribed for EMMANUEL BELTRAN CLINICAL GENETICIST ([email or web address]) on 06/18/25 at 19:35. Electronically submitted by Rachelle Coronel ([email or web address]). I personally scribed for EMMANUEL BELTRAN CLINICAL GENETICIST ([email or web address]) on 06/18/25 at 19:39. Electronically submitted by Rachelle Coronel ([email or web address]). EMMANUEL BELTRAN [facility] Jun 18, 2025 19:35
[2025-06-18 20:03] LABS: Hematocrit 36.8 % (36.0-46.0); Hemoglobin 11.5 g/dL (12.2-16.2); Mean Corpuscular Hemoglobin 29.4 pg (28.0-32.0); Mean Corpuscular Volume 94.0 fL (80.0-100.0); Nucleated Red Blood Cells % 0.1 %
[2025-06-18 20:23] LABS: Alanine Aminotransferase 25 U/L (7-40); Albumin 4.3 g/dL (3.2-4.8); Alkaline Phosphatase 105 U/L (46-116); Anion Gap 12 (5-15); BUN/Creatinine Ratio 34.2 (10.0-20.0); Calcium 9.2 mg/dL (8.7-10.4); Carbon Dioxide 23 mmol/L (20-31); Glucose 98 mg/dL (74-106); Potassium 4.1 mmol/L (3.5-5.1); Sodium 144 mmol/L (136-145); Total Protein 6.7 g/dL (5.7-8.2)
[2025-06-18 21:17] LABS: Bilirubin, Total < 0.2 mg/dL (0.2-1.0); Blood Urea Nitrogen 25 mg/dL (9-23); Chloride 109 mmol/L (98-107)
--- NOTE | 2025-06-18 21:42 | DVH ---
EXAM: XY CHEST XRAY 1 VIEW HISTORY: syncope TECHNIQUE: 1 view of the chest COMPARISON: XY CHEST PORTABLE on DOS: 03/26/25 FINDINGS/IMPRESSION: LUNGS: No pleural effusion, consolidation, or pneumothorax. MEDIASTINUM: Unremarkable. BONES: No acute osseous abnormality. OTHER: Right anterior chest port-A-Cath. Right-sided chest shunt catheter extending along the right lower neck and projecting over the mid aspect of the chest.
--- NOTE | 2025-06-18 21:43 | DVH ---
CLINICAL HISTORY: syncope TECHNIQUE: Helical scanning was performed of the head from the skull base to the vertex. Multiplanar reconstructions were performed. This exam was performed according to our departmental dose optimization program. Up-to-date CT equipment and radiation dose reduction techniques are utilized as appropriate. WID: COMPARISON: CT HEAD W WO CONTRAST on DOS: 03/31/25, CT BRAIN on DOS: 01/03/24 FINDINGS: There is no acute intracranial hemorrhage, CT evidence of acute ischemic changes, mass effect, midline shift, or extra-axial fluid collection. There is a right frontal approach ventriculoperitoneal shunt which terminates in the left anterior horn of the lateral ventricle. The imaged intraorbital structures are unremarkable The imaged paranasal sinuses are clear. The mastoid air cells are clear. The calvarium is intact. IMPRESSION: NO ACUTE INTRACRANIAL FINDINGS Right frontal approach ventriculoperitoneal shunt unchanged in position when compared to prior without evidence of hydrocephalus.
[2025-06-18] MEDS: MORPHINE SULFATE 4 MG/ML SYR/VIAL IV ONE (22:00)
[2025-06-18] MEDS: HYDROcodone-ACET 5/325MG TAB PO ONE (22:30)
[2025-06-18] MEDS: diphenhydrAMINE HCL 50 MG/1 ML VL IV ONE (22:34)
[2025-06-18 23:54] LABS: Urine Protein, UAD 1+ (Negative)
[2025-06-19 01:33] LABS: Amphetamine Screen, Urine NEGATIVE (NEGATIVE); Barbiturate Scree,Urine NEGATIVE (NEGATIVE); Benzodiazephine Screen, Urine POSITIVE (NEGATIVE); Cannabinoid Screen, Urine NEGATIVE (NEGATIVE); Cocaine Screen, Urine NEGATIVE (NEGATIVE); Opiate Scree,Urine POSITIVE (NEGATIVE); Phencyclidine Screen, Urine NEGATIVE (NEGATIVE)
[2025-06-19] MEDS ORDERED: DOCUSATE SOD 100 MG CAP PO PRN (02:00)
[2025-06-19] MEDS ORDERED: DEXTROSE (50%) 50ML SYRG IV PRN (02:00)
[2025-06-19] MEDS ORDERED: ONDANSETRON HCL 4 MG/2 ML VIAL IV PRN (02:00)
--- NOTE | 2025-06-19 02:17 | DVHHP2 ---
History of Present Illness Reason for Visit: Toxic encephalopathy History of Present Illness The patient is a 40-year-old female with past medical history of anxiety, diabetes mellitus, and UTIs who presented to [facility] ED with complaint of hypoglycemia. As reported by EMS, patient was found in her car unconscious with initial blood sugar 65 mg/dL in the field and was given D50 EN route to our facility ED. Patient reports difficulty managing her blood sugar, noting frequent fluctuations despite her usual regimen. Patient was seen and evaluated in the ED, laboratory data shows WBC 15.0, hemoglobin 11.5, hematocrit 36.8, platelets 353, sodium 144, potassium 4.1, BUN 25, creatinine 0.73, glucose 98, GFR 106, calcium 9.2, lactic acid 1.9, blood pressure 110/56, heart rate 80, temperature 97.8 F, O2 saturation 99% on room air. Urinalysis positive for urinary tract infection. Head CT showed no acute intracranial findings. Chest x- ray show no consolidation, pleural effusion or pneumothorax; right anterior chest Port-A-Cath, right-sided chest shunt catheter extending along the right lower neck and projecting over the mid aspect of the chest. Patient was started on IV antibiotic regimen Rocephin, please see medication orders section in the computer. On my assessment, patient denied chest pain, no headache, dizziness, diaphoresis, shortness of breaths, no diarrhea, nausea, vomiting, fever, no chills. Patient was admitted for further evaluation and medical management. Past Medical History Anxiety, DM, UTI'S Past Surgical History Abdominal surgery Family History Reviewed, noncontributory to the management of this case. Past Social History The patient lives at home, denies smoking, alcohol or illicit drugs abuse. Review of Systems Constitutional: Yes: Other (Agitated); No: Fever, Chills, Sweats, Weakness, Malaise Eyes: No: Pain, Vision change, Conjunctivae inflammation, Eyelid inflammation, Other, Redness ENT: No: Ear pain, Ear discharge, Nose pain, Nose discharge, Nose congestion, Mouth pain, Mouth swelling, Throat pain, Throat swelling, Other Respiratory: No: Cough, Dry, Shortness of breath, SOB with excertion, Wheezing, Hemoptysis, Pleuritic Pain, Sputum, Wheezing, Other Cardiovascular: No: Chest Pain, Palpitations, Orthopnea, Paroxysmal Noc. Dyspnea, Edema, Lt Headedness, Other Gastrointestinal: No: Nausea, Vomiting, Abdominal Pain, Diarrhea, Constipation, Melena, Hematochezia, Other Genitourinary: No Dysuria, No Frequency, No Incontinence, No Hematuria, No Retention, No Other Musculoskeletal: No: other, neck pain, shoulder pain, arm pain, back pain, hand pain, leg pain, foot pain Skin: Other (Abdominal surgical scar); No: Rash, Lesions, Jaundice, Bruising Neurological: No: Weakness, Numbness, Incoordination, Change in speech, Confusion, Seizures, Other Allergies: Coded Allergies: Metoclopramide (Unverified Allergy, Unknown, 03/27/25) Prochlorperazine (Unverified Allergy, Unknown, 03/27/25) Topiramate (Verified Allergy, Unknown, BECOMES ALTERED AND SWOLLEN, ) Medications Current Medications Medications Dose Ordered Sig/Koby Route Start Time Stop Time Status Last Admin Dose Admin Gabapentin 300 mg BID PO 06/19/25 10:00 Alprazolam 1 mg Q8HPRN PRN PO 06/19/25 02:00 Celecoxib 100 mg Q12HR PO 06/19/25 10:00 Baclofen 5 mg Q8HR PO 06/19/25 06:00 Duloxetine HCl 30 mg BID PO 06/19/25 10:00 Diagnostic Test (Pha) 1 strip ACHS 06/19/25 07:00 Insulin Human Regular ACHS SC 06/19/25 07:00 Dextrose 50 ml UD PRN IV 06/19/25 02:00 Sodium Chloride 10 ml Q8HR IV 06/19/25 06:00 Ondansetron HCl 4 mg Q4HP PRN IV 06/19/25 02:00 Docusate Sodium 100 mg BIDPRN PRN PO 06/19/25 02:00 Acetaminophen 650 mg Q6HP PRN PO 06/19/25 02:00 Exam Vital Signs Vital Signs Date Time Temp Pulse Resp B/P (MAP) Pulse Ox O2 Delivery O2 Flow Rate FiO2 06/18/25 22:30 80 14 110/56 (74) 100 06/18/25 19:30 97.8 97.8 06/18/25 19:30 Room Air* 0 21 General Appearance: Alert, Oriented X3, Cooperative, No acute distress HEENT: Atraumatic, PERRLA, EOMI, Mucous membr. moist/pink Respiratory: Normal air movement Cardiovascular: Regular rate, Normal S1, Normal S2, No murmurs Abdominal: Normal bowel sounds, Soft, No tenderness, No hepatospenomegaly, No masses Extremities: No clubbing, No cyanosis, No edema, Normal pulses, No tenderness/swelling Skin: No rashes, No significant lesion Neuro: Normal gait, Normal speech, Strength at 5/5 X4 ext, Normal tone, Sensation intact, Cranial nerves 3-12 NL, Reflexes 2+ Psych/Mental Status: Mental status NL, Mood NL Labs/Xrays Labs Test 06/18/25 23:20 06/18/25 19:45 06/18/25 19:44 Range/Units Urine Color Yellow Yellow Urine Clarity Turbid H Clear Urine pH 5.5 5.0-9.0 Urine Specific [place] > 1.050 H 1.001-1.035 Urine Protein 1+ H Negative Urine Ketones Trace Negative Urine Blood 1+ H Negative /uL Urine Nitrite Negative Negative Urine Bilirubin Negative Negative Urine Urobilinogen 2 H Negative mg/dL Urine Leukocyte Esterase 2+ Negative /uL Urine RBC 6 0 - 4 /hpf Urine Microscopic WBC 13 H 0-5 /HPF Urine Squamous Epithelial Cells Mod <5 /hpf Urine Bacteria Few H None Seen /hpf Urine Mucus Few None Seen Urine Glucose Normal Normal mg/dL Urine Opiates Screen Positive NEGATIVE Urine Fentanyl Screen Negative NEGATIVE Urine Barbiturates Screen Negative NEGATIVE Urine Phencyclidine Screen Negative NEGATIVE Urine Amphetamines Screen Negative NEGATIVE Urine Benzodiazepines Screen Positive NEGATIVE Urine Cocaine Screen Negative NEGATIVE Urine Cannabinoids Screen Negative NEGATIVE Lactic Acid Level 1.9 0.4-2.0 mmol/L White Blood Count 15.0 H 4.4-10.8 10^3/uL Red Blood Count 3.91 L 4.0-5.20 10^6/uL Hemoglobin 11.5 L 12.2-16.2 g/dL Hematocrit 36.8 36.0-46.0 % Mean Corpuscular Volume 94.0 80.0-100.0 fL Mean Corpuscular Hemoglobin 29.4 28.0-32.0 pg Mean Corpuscular Hemoglobin Concent 31.3 L 32.0-36.0 g/dL Red Cell Distribution Width 17.2 H 11.8-14.3 % Platelet Count 353 140-450 10^3/uL Mean Platelet Volume 7.4 6.9-10.8 fL Neutrophils (%) (Auto) 75.8 37.0-80.0 % Lymphocytes (%) (Auto) 16.1 10.0-50.0 % Monocytes (%) (Auto) 5.3 0.0-12.0 % Eosinophils (%) (Auto) 2.2 0.0-7.0 % Basophils (%) (Auto) 0.6 0.0-2.0 % Neutrophils # (Auto) 11.3 H 1.6-8.6 10 ^3/uL Lymphocytes # (Auto) 2.4 0.4-5.4 10 ^3/uL Monocytes # (Auto) 0.8 0-1.3 10 ^3/uL Eosinophils # (Auto) 0.3 0-0.8 10 ^3/uL Basophils # (Auto) 0.1 0-0.2 10 ^3/uL Nucleated Red Blood Cells 0.1 % Sodium Level 144 136-145 mmol/L Potassium Level 4.1 3.5-5.1 mmol/L Chloride Level 109 H 98-107 mmol/L Carbon Dioxide Level 23 20-31 mmol/L Anion Gap 12 5-15 Blood Urea Nitrogen 25 H 9-23 mg/dL Creatinine 0.73 0.550-1.02 mg/dL Glomerular Filtration Rate Calc 106 >90 mL/min BUN/Creatinine Ratio 34.2 H 10.0-20.0 Serum Glucose 98 74-106 mg/dL Calcium Level 9.2 8.7-10.4 mg/dL Total Bilirubin < 0.2 L 0.2-1.0 mg/dL Aspartate Amino Transferase (AST) 38 13-40 U/L Alanine Aminotransferase (ALT) 25 7-40 U/L Alkaline Phosphatase 105 46-116 U/L Total Protein 6.7 5.7-8.2 g/dL Albumin 4.3 3.2-4.8 g/dL PATIENT: LAURA PIZARRO JACCT: [id number] UNIT: [id number] : 1985 LOC: ER ROOM / BED: / AGE / SEX: 40 / F ADM STATUS: REG ER SERVICE 28 ORDERING PHYSICIAN: EMMANUEL BELTRAN PROCEDURE(s): HWOCT - HEAD WITHOUT CONTRAST REASON: syncope ORDER NUMBER(s): [id number], ACCESSION NUMBER(s): [id number] CLINICAL HISTORY: syncope TECHNIQUE: Helical scanning was performed of the head from the skull base to the vertex. Multiplanar reconstructions were performed. This exam was performed according to our departmental dose optimization program. Up-to-date CT equipment and radiation dose reduction techniques are utilized as appropriate. WID: COMPARISON: CT HEAD W WO CONTRAST on DOS: 03/31/25, CT BRAIN on DOS: 01/03/24 FINDINGS: There is no acute intracranial hemorrhage, CT evidence of acute ischemic changes, mass effect, midline shift, or extra-axial fluid collection. There is a right frontal approach ventriculoperitoneal shunt which terminates in the left anterior horn of the lateral ventricle. The imaged intraorbital structures are unremarkable The imaged paranasal sinuses are clear. The mastoid air cells are clear. The calvarium is intact. IMPRESSION: NO ACUTE INTRACRANIAL FINDINGS Right frontal approach ventriculoperitoneal shunt unchanged in position when compared to prior without evidence of hydrocephalus. ORDERING PHYSICIAN: EMMANUEL BELTRAN PROCEDURE(s): CXR1 - CHEST XRAY 1 VIEW REASON: syncope ORDER NUMBER(s): [id number], ACCESSION NUMBER(s): [id number] EXAM: XY CHEST XRAY 1 VIEW HISTORY: syncope TECHNIQUE: 1 view of the chest COMPARISON: XY CHEST PORTABLE on DOS: 03/26/25 FINDINGS/IMPRESSION: LUNGS: No pleural effusion, consolidation, or pneumothorax. MEDIASTINUM: Unremarkable. BONES: No acute osseous abnormality. OTHER: Right anterior chest port-A-Cath. Right-sided chest shunt catheter extending along the right lower neck and projecting over the mid aspect of the chest. SEPSIS Sepsis Screen Date sepsis recognized/suspect: Jun 18, 2025 Time Sepsis recognized/suspect: 1945 Recent Procedure: No On Antibiotic Therapy: No Respiratory Rate >20: No Heart Rate >90: Yes Temp<36 C (96.8 F) or >38.3 C: No SBP <90 or MAP <65 mmHG: No New Acute Mental Status Change: No Is the patient on CPAP, BIPAP,: No Physician Orders Head Without Contrast (06/18/25 19:29) Chest Xray 1 View (06/18/25 19:29) Urine Bacterial Culture (06/19/25 01:47) Gabapentin Capsule (Neurontin Capsule) (06/19/25 10:00) Alprazolam Tablet (Xanax Tablet) (06/19/25 02:00) Celecoxib Capsule (Celebrex Capsule) (06/19/25 10:00) Baclofen Tablet (Liorisal Tablet) (06/19/25 06:00) Duloxetine Hcl Capsule (Cymbalta Capsule (06/19/25 10:00) Glucose Blood (Accu-Chek Comfort Curve T (06/19/25 07:00) Insulin R (Human) (Insulin R) (06/19/25 07:00) Dextrose 50% Syringe (06/19/25 02:00) Allergies (06/19/25 01:47) Code Status (06/19/25 01:47) Sodium Chloride Lock (Saline Lock Ns) (06/19/25 06:00) Oxygen Per Hour (06/19/25 01:47) Ondansetron Hcl (Zofran) (06/19/25 02:00) Docusate Sodium Capsule (Colace Capsule) (06/19/25 02:00) Fall Risk Precautions In Place QSHIFT (06/19/25 01:47) Complete Blood Count (06/20/25 04:00) Comprehensive Metabolic Panel (06/20/25 04:00) Cardiac Diet-2gna,Lofat,Lochol (06/19/25 Breakfast) Condition: Serious (06/19/25 01:47) Acetaminophen Tablet (Tylenol Tablet) (06/19/25 02:00) Maintain Bed Rest (06/19/25 01:47) Sequential Compression Device (06/19/25 ) Complete Blood Count (06/19/25 04:00) Comprehensive Metabolic Panel (06/19/25 04:00) Admit (06/19/25 02:16) Nitroglycerin Sublingual (Ntrostat Subli (06/19/25 02:30) Morphine Sulfate Injection (06/19/25 02:30) Vital Signs Date Time Temp Pulse Resp B/P (MAP) Pulse Ox O2 Delivery O2 Flow Rate FiO2 06/18/25 22:30 80 14 110/56 (74) 100 06/18/25 22:00 77 8 75/41 06/18/25 19:30 97.8 69 12 105/63 (77) 100 97.8 06/18/25 19:30 69 12 100 Room Air* 0 21 06/18/25 18:52 98.2 76 17 134/85 98 98.2 Laboratory Tests Test 06/18/25 19:44 06/18/25 19:45 White Blood Count 15.0 10^3/uL (4.4-10.8) H Lactic Acid Level 1.9 mmol/L (0.4-2.0) Medications Medications Dose Ordered Sig/Koby Route Start Time Stop Time Status Last Admin Dose Admin Ceftriaxone Sodium 50 ml @ 100 mls/hr ONCE ONCE IV 06/19/25 01:30 06/19/25 01:59 DC 06/19/25 01:38 100 MLS/HR Diphenhydramine HCl 25 mg ONCE ONCE IV 06/18/25 22:00 06/18/25 22:01 DC 06/18/25 22:34 25 MG Assessment/Plan Assessment/Plan Toxic encephalopathy Urinary tract infection Leukocytosis, unspecified Acute cystitis with hematuria Plan 1. Admit to telemetry units 2. Breathing treatment 3. Pain control management 4. IV antibiotic management 5. Management of fluids and electrolytes 6. Consultation for hospitalist 7. Diagnostic test chest x-ray 8. DVT prophylaxis-on SCDs 9. Repeat labs CBC, CMP in a.m. 10. Home medication reviewed and reconciled 11. Continue with current medical management 12. Treatment plan discussed with patient and RN. Patient verbalized understanding. Plan discussed with: Patient, Other (RN) My Orders Orders - RUBEN CROSS DNP Procedure Category Date Status Time Urine Bacterial STACEY 06/19/25 In Process Culture 01:47 Gabapentin Capsule PHA 06/19/25 In Process (Neurontin Capsule) 10:00 Alprazolam Tablet PHA 06/19/25 In Process (Xanax Tablet) 02:00 Celecoxib Capsule PHA 06/19/25 In Process (Celebrex Capsule) 10:00 Baclofen Tablet PHA 06/19/25 In Process (Liorisal Tablet) 06:00 Duloxetine Hcl PHA 06/19/25 In Process Capsule (Cymbalta 10:00 Glucose Blood PHA 06/19/25 In Process (Accu-Chek Comfort 07:00 Insulin R (Human) PHA 06/19/25 In Process (Insulin R) 07:00 Dextrose 50% Syringe PHA 06/19/25 In Process 02:00 Allergies RICKY 06/19/25 In Process 01:47 Code Status CODE 06/19/25 Transmitted 01:47 Sodium Chloride Lock PHA 06/19/25 In Process (Saline Lock Ns) 06:00 Oxygen Per Hour RT 06/19/25 Transmitted 01:47 Ondansetron Hcl PHA 06/19/25 In Process (Zofran) 02:00 Docusate Sodium PHA 06/19/25 In Process Capsule (Colace 02:00 Fall Risk Precautions RICKY 06/19/[address] 01:47 Complete Blood Count LAB 06/20/25 Verified 04:00 Comprehensive LAB 06/20/25 Verified Metabolic Panel 04:00 Cardiac DIET 06/19/25 Transmitted Diet-2gna,Lofat,Lochol Breakfast Condition: Serious RICKY 06/19/25 In Process 01:47 Acetaminophen Tablet PHA 06/19/25 In Process (Tylenol Tablet) 02:00 Maintain Bed Rest RICKY 06/19/25 In Process 01:47 Sequential RICKY 06/19/25 In Process Compression Device Complete Blood Count LAB 06/19/25 Logged 04:00 Comprehensive LAB 06/19/25 Logged Metabolic Panel 04:00 Admit ADMIT 06/19/25 Verified 02:16 Nitroglycerin PHA 06/19/25 Verified Sublingual (Ntrostat 02:30 Morphine Sulfate PHA 06/19/25 Verified Injection 02:30 Problem List: (1) Toxic encephalopathy (2) UTI (urinary tract infection) (3) Leukocytosis, unspecified (4) Acute cystitis with hematuria Date of Service: Jun 19, 2025 Billing Provider: RUBEN CROSS DNP Common Visit Codes: [id number] INP/OBS CARE (HIGH) RUBEN CROSS DNP Jun 19, 2025 02:17
[2025-06-19] MEDS ORDERED: NITROGLYCERIN 0.4 MG SL TAB SL PRN (02:30)
[2025-06-19] MEDS ORDERED: MORPHINE SULFATE INJ 2 MG/ml SYRG IV PRN (02:30)
[2025-06-19 03:38] LABS: Hematocrit 34.0 % (36.0-46.0); Hemoglobin 10.9 g/dL (12.2-16.2); Mean Corpuscular Hemoglobin 29.6 pg (28.0-32.0); Mean Corpuscular Volume 91.8 fL (80.0-100.0); Nucleated Red Blood Cells % 0.2 %
[2025-06-19 03:50] LABS: Alanine Aminotransferase 23 U/L (7-40); Albumin 4.4 g/dL (3.2-4.8); Alkaline Phosphatase 106 U/L (46-116); Anion Gap 11 (5-15); BUN/Creatinine Ratio 32.4 (10.0-20.0); Calcium 9.0 mg/dL (8.7-10.4); Carbon Dioxide 24 mmol/L (20-31); Chloride 105 mmol/L (98-107); Glucose 86 mg/dL (74-106); Potassium 4.1 mmol/L (3.5-5.1); Sodium 140 mmol/L (136-145); Total Protein 6.9 g/dL (5.7-8.2)
[2025-06-19 03:59] LABS: Bilirubin, Total 0.2 mg/dL (0.2-1.0); Blood Urea Nitrogen 24 mg/dL (9-23)
[2025-06-19] MEDS: SODIUM CHLOR 0.9% PF (SALINE LOCK) 10ML VIAL/SYR IV SCH (06:11)
[2025-06-19] MEDS: BACLOFEN 10 MG TAB PO SCH (06:15)
[2025-06-19] MEDS: InsuLIN REG 1unit/0.01ml Soln (100units/ml) SC SCH (07:00)
[2025-06-19] MEDS: ACCU-CHEK COMFORT CURVE STRIP VI SCH (07:04)
[2025-06-19 07:40] VITALS: PULSE 66; RESP 12; O2SAT 99
[2025-06-19] MEDS: CELECOXIB 100 MG CAP PO SCH (09:51)
[2025-06-19] MEDS: GABAPENTIN 300 MG CAP PO SCH (09:51)
[2025-06-19 11:30] VITALS: PULSE 72; RESP 12; O2SAT 99
--- NOTE | 2025-06-19 12:55 | DVHPN2 ---
Changes from previous H/P or p: No Changes Eyes: No Pain, No Vision change, No Conjunctivae inflammation, No Eyelid inflammation, No Other, No Redness ENT: No Ear pain, No Ear discharge, No Nose pain, No Nose discharge, No Nose congestion, No Mouth pain, No Mouth swelling, No Throat pain, No Throat swelling, No Other Cardiovascular: No Chest Pain, No Palpitations, No Orthopnea, No Paroxysmal Noc. Dyspnea, No Edema, No Lt Headedness, No Other Respiratory: No Cough, No Dry, No Shortness of breath, No SOB with excertion, No Wheezing, No Hemoptysis, No Pleuritic Pain, No Sputum, No Other Gastrointestinal: No Nausea, No Vomiting, No Abdominal Pain, No Diarrhea, No Constipation, No Melena, No Hematochezia, No Other Genitourinary: No Dysuria, No Frequency, No Incontinence, No Hematuria, No Retention, No Other Musculoskeletal: No other, No neck pain, No shoulder pain, No arm pain, No back pain, No hand pain, No leg pain, No foot pain Skin: No Rash, No Lesions, No Jaundice, No Bruising; Other (Abdominal surgical scar) Objective Vitals Vital Signs Date Time Temp Pulse Resp B/P (MAP) Pulse Ox O2 Delivery O2 Flow Rate FiO2 06/19/25 11:30 72 12 99 Room Air* 0 21 06/19/25 07:40 97.7 83/44 (57) 97.7 Medications Current Medications Medications Dose Ordered Sig/Koby Route Start Time Stop Time Status Last Admin Dose Admin Gabapentin 300 mg BID PO 06/19/25 10:00 06/19/25 09:51 300 MG Alprazolam 1 mg Q8HPRN PRN PO 06/19/25 02:00 Celecoxib 100 mg Q12HR PO 06/19/25 10:00 06/19/25 09:51 100 MG Baclofen 5 mg Q8HR PO 06/19/25 06:00 06/19/25 06:15 5 MG Duloxetine HCl 30 mg BID PO 06/19/25 10:00 06/19/25 09:51 30 MG Diagnostic Test (Pha) 1 strip ACHS 06/19/25 07:00 06/19/25 11:38 1 STRIP Insulin Human Regular ACHS SC 06/19/25 07:00 Dextrose 50 ml UD PRN IV 06/19/25 02:00 Sodium Chloride 10 ml Q8HR IV 06/19/25 06:00 06/19/25 06:11 10 ML Ondansetron HCl 4 mg Q4HP PRN IV 06/19/25 02:00 Docusate Sodium 100 mg BIDPRN PRN PO 06/19/25 02:00 Acetaminophen 650 mg Q6HP PRN PO 06/19/25 02:00 Nitroglycerin 0.4 mg Q5MINP PRN SL 06/19/25 02:30 Morphine Sulfate 2 mg Q30M PRN IV 06/19/25 02:30 Ceftriaxone Sodium 50 ml @ 100 mls/hr DAILY@2100 IV 06/19/25 21:00 Laboratory Results Laboratory Tests 06/19/25 03:15 Chemistry Test 06/18/25 19:44 06/19/25 03:15 Albumin 4.3 g/dL (3.2-4.8) 4.4 g/dL (3.2-4.8) Calcium Level 9.2 mg/dL (8.7-10.4) 9.0 mg/dL (8.7-10.4) Total Protein 6.7 g/dL (5.7-8.2) 6.9 g/dL (5.7-8.2) LFT Test 06/18/25 19:44 06/19/25 03:15 Alanine Aminotransferase (ALT) 25 U/L (7-40) 23 U/L (7-40) Alkaline Phosphatase 105 U/L (46-116) 106 U/L (46-116) Aspartate Amino Transferase (AST) 38 U/L (13-40) 34 U/L (13-40) Total Bilirubin < 0.2 mg/dL (0.2-1.0) L 0.2 mg/dL (0.2-1.0) Urinalysis Test 06/18/25 23:20 Urine Color Yellow (Yellow) Urine Clarity Turbid (Clear) H Urine pH 5.5 (5.0-9.0) Urine Specific [place] > 1.050 (1.001-1.035) Urine Protein 1+ (Negative) H Urine Ketones Trace (Negative) Urine Blood 1+ /uL (Negative) H Urine Nitrite Negative (Negative) Urine Bilirubin Negative (Negative) Urine Urobilinogen 2 mg/dL (Negative) H Urine Leukocyte Esterase 2+ /uL (Negative) Urine RBC 6 /hpf (0 - 4) Urine Microscopic WBC 13 /HPF (0-5) H Urine Squamous Epithelial Cells Mod /hpf (<5) Urine Bacteria Few /hpf (None Seen) H Urine Mucus Few (None Seen) Urine Glucose Normal mg/dL (Normal) Labs and/or images reviewed: Labs reviewed by me, Image(s) reviewed by me Assessment/Plan Assessment/Plan Sepsis secondary to urinary tract infection: Blood cultures urine cultures Rocephin Acute hypoglycemia blood sugar 65 in the field Poorly-controlled diabetes: Insulin sliding scale A1c pending Metabolic encephalopathy Patient is full code Advanced care planning time 20 minutes Time Spent 45 minutes Plan discussed with: Patient Date of Service: Jun 19, 2025 Billing Provider: SUMAN FROST MD Common Visit Codes: [id number] INP/OBS CARE(HIGH) Secondary Visit Codes: [id number] CARE PLAN 30 MINUTES SUMAN FROST MD Jun 19, 2025 12:55
[2025-06-19] MEDS ORDERED: MORPHINE SULFATE 4 MG/ML SYR/VIAL IV PRN (14:15)
[2025-06-19] MEDS: diphenhydrAMINE HCL 50 MG/1 ML VL IV PRN (14:34)
[2025-06-19] MEDS: MORPHINE SULFATE 4 MG/ML SYR/VIAL IV PRN (14:35)
[2025-06-19 15:00] VITALS: BP 117/62; PULSE 88; RESP 18; TEMP 97.9; O2SAT 98
[2025-06-19 16:30] VITALS: BP 117/62; PULSE 88; RESP 18; TEMP 97.9; O2SAT 98
[2025-06-19] MEDS: ACETAMINOPHEN 325 MG TAB PO PRN (17:05)
[2025-06-19] MEDS: ALPRAZolam 0.5 MG TAB PO PRN (17:05)
[2025-06-19 19:25] VITALS: BP 97/62; PULSE 96; RESP 16; O2SAT 88
[2025-06-19 19:30] VITALS: BP 96/69; PULSE 102; RESP 16; O2SAT 82
[2025-06-20 05:00] VITALS: BP 110/51; PULSE 91; RESP 19; TEMP 98.3; O2SAT 97
[2025-06-20 07:59] VITALS: BP 102/65; PULSE 70; RESP 18; TEMP 99; O2SAT 100
[2025-06-20 08:50] LABS: Alanine Aminotransferase 20 U/L (7-40); Albumin 3.7 g/dL (3.2-4.8); Alkaline Phosphatase 97 U/L (46-116); Anion Gap 12 (5-15); BUN/Creatinine Ratio 33.3 (10.0-20.0); Blood Urea Nitrogen 15 mg/dL (9-23); Carbon Dioxide 23 mmol/L (20-31); Potassium 4.9 mmol/L (3.5-5.1); Total Protein 5.8 g/dL (5.7-8.2)
[2025-06-20 08:52] LABS: Bilirubin, Total < 0.2 mg/dL (0.2-1.0); Calcium 8.4 mg/dL (8.7-10.4); Chloride 110 mmol/L (98-107); Glucose 113 mg/dL (74-106); Sodium 145 mmol/L (136-145)
[2025-06-20 09:55] VITALS: BP 106/71; PULSE 81; RESP 18
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
[2025-06-20] MEDS ORDERED: CIPR-173 PO (10:03)
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
[2025-06-20 10:23] LABS: Hematocrit 34.6 % (36.0-46.0); Hemoglobin 10.8 g/dL (12.2-16.2); Mean Corpuscular Hemoglobin 29.4 pg (28.0-32.0); Mean Corpuscular Volume 93.8 fL (80.0-100.0); Nucleated Red Blood Cells % 0.1 %
[2025-06-20 10:43] VITALS: TEMP 37.2
== END 2025-06-20 12:00 | disposition home or self-care (01) | DRG 871 ==
LOC: EDBD 18:36 → ER 18:36 → OVERFLOW 06-19 02:16 → EAST 06-19 14:57 → TELE-EAST 06-19 20:28
PROVIDERS: ADMIT Family Medicine; ATTEND Family Medicine
DX: A41.9 Sepsis, unspecified organism (principal); G92.8 Other toxic encephalopathy; K90.829 Short bowel syndrome, unspecified; N30.01 Acute cystitis with hematuria; D35.2 Benign neoplasm of pituitary gland; D72.829 Elevated white blood cell count, unspecified; E16.2 Hypoglycemia, unspecified; F17.200 Nicotine dependence, unspecified, uncomplicated; F41.9 Anxiety disorder, unspecified; Z98.2 Presence of cerebrospinal fluid drainage device; Z90.49 Acquired absence of other specified parts of digestive tract; Z88.8 Allergy status to other drugs, medicaments and biological substances
CPT/HCPCS: 36415; 70450; 71045; 80053; 80307; 81001; 82962; 83036; 83605; 85025; 87081; 87086; 96374; G0378

== ENCOUNTER 2025-07-07 23:50 | Inpatient (IN) | payer MEDICARE, MEDICAID ==
[~2025-07-07] VITALS: Ht 170.2 cm; Wt 70.2 kg
[2025-07-08] MEDS: SODIUM CHLORIDE 0.9% 1,000 ML IV ONE (01:15)
[2025-07-08] MEDS: ONDANSETRON HCL 4 MG/2 ML VIAL IV ONE (01:15)
[2025-07-08] MEDS: KETOROLAC TROMETH 30 MG/ML 1ML VIAL IV ONE (01:15)
--- NOTE | 2025-07-08 01:18 | ED.PDOC ---
History of present illness HPI Comments 40 year-old female, with a Hx of Pseudotumor Cerebri and Hypoglycemia, presents to the ED with a chief complaint of low BGL. Patient reports feeling lethargic today, with associated symptoms of headache, abdominal pain, and face pain. She is taking Glucagon for Hypoglycemia. BGL levels per EMS was 71 on scene. Patient was given 15MG oral glucose upon arrival. BGL improved to 140. Patient reports additional low back pain, which is chronic. Patient reports having BACON SLICER shunts in place.There are no further complaints or modifying factors at this time. Patient's vitals are stable. REVIEW OF SYSTEMS: General: No fever, no chills, or fatigue HEENT: No sore throat, no earache, no congestion, no neck pain. Cardiac: No chest pain. No palpitations. Lungs: No shortness of breath, no cough. GI: No nausea, no vomiting, no diarrhea, no constipation, + abdominal pain : No dysuria, frequency, or urgency. No hematuria. Musculoskeletal: No joint pain , no joint swelling, no extremity edema. Skin: No rash, no itching. Neuro: + headache, + face pain, no dizziness, no weakness (And as sated in HPI) PHYSICAL EXAM: General: + slow speech. Awake, alert and oriented. No acute distress. Skin: Skin in warm, dry and intact. Appropriate color for ethnicity. HEENT: The head is normocephalic and atraumatic. Conjunctivae are clear without exudates or hemorrhage. Sclera is non-icteric. Eyelids are normal in appearance without swelling or lesions. Oral mucosa is pink and moist Neck: The neck is supple with normal range of motion. No JVD. Cardiac: Heart rate and rhythm are normal. No murmurs, gallops, or rubs are auscultated. Respiratory: No signs of respiratory distress. Lung sounds are clear in all lobes bilaterally without rales, rhonchi, or wheezes. Abdominal: Abdomen is soft, non-tender without distention, guarding or rigidity. Bowel sounds are present and normoactive in all four quadrants. Extremities: (+) Strength in upper and lower extremities intact. Lower extremities without edema. Neurological: The patient is awake, alert and oriented to person, place, and time with normal speech. Speech is clear. There is no facial asymmetry. Psychiatric: Appropriate mood and affect. Good judgement and insight. Chief Complaint: Hypoglycemia Time Seen by MD: 00:32 History of present illness: Medications, Allergies Allergies: Coded Allergies: Metoclopramide (Verified Allergy, Unknown, 07/08/25) Prochlorperazine (Verified Allergy, Unknown, 07/08/25) Information Source: Patient Mode of Arrival: EMS Timing: Hours Duration: Since onset Past Medical History Past Medical History (Other): Pseudotumor Cerebri, hypoglycemia Surgical History: Denies all surgeries ENTRY LEVEL DRAFTER History: No Pertinent ENTRY LEVEL DRAFTER History Family History Family History: Reviewed,noncontributory to illness, No family hx of Cancer, No family hx of DM, No family hx of Heart carlos, No family hx of HTN, No family hx of Kidney carlos, No family hx of Liver carlos, No family hx of Lung carlos, No family hx of Stroke Social History Smoker: Non-Smoker Alcohol: Denies ETOH Use Drugs: Denies Drug Use Lives In: Home Was a procedure done? Was a procedure done?: No Differential Diagnosis (DM) Differential Diagnosis: Cholecystitis, Dehydration, Gastritis, Gastroenteritis, Hyperglycemia, Pancreatitis, UTI X-Ray, Labs, Meds, VS Vital Signs Date Time Temp Pulse Resp B/P (MAP) Pulse Ox O2 Delivery O2 Flow Rate FiO2 07/08/25 02:28 98.7 98 14 108/98 (101) 97 98.7 07/08/25 02:17 Room Air* 0 21 07/08/25 00:10 97.5 91 16 90/48 98 97.5 Lab Test 07/08/25 01:31 07/08/25 01:12 Range/Units White Blood Count 6.3 4.4-10.8 10^3/uL Red Blood Count 3.88 L 4.0-5.20 10^6/uL Hemoglobin 11.2 L 12.2-16.2 g/dL Hematocrit 35.9 L 36.0-46.0 % Mean Corpuscular Volume 92.7 80.0-100.0 fL Mean Corpuscular Hemoglobin 28.8 28.0-32.0 pg Mean Corpuscular Hemoglobin Concent 31.1 L 32.0-36.0 g/dL Red Cell Distribution Width 16.5 H 11.8-14.3 % Platelet Count 358 140-450 10^3/uL Mean Platelet Volume 7.3 6.9-10.8 fL Neutrophils (%) (Auto) 47.1 37.0-80.0 % Lymphocytes (%) (Auto) 39.9 10.0-50.0 % Monocytes (%) (Auto) 5.7 0.0-12.0 % Eosinophils (%) (Auto) 6.3 0.0-7.0 % Basophils (%) (Auto) 1.0 0.0-2.0 % Neutrophils # (Auto) 3.0 1.6-8.6 10 ^3/uL Lymphocytes # (Auto) 2.5 0.4-5.4 10 ^3/uL Monocytes # (Auto) 0.4 0-1.3 10 ^3/uL Eosinophils # (Auto) 0.4 0-0.8 10 ^3/uL Basophils # (Auto) 0.1 0-0.2 10 ^3/uL Nucleated Red Blood Cells 0.1 % Sodium Level 141 136-145 mmol/L Potassium Level 4.5 3.5-5.1 mmol/L Chloride Level 110 H 98-107 mmol/L Carbon Dioxide Level 20 20-31 mmol/L Anion Gap 11 5-15 Blood Urea Nitrogen 22 9-23 mg/dL Creatinine 0.60 0.550-1.02 mg/dL Glomerular Filtration Rate Calc 116 >90 mL/min BUN/Creatinine Ratio 36.7 H 10.0-20.0 Serum Glucose 91 74-106 mg/dL Calcium Level 9.2 8.7-10.4 mg/dL Magnesium Level 2.1 1.6-2.6 mg/dL Total Bilirubin < 0.2 L 0.2-1.0 mg/dL Aspartate Amino Transferase (AST) 27 13-40 U/L Alanine Aminotransferase (ALT) 25 7-40 U/L Alkaline Phosphatase 117 H 46-116 U/L Troponin I High Sensitivity 19 </=34 ng/L Total Protein 6.5 5.7-8.2 g/dL Albumin 4.2 3.2-4.8 g/dL Plasma/Serum Blood Alcohol Pending Urine Color Yellow Yellow Urine Clarity Clear Clear Urine pH 5.5 5.0-9.0 Urine Specific [place] 1.041 H 1.001-1.035 Urine Protein Trace H Negative Urine Ketones Trace Negative Urine Blood Negative Negative /uL Urine Nitrite Negative Negative Urine Bilirubin Negative Negative Urine Urobilinogen Normal Negative mg/dL Urine Leukocyte Esterase 2+ Negative /uL Urine RBC None seen 0 - 4 /hpf Urine Microscopic WBC 1 0-5 /HPF Urine Squamous Epithelial Cells Few <5 /hpf Urine Bacteria None seen None Seen /hpf Urine Mucus Few None Seen Urine Glucose Normal Normal mg/dL Current Medications Medications (Trade) Dose Ordered Sig/Koby Route Start Time Stop Time Status Last Admin Sodium Chloride 1,000 ml @ 1,000 mls/hr Q1H ONCE IV 07/08/25 01:15 07/08/25 02:14 DC 07/08/25 01:15 Time of 1ST Reevaluation: 02:08 Reevaluation 1ST: Unchanged Patient Education/Counseling: Diagnosis, Treatment, Need For Follow Up Family Education/Counseling: No Family Present SEPSIS Sepsis Screen Date sepsis recognized/suspect: Jul 08, 2025 Time Sepsis recognized/suspect: 13 Recent Procedure: No On Antibiotic Therapy: No Respiratory Rate >20: No Heart Rate >90: Yes Temp<36 C (96.8 F) or >38.3 C: No SBP <90 or MAP <65 mmHG: No New Acute Mental Status Change: No Is the patient on CPAP, BIPAP,: No Physician Orders Blood Alcohol (07/08/25 02:24) Magnesium Sulfate 1gm/100ml (07/08/25 02:30) Head Without Contrast (07/08/25 02:31) Vital Signs Date Time Temp Pulse Resp B/P (MAP) Pulse Ox O2 Delivery O2 Flow Rate FiO2 07/08/25 02:28 98.7 98 14 108/98 (101) 97 98.7 07/08/25 02:17 Room Air* 0 21 07/08/25 00:10 97.5 91 16 90/48 98 97.5 Laboratory Tests Test 07/08/25 01:31 White Blood Count 6.3 10^3/uL (4.4-10.8) Medications Medications Dose Ordered Sig/Koby Route Start Time Stop Time Status Last Admin Dose Admin Sodium Chloride 1,000 ml @ 1,000 mls/hr Q1H ONCE IV 07/08/25 01:15 07/08/25 02:14 DC 07/08/25 01:15 Departure 1 Departure Comments 40-year-old female presents to the emergency department reporting history of pseudotumor cerebri, headache, abdominal pain, low blood sugar. Patient was offered IV Toradol, IV Tylenol, IV magnesium for treatment of headache. Patient declined. She requested a combination of Benadryl and Dilaudid for treatment of her headache. Critical Care Note Critical Care Time?: No Stability Stability form required: No Heart Score Heart Score: Heart Score Response (Comments) Value History N/A 0 EKG N/A 0 Age N/A 0 Risk Factors N/A 0 Troponin N/A 0 Total 0 I personally scribed for TANIKA ORTEGA MD ([email or web address]) on 07/08/25 at 01:18. Electronically submitted by Diane Bowie ([employer]). I personally scribed for TANIKA ORTEGA MD ([email or web address]) on 07/08/25 at 01:51. Electronically submitted by Diane Bowie ([facility]). I personally scribed for TANIKA ORTEGA MD ([email or web address]) on 07/08/25 at 01:53. Electronically submitted by Diane Bowie ([facility]). I personally scribed for TANIKA ORTEGA MD ([email or web address]) on 07/08/25 at 01:53. Electronically submitted by Diane Bowie ([facility]). TANIKA ORTEGA MD Jul 08, 2025 01:18
[2025-07-08 01:25] LABS: Urine Protein, UAD TRACE (Negative)
[2025-07-08 02:00] LABS: Hematocrit 35.9 % (36.0-46.0); Hemoglobin 11.2 g/dL (12.2-16.2); Mean Corpuscular Hemoglobin 28.8 pg (28.0-32.0); Mean Corpuscular Volume 92.7 fL (80.0-100.0); Nucleated Red Blood Cells % 0.1 %
[2025-07-08 02:20] LABS: Alanine Aminotransferase 25 U/L (7-40); Albumin 4.2 g/dL (3.2-4.8); Alkaline Phosphatase 117 U/L (46-116); Anion Gap 11 (5-15); BUN/Creatinine Ratio 36.7 (10.0-20.0); Blood Urea Nitrogen 22 mg/dL (9-23); Calcium 9.2 mg/dL (8.7-10.4); Carbon Dioxide 20 mmol/L (20-31); Chloride 110 mmol/L (98-107); Glucose 91 mg/dL (74-106); Magnesium 2.1 mg/dL (1.6-2.6); Potassium 4.5 mmol/L (3.5-5.1); Sodium 141 mmol/L (136-145); Total Protein 6.5 g/dL (5.7-8.2)
[2025-07-08 02:22] LABS: Bilirubin, Total < 0.2 mg/dL (0.2-1.0)
[2025-07-08] MEDS: MAGNESIUM SULFATE 1GM/100ML 100 ML IV SCH (02:30)
[2025-07-08] MEDS: ACETAMINOPHEN IV 1000 MG/100ML (10MG/ML) IV ONE (02:59)
[2025-07-08] MEDS ORDERED: ACETAMINOPHEN 325 MG TAB PO PRN (03:15)
[2025-07-08] MEDS ORDERED: HYDROcodone-ACET 5/325MG TAB PO PRN (03:15)
[2025-07-08] MEDS ORDERED: DEXTROSE (50%) 50ML SYRG IV PRN (03:15)
[2025-07-08] MEDS ORDERED: DOCUSATE SOD 100 MG CAP PO PRN (03:15)
[2025-07-08] MEDS ORDERED: ONDANSETRON HCL 4 MG/2 ML VIAL IV PRN (03:15)
--- NOTE | 2025-07-08 03:50 | DVHHP2 ---
History of Present Illness Reason for Visit: Hypoglycemia History of Present Illness The patient is a 40-year-old female with past medical history of pseudomotor cerebri and hypoglycemia who presented to [facility] ED with complaint of low blood sugar. Patient reports she has been feeling lethargic associated with headache, abdominal pain, low back pain, and face pain. Patient states she is currently on glucagon for hypoglycemia. Patient's blood sugar was 71 and was given 15 mg glucose and blood sugar improved to 140 mg/dL. 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 Patient was seen and evaluated in the ED, lab data shows WBC 6.3, hemoglobin 11.2, hematocrit 35.9, platelets 358, sodium 141, potassium 4.5, BUN 22, creatinine 0.60, GFR 116, glucose 91, calcium 9.2, alkaline phos 112, troponin 19, blood pressure 108/98, heart rate 98, temperature 98.7 F, O2 saturation 97% on room air. Urinalysis positive for urinary tract infection. Please see medication orders section in the computer. On my assessment, patient denies chest pain, no headache, dizziness, diaphoresis, currently on oxygen, no diarrhea, nausea, vomiting, fever, no chills. Patient was admitted for further evaluation and medical management. Past Medical History Pseudotumor Cerebri, hypoglycemia Past Surgical History Denies all surgeries Family History Reviewed, noncontributory to the management of this case. Past Social History The patient lives at home, denies smoking, alcohol or illicit drugs abuse. Review of Systems Constitutional: Yes: Weakness; No: Fever, Chills, Sweats, Malaise, Other Eyes: No: Pain, Vision change, Conjunctivae inflammation, Eyelid inflammation, Other, Redness ENT: No: Ear pain, Ear discharge, Nose pain, Nose discharge, Nose congestion, Mouth pain, Mouth swelling, Throat pain, Throat swelling, Other Respiratory: No: Cough, Dry, Shortness of breath, SOB with excertion, Wheezing, Hemoptysis, Pleuritic Pain, Sputum, Wheezing, Other Cardiovascular: No: Chest Pain, Palpitations, Orthopnea, Paroxysmal Noc. Dyspnea, Edema, Lt Headedness, Other Gastrointestinal: No: Nausea, Vomiting, Abdominal Pain, Diarrhea, Constipation, Melena, Hematochezia, Other Genitourinary: No Dysuria, No Frequency, No Incontinence, No Hematuria, No Retention, No Other Musculoskeletal: No: other, neck pain, shoulder pain, arm pain, back pain, hand pain, leg pain, foot pain Skin: No: Rash, Lesions, Jaundice, Bruising, Other Neurological: No: Weakness, Numbness, Incoordination, Change in speech, Confusion, Seizures, Other Allergies: Coded Allergies: Metoclopramide (Verified Allergy, Unknown, 07/08/25) Prochlorperazine (Verified Allergy, Unknown, 07/08/25) Medications Current Medications Medications Dose Ordered Sig/Koby Route Start Time Stop Time Status Last Admin Dose Admin Magnesium Sulfate/ Dextrose 100 ml @ 100 mls/hr Q1H IV 07/08/25 02:30 07/08/25 04:29 Diagnostic Test (Pha) 1 strip ACHS 07/08/25 07:00 Insulin Human Regular ACHS SC 07/08/25 07:00 Dextrose 50 ml UD PRN IV 07/08/25 03:15 Sodium Chloride 10 ml Q8HR IV 07/08/25 06:00 Acetaminophen/ Hydrocodone Bitart 1 tab Q4HP PRN PO 07/08/25 03:15 Ondansetron HCl 4 mg Q4HP PRN IV 07/08/25 03:15 Docusate Sodium 100 mg BIDPRN PRN PO 07/08/25 03:15 Acetaminophen 650 mg Q6HP PRN PO 07/08/25 03:15 Exam Vital Signs Vital Signs Date Time Temp Pulse Resp B/P (MAP) Pulse Ox O2 Delivery O2 Flow Rate FiO2 07/08/25 02:28 98.7 98 14 108/98 (101) 97 98.7 07/08/25 02:17 Room Air* 0 21 General Appearance: Alert, Oriented X3, Cooperative, No acute distress HEENT: Atraumatic, PERRLA, EOMI, Mucous membr. moist/pink Respiratory: Normal air movement Cardiovascular: Regular rate, Normal S1, Normal S2, No murmurs Abdominal: Normal bowel sounds, Soft, No tenderness, No hepatospenomegaly, No masses Extremities: No clubbing, No cyanosis, No edema, Normal pulses, No tenderness/swelling Skin: No rashes, No significant lesion Neuro: Normal speech, Normal tone, Sensation intact, Cranial nerves 3-12 NL, Reflexes 2+, Other (Generalized weakness) Psych/Mental Status: Mental status NL, Mood NL Labs/Xrays Labs Test 07/08/25 01:31 07/08/25 01:12 Range/Units White Blood Count 6.3 4.4-10.8 10^3/uL Red Blood Count 3.88 L 4.0-5.20 10^6/uL Hemoglobin 11.2 L 12.2-16.2 g/dL Hematocrit 35.9 L 36.0-46.0 % Mean Corpuscular Volume 92.7 80.0-100.0 fL Mean Corpuscular Hemoglobin 28.8 28.0-32.0 pg Mean Corpuscular Hemoglobin Concent 31.1 L 32.0-36.0 g/dL Red Cell Distribution Width 16.5 H 11.8-14.3 % Platelet Count 358 140-450 10^3/uL Mean Platelet Volume 7.3 6.9-10.8 fL Neutrophils (%) (Auto) 47.1 37.0-80.0 % Lymphocytes (%) (Auto) 39.9 10.0-50.0 % Monocytes (%) (Auto) 5.7 0.0-12.0 % Eosinophils (%) (Auto) 6.3 0.0-7.0 % Basophils (%) (Auto) 1.0 0.0-2.0 % Neutrophils # (Auto) 3.0 1.6-8.6 10 ^3/uL Lymphocytes # (Auto) 2.5 0.4-5.4 10 ^3/uL Monocytes # (Auto) 0.4 0-1.3 10 ^3/uL Eosinophils # (Auto) 0.4 0-0.8 10 ^3/uL Basophils # (Auto) 0.1 0-0.2 10 ^3/uL Nucleated Red Blood Cells 0.1 % Sodium Level 141 136-145 mmol/L Potassium Level 4.5 3.5-5.1 mmol/L Chloride Level 110 H 98-107 mmol/L Carbon Dioxide Level 20 20-31 mmol/L Anion Gap 11 5-15 Blood Urea Nitrogen 22 9-23 mg/dL Creatinine 0.60 0.550-1.02 mg/dL Glomerular Filtration Rate Calc 116 >90 mL/min BUN/Creatinine Ratio 36.7 H 10.0-20.0 Serum Glucose 91 74-106 mg/dL Calcium Level 9.2 8.7-10.4 mg/dL Magnesium Level 2.1 1.6-2.6 mg/dL Total Bilirubin < 0.2 L 0.2-1.0 mg/dL Aspartate Amino Transferase (AST) 27 13-40 U/L Alanine Aminotransferase (ALT) 25 7-40 U/L Alkaline Phosphatase 117 H 46-116 U/L Troponin I High Sensitivity 19 </=34 ng/L Total Protein 6.5 5.7-8.2 g/dL Albumin 4.2 3.2-4.8 g/dL Plasma/Serum Blood Alcohol < 3.0 <10 mg/dL Urine Color Yellow Yellow Urine Clarity Clear Clear Urine pH 5.5 5.0-9.0 Urine Specific [place] 1.041 H 1.001-1.035 Urine Protein Trace H Negative Urine Ketones Trace Negative Urine Blood Negative Negative /uL Urine Nitrite Negative Negative Urine Bilirubin Negative Negative Urine Urobilinogen Normal Negative mg/dL Urine Leukocyte Esterase 2+ Negative /uL Urine RBC None seen 0 - 4 /hpf Urine Microscopic WBC 1 0-5 /HPF Urine Squamous Epithelial Cells Few <5 /hpf Urine Bacteria None seen None Seen /hpf Urine Mucus Few None Seen Urine Glucose Normal Normal mg/dL Head CT results pending SEPSIS Sepsis Screen Date sepsis recognized/suspect: Jul 08, 2025 Time Sepsis recognized/suspect: 0014 Recent Procedure: No On Antibiotic Therapy: No Respiratory Rate >20: No Heart Rate >90: Yes Temp<36 C (96.8 F) or >38.3 C: No SBP <90 or MAP <65 mmHG: No New Acute Mental Status Change: No Is the patient on CPAP, BIPAP,: No Physician Orders Magnesium Sulfate 1gm/100ml (07/08/25 02:30) Head Without Contrast (07/08/25 02:31) Po Trial (07/08/25 ) Complete Blood Count (07/08/25 04:00) Comprehensive Metabolic Panel (07/08/25 04:00) Glucose Blood (Accu-Chek Comfort Curve T (07/08/25 07:00) Insulin R (Human) (Insulin R) (07/08/25 07:00) Dextrose 50% Syringe (07/08/25 03:15) Allergies (07/08/25 03:07) Code Status (07/08/25 03:07) Sodium Chloride Lock (Saline Lock Ns) (07/08/25 06:00) Oxygen Per Hour (07/08/25 03:07) Hydrocodone-Acet 5/325mg Tab ([place] 5/32 (07/08/25 03:15) Ondansetron Hcl (Zofran) (07/08/25 03:15) Docusate Sodium Capsule (Colace Capsule) (07/08/25 03:15) Complete Blood Count (07/09/25 04:00) Comprehensive Metabolic Panel (07/09/25 04:00) Cardiac Diet-2gna,Lofat,Lochol (07/08/25 Breakfast) Condition: Serious (07/08/25 03:07) Acetaminophen Tablet (Tylenol Tablet) (07/08/25 03:15) Bedrest With Bathroom Privileg (07/08/25 03:07) Maintain Bed Rest (07/08/25 03:07) Sequential Compression Device (07/08/25 ) Admit (07/08/25 03:48) Nitroglycerin Sublingual (Ntrostat Subli (07/08/25 04:00) Morphine Sulfate Injection (07/08/25 04:00) Stat Ekg For Chest Pain (07/08/25 03:48) Notify Md Of Changes From Base (07/08/25 03:48) Picker/Puller For 24 Hours (07/08/25 03:48) Emergency Dysrhythmia Protocol (07/08/25 03:48) Rhythm Strips Once Every Shift (07/08/25 03:48) Oxygen By Nasal Cannula (07/08/25 03:48) Vital Signs Date Time Temp Pulse Resp B/P (MAP) Pulse Ox O2 Delivery O2 Flow Rate FiO2 07/08/25 02:28 98.7 98 14 108/98 (101) 97 98.7 07/08/25 02:17 Room Air* 0 21 07/08/25 00:10 97.5 91 16 90/48 98 97.5 Laboratory Tests Test 07/08/25 01:31 White Blood Count 6.3 10^3/uL (4.4-10.8) Medications Medications Dose Ordered Sig/Koby Route Start Time Stop Time Status Last Admin Dose Admin Sodium Chloride 1,000 ml @ 1,000 mls/hr Q1H ONCE IV 07/08/25 01:15 07/08/25 02:14 DC 07/08/25 01:15 1,000 MLS/HR Assessment/Plan Assessment/Plan Hypoglycemia Urinary tract infection Generalized weakness Plan 1. Admit to telemetry unit 2. Breathing treatment 3. Pain control management 4. IV antibiotic management 5. Management of fluids and electrolytes 6. Consultation for hospitalist 7. Diagnostic test head CT 8. DVT prophylaxis-on SCDs 9. Repeat labs CBC, CMP in a.m. 10. Home medication reviewed and reconciled 11. Continue with current medical management 12. Treatment plan discussed with patient and RN. Patient verbalized understanding. Plan discussed with: Patient, Other (RN) My Orders Orders - RUBEN CROSS DNP Procedure Category Date Status Time Complete Blood Count LAB 07/08/25 Logged 04:00 Comprehensive LAB 07/08/25 Logged Metabolic Panel 04:00 Glucose Blood PHA 07/08/25 In Process (Accu-Chek Comfort 07:00 Insulin R (Human) PHA 07/08/25 In Process (Insulin R) 07:00 Dextrose 50% Syringe PHA 07/08/25 In Process 03:15 Allergies RICKY 07/08/25 In Process 03:07 Code Status CODE 07/08/25 Transmitted 03:07 Sodium Chloride Lock PHA 07/08/25 In Process (Saline Lock Ns) 06:00 Oxygen Per Hour RT 07/08/25 Transmitted 03:07 Hydrocodone-Acet PHA 07/08/25 In Process 5/325mg Tab ([place] 03:15 Ondansetron Hcl PHA 07/08/25 In Process (Zofran) 03:15 Docusate Sodium PHA 07/08/25 In Process Capsule (Colace 03:15 Complete Blood Count LAB 07/09/25 Verified 04:00 Comprehensive LAB 07/09/25 Verified Metabolic Panel 04:00 Cardiac DIET 07/08/25 Transmitted Diet-2gna,Lofat,Lochol Breakfast Condition: Serious RICKY 07/08/25 In Process 03:07 Acetaminophen Tablet PHA 07/08/25 In Process (Tylenol Tablet) 03:15 Bedrest With Bathroom RICKY 07/08/25 In Process Privileg 03:07 Maintain Bed Rest RICKY 07/08/25 In Process 03:07 Sequential RICKY 07/08/25 In Process Compression Device Admit ADMIT 07/08/25 Verified 03:48 Nitroglycerin PHA 07/08/25 Verified Sublingual (Ntrostat 04:00 Morphine Sulfate PHA 07/08/25 Verified Injection 04:00 Stat Ekg For Chest [facility] 07/08/25 Verified Pain 03:48 Notify Md Of Changes [facility] 07/08/25 Verified From Base 03:48 Picker/Puller For [facility] 07/08/25 Verified 24 Hours 03:48 Emergency Dysrhythmia [facility] 07/08/25 Verified Protocol 03:48 Rhythm Strips Once [facility] 07/08/25 Verified Every Shift 03:48 Oxygen By Nasal RT 07/08/25 Verified Cannula 03:48 Problem List: (1) Hypoglycemia (2) Urinary tract infection (3) Generalized weakness Date of Service: Jul 08, 2025 Billing Provider: RUBEN CROSS DNP Common Visit Codes: [id number] INP/OBS CARE (HIGH) RUBEN CROSS DNP Jul 08, 2025 03:50
[2025-07-08] MEDS ORDERED: MORPHINE SULFATE INJ 2 MG/ml SYRG IV PRN (04:00)
[2025-07-08] MEDS ORDERED: NITROGLYCERIN 0.4 MG SL TAB SL PRN (04:00)
--- NOTE | 2025-07-08 04:18 | DVH ---
EXAM: CT HEAD WITHOUT CONTRAST INDICATION: Severe intractable headache. History pseudotumor cerebri TECHNIQUE: CT of the head without intravenous contrast. Coronal and sagittal reformatted images are submitted. Radiation Dose : 1. Head: CT Dose: CTDI volume is 53.73 mGy. Dose-length product is 752.3 mGy*cm The dose indicators for CT are the volume Computed Tomography (CT) Dose Index (CTDIvol) and the Dose Length Product (DLP), and are measured in units of mGy and mGy-cm, respectively. These indicators are not patient dose, but values generated from the CT scanner acquisition factors. The report includes radiation exposure data for exposures received during this examination. All CT scans at this medical facility are performed using dose modulation techniques as appropriate to a performed exam including the following: Automated exposure control was utilized; adjustment of the MA and/or KV according to patient size; and use of iterative reconstruction technique. COMPARISON: No prior imaging is available for comparison at the time of this interpretation. Report from prior CT scan from 03/31/2025. FINDINGS: There is no evidence of acute intracranial hemorrhage, extra-axial collection, mass effect, midline shift, herniation or hydrocephalus. There is a right frontal approach ventricular catheter with its tip terminating in a collapsed frontal horn of the left lateral ventricle. No hydrocephalus. The campos-white differentiation is intact. The visualized paranasal sinuses and mastoid air cells are clear. No depressed calvarial fracture. The surrounding soft tissues are unremarkable. IMPRESSION: 1. No acute intracranial hemorrhage or mass effect. 2. Coapted left lateral ventricle. Ventricular catheter in place. Correlation with shunt function recommended.
[2025-07-08] MEDS: SODIUM CHLOR 0.9% PF (SALINE LOCK) 10ML VIAL/SYR IV SCH (06:00)
[2025-07-08] MEDS: InsuLIN REG 1unit/0.01ml Soln (100units/ml) SC SCH (07:00)
[2025-07-08] MEDS: ACCU-CHEK COMFORT CURVE STRIP VI SCH (09:53)
[2025-07-08 10:51] LABS: Hematocrit 30.5 % (36.0-46.0); Hemoglobin 9.7 g/dL (12.2-16.2); Mean Corpuscular Hemoglobin 29.1 pg (28.0-32.0); Mean Corpuscular Volume 91.3 fL (80.0-100.0); Nucleated Red Blood Cells % 0.0 %
[2025-07-08 11:17] LABS: Alanine Aminotransferase 19 U/L (7-40); Albumin 3.5 g/dL (3.2-4.8); Alkaline Phosphatase 97 U/L (46-116); Anion Gap 8 (5-15); BUN/Creatinine Ratio 28.6 (10.0-20.0); Blood Urea Nitrogen 14 mg/dL (9-23); Carbon Dioxide 25 mmol/L (20-31); Glucose 78 mg/dL (74-106); Potassium 4.2 mmol/L (3.5-5.1); Sodium 142 mmol/L (136-145)
[2025-07-08 11:22] LABS: Bilirubin, Total < 0.2 mg/dL (0.2-1.0); Calcium 8.6 mg/dL (8.7-10.4); Chloride 109 mmol/L (98-107); Total Protein 5.7 g/dL (5.7-8.2)
[2025-07-08 12:02] LABS: Amphetamine Screen, Urine Neg (NEGATIVE); Phencyclidine Screen, Urine Neg (NEGATIVE)
[2025-07-08 12:06] LABS: Barbiturate Scree,Urine Neg (NEGATIVE); Benzodiazephine Screen, Urine Pos (NEGATIVE); Cannabinoid Screen, Urine Neg (NEGATIVE); Cocaine Screen, Urine Neg (NEGATIVE); Opiate Scree,Urine Neg (NEGATIVE)
[2025-07-08 13:40] VITALS: PULSE 85; RESP 14; O2SAT 97
[2025-07-08] MEDS ORDERED: MORPHINE SULFATE 4 MG/ML SYR/VIAL IV PRN ×2 (14:45→15:30)
[2025-07-08] MEDS: diphenhydrAMINE HCL 50 MG/1 ML VL IV ONE (16:37)
[2025-07-08] MEDS: HYDROmorphone HCL 2 MG/ML VL/or syr IV ONE (16:38)
[2025-07-08] MEDS: MORPHINE SULFATE 4 MG/ML SYR/VIAL IV PRN (16:38)
[2025-07-08] MEDS: ACCU-CHEK COMFORT CURVE STRIP VI ONE (17:36)
[2025-07-08] MEDS: DEXTROSE (50%) 50ML SYRG IV ONE (17:36)
[2025-07-08] MEDS: LACTATED RINGER'S 500 ML IV ONE (17:39)
[2025-07-08] MEDS: LACTATED RINGER'S 1,000 ML IV SCH (17:39)
[2025-07-08] MEDS ORDERED: DEXTROSE (50%) 50ML SYRG IV ONE (17:45)
[2025-07-08] MEDS ORDERED: ACCU-CHEK COMFORT CURVE STRIP VI ONE (17:45)
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
[2025-07-08 20:00] VITALS: PULSE 85; PULSE 89; RESP 17; O2SAT 97
[2025-07-08 21:00] VITALS: BP 99/63; PULSE 89; RESP 17; TEMP 97.6; O2SAT 97
[2025-07-09] VITALS (8 sets, daily range): BP systolic 101–142; BP diastolic 66–87; PULSE 58–98; RESP 17–20; TEMP 97.1–98.3; O2SAT 96–100
[2025-07-09] MEDS: diphenhydrAMINE HCL 50 MG/1 ML VL IV ONE ×2 (01:26→06:56)
[2025-07-09 07:24] LABS: Alanine Aminotransferase 24 U/L (7-40); Albumin 3.5 g/dL (3.2-4.8); Alkaline Phosphatase 98 U/L (46-116); Anion Gap 10 (5-15); BUN/Creatinine Ratio 26.9 (10.0-20.0); Blood Urea Nitrogen 14 mg/dL (9-23); Calcium 8.9 mg/dL (8.7-10.4); Carbon Dioxide 26 mmol/L (20-31); Glucose 85 mg/dL (74-106); Potassium 4.5 mmol/L (3.5-5.1); Sodium 144 mmol/L (136-145)
[2025-07-09 07:46] LABS: Bilirubin, Total < 0.2 mg/dL (0.2-1.0); Chloride 108 mmol/L (98-107); Total Protein 5.6 g/dL (5.7-8.2)
[2025-07-09] MEDS: HYDROcodone-ACET 5/325MG TAB PO PRN (08:29)
[2025-07-09 10:03] LABS: Hematocrit 33.8 % (36.0-46.0); Hemoglobin 10.8 g/dL (12.2-16.2); Mean Corpuscular Hemoglobin 29.1 pg (28.0-32.0); Mean Corpuscular Volume 91.3 fL (80.0-100.0); Nucleated Red Blood Cells % 0.3 %
[2025-07-09] MEDS: ALPRAZolam 0.5 MG TAB PO PRN (10:40)
[2025-07-09] MEDS: GABAPENTIN 300 MG CAP PO SCH ×2 (14:33→21:38)
[2025-07-09] MEDS: diphenhydrAMINE HCL 50 MG/1 ML VL IV PRN ×2 (14:34→20:37)
--- NOTE | 2025-07-09 16:32 | DVHPNRES ---
Progress Note Date Seen: Jul 09, 2025 Resident Creating Document: CHRISTIAN DELVALLE RESIDENT Medical Necessity Reason Pt with a Central, PICC or Fol: No Subjective Review of Systems Patient was seen and examined at bedside. Overnight events reviewed. The patient reports having increasing pain in the back, she requests dilaudid, gabapentin 600 mg pain medications. No other new complaints reported Objective vital signs Vital Sign Date Time Temp Pulse Resp B/P (MAP) Pulse Ox O2 Delivery O2 Flow Rate FiO2 07/09/25 14:34 98 18 118/72 07/09/25 13:00 98.1 98 98.1 07/09/25 08:00 Room Air* 0 21 Total Intake and Output 07/08/25 07/08/25 07/09/25 15:00 23:00 07:00 Intake Total 50 ml 500 ml 740 ml Balance 50 ml 500 ml 740 ml medications Current Medications Medications Dose Ordered Sig/Koby Route Start Time Stop Time Status Last Admin Dose Admin Diagnostic Test (Pha) 1 strip ACHS 07/08/25 07:00 07/09/25 11:32 1 STRIP Insulin Human Regular ACHS SC 07/08/25 07:00 Dextrose 50 ml UD PRN IV 07/08/25 03:15 Sodium Chloride 10 ml Q8HR IV 07/08/25 06:00 07/09/25 14:15 10 ML Ondansetron HCl 4 mg Q4HP PRN IV 07/08/25 03:15 Docusate Sodium 100 mg BIDPRN PRN PO 07/08/25 03:15 Acetaminophen 650 mg Q6HP PRN PO 07/08/25 03:15 Nitroglycerin 0.4 mg Q5MINP PRN SL 07/08/25 04:00 Ceftriaxone Sodium 50 ml @ 100 mls/hr DAILY@09 IV 07/08/25 09:00 07/09/25 08:30 100 MLS/HR Morphine Sulfate 1 mg Q4HP PRN IV 07/08/25 15:00 07/09/25 14:34 1 MG Acetaminophen/ Hydrocodone Bitart 1 tab Q4HPRN PRN PO 07/08/25 15:00 07/09/25 12:38 1 TAB Morphine Sulfate 2 mg Q30M PRN IV 07/08/25 15:30 Lactated Ringer's 1,000 ml @ 100 mls/hr Q10H IV 07/08/25 17:30 07/09/25 13:30 100 MLS/HR Gabapentin 300 mg TID PO 07/09/25 14:00 07/09/25 14:33 300 MG Tramadol HCl 50 mg Q6HP PO 07/09/25 12:00 07/09/25 11:32 50 MG Alprazolam 1 mg BID PRN PO 07/09/25 09:45 07/09/25 10:40 1 MG Patient Own Medication 1 QWEEKLY PO 07/09/25 09:45 Diphenhydramine HCl 25 mg Q6HP PRN IV 07/09/25 14:15 07/09/25 14:34 25 MG Examination Pt is lying on bed General Appearance: Alert, Oriented X3, Cooperative, Mild distress HEENT: Atraumatic, Mucous membranes moist/pink Respiratory: Clear to auscultation, Normal air movement, No added sounds Cardiovascular: Regular rate, Normal S1, Normal S2, No murmurs Abdominal/ : Laparotomy scar present, Active bowel sounds, Soft, no distention, no tenderness Extremities: No edema, Normal pulses, No tenderness/swelling Skin: Port-A-Cath in place right chest wall Neuro: Normal speech, sensorimotor deficits none Psych/Mental Status: Mental status NL, Mood NL Nurse was there as design printer balloon during examination laboratory and microbiology Laboratory Tests 07/09/25 09:36 07/09/25 05:02 Test 07/09/25 05:02 Range/Units Serum Glucose 85 74-106 mg/dL Labs and/or images reviewed: Labs reviewed by me, Image(s) reviewed by me Problem List/Assessment/Plan Problem List/Assessment/Plan Acute complicated UTI -IV fluids LR -IV ceftriaxone -[place] -Benadryl for itching with analgesics Recurrent hypoglycemia -possibly due to acute infection -follow up outpatient with hvac/r instructor Dr. Escalante Port-A-Cath at place, confirmed by x-ray, multiple surgeries -IV ceftriaxone GI prophylaxis: Pantoprazole DVT prophylaxis: SCDs Diet: Regular Goals of care discussed with the patient for more than 27 minutes: Full code status Case discussed with Dr. Robels, patient and RN Plan discussed with: Patient, Other (RN) My Orders My Orders Orders - CHRISTIAN DELVALLE Procedure Category Date Status Time Urine Bacterial STACEY 07/09/25 Logged Culture 14:19 Blood Culture STACEY 07/09/25 In Process 10:33 Education - Smoking RICKY 07/08/25 In Process Cessation 20:50 * Smoking Cessation CONS 07/08/25 Transmitted Consult 20:50 Hepatitis B Surface LAB 07/09/25 In Process Antigen 04:00 Hepatitis C Antibody LAB 07/09/25 In Process 04:00 Gabapentin Capsule PHA 07/09/25 In Process (Neurontin Capsule) 14:00 Tramadol Hcl (Ultram) PHA 07/09/25 In Process 12:00 Alprazolam Tablet PHA 07/09/25 In Process (Xanax Tablet) 09:45 Patients Own PHA 07/09/25 In Process Medication 09:45 Diphenhydramine PHA 07/09/25 In Process Injection (Benadryl 14:15 Visit Coding STANDARD RES Billing Provider: CHIDI ROBLES MD Date of Service if different f: Jul 09, 2025 Common Visit Codes: [id number] INP/OBS CARE(HIGH) CHRISTIAN DELVALLE RESIDENT Jul 09, 2025 16:32 CHIDI ROBLES MD Jul 09, 2025 18:44
[2025-07-09] MEDS: MORPHINE SULFATE 4 MG/ML SYR/VIAL IV PRN (20:38)
[2025-07-10] VITALS (8 sets, daily range): BP systolic 100–128; BP diastolic 54–71; PULSE 56–97; RESP 16–20; TEMP 97.6–98.7; O2SAT 95–100
[2025-07-10 07:40] LABS: Hematocrit 34.0 % (36.0-46.0); Hemoglobin 10.9 g/dL (12.2-16.2); Mean Corpuscular Hemoglobin 29.2 pg (28.0-32.0); Mean Corpuscular Volume 91.2 fL (80.0-100.0); Nucleated Red Blood Cells % 0.1 %
[2025-07-10 07:51] LABS: Alanine Aminotransferase 27 U/L (7-40); Albumin 4.2 g/dL (3.2-4.8); Alkaline Phosphatase 111 U/L (46-116); Anion Gap 11 (5-15); BUN/Creatinine Ratio 21.5 (10.0-20.0); Blood Urea Nitrogen 14 mg/dL (9-23); Calcium 9.2 mg/dL (8.7-10.4); Carbon Dioxide 22 mmol/L (20-31); Chloride 107 mmol/L (98-107); Sodium 140 mmol/L (136-145); Total Protein 6.4 g/dL (5.7-8.2)
[2025-07-10 07:54] LABS: Bilirubin, Total < 0.2 mg/dL (0.2-1.0); Glucose 115 mg/dL (74-106); Potassium 5.4 mmol/L (3.5-5.1)
[2025-07-10] MEDS ORDERED: SODIUM BICARB 8.4% 50Meq/50ml SYR INJ IV ONE (09:15)
[2025-07-10] MEDS ORDERED: DEXTROSE (50%) 50ML SYRG IV ONE (09:15)
[2025-07-10] MEDS ORDERED: FUROSEMIDE 20 MG/2 ML VIAL IV ONE (09:15)
[2025-07-10] MEDS ORDERED: InsuLIN REG 1unit/0.01ml Soln (100units/ml) IV ONE (09:15)
[2025-07-10] MEDS ORDERED: ALBUTEROL SULF 2.5 MG/0.5ML(0.5%) NEB SOLN NEB ONE (09:15)
[2025-07-10 10:31] LABS: Hepatitis B Surface Antigen Negative (Negative)
[2025-07-10] MEDS: FUROSEMIDE 20 MG/2 ML VIAL IV ONE (10:34)
[2025-07-10 10:45] LABS: Hepatitis C Antibody Negative (Negative)
[2025-07-10] MEDS ORDERED: SODIUM ZIRCONIUM CYCL 10 GM PAK PO SCH (14:00)
[2025-07-10] MEDS: ALBUTEROL SULF 2.5 MG/0.5ML(0.5%) NEB SOLN ONE (14:53)
--- NOTE | 2025-07-10 17:48 | DVHPNRES ---
Progress Note Date Seen: Jul 10, 2025 Resident Creating Document: CHRISTIAN DELVALLE Medical Necessity Reason Pt with a Central, PICC or Fol: No Subjective Review of Systems The patient was seen and examined at bedside. Overnight events were reviewed. The patient reports increasing pain. Other new complaints reported Objective vital signs Vital Sign Date Time Temp Pulse Resp B/P (MAP) Pulse Ox O2 Delivery O2 Flow Rate FiO2 07/10/25 17:15 85 20 102/63 07/10/25 13:00 98.3 100 98.3 07/10/25 07:55 Room Air* 0 21 Total Intake and Output 07/09/25 07/09/25 07/10/25 15:00 23:00 07:00 Intake Total 1040 ml 2000 ml Balance 1040 ml 2000 ml medications Current Medications Medications Dose Ordered Sig/Koby Route Start Time Stop Time Status Last Admin Dose Admin Diagnostic Test (Pha) 1 strip ACHS 07/08/25 07:00 07/10/25 16:49 1 STRIP Insulin Human Regular ACHS SC 07/08/25 07:00 Dextrose 50 ml UD PRN IV 07/08/25 03:15 Sodium Chloride 10 ml Q8HR IV 07/08/25 06:00 07/10/25 14:45 10 ML Ondansetron HCl 4 mg Q4HP PRN IV 07/08/25 03:15 Docusate Sodium 100 mg BIDPRN PRN PO 07/08/25 03:15 Acetaminophen 650 mg Q6HP PRN PO 07/08/25 03:15 Nitroglycerin 0.4 mg Q5MINP PRN SL 07/08/25 04:00 Ceftriaxone Sodium 50 ml @ 100 mls/hr DAILY@09 IV 07/08/25 09:00 07/10/25 08:13 100 MLS/HR Acetaminophen/ Hydrocodone Bitart 1 tab Q4HPRN PRN PO 07/08/25 15:00 07/10/25 14:51 1 TAB Morphine Sulfate 2 mg Q30M PRN IV 07/08/25 15:30 Lactated Ringer's 1,000 ml @ 100 mls/hr Q10H IV 07/08/25 17:30 07/09/25 23:43 100 MLS/HR Tramadol HCl 50 mg Q6HP PO 07/09/25 12:00 07/10/25 11:45 50 MG Alprazolam 1 mg BID PRN PO 07/09/25 09:45 07/10/25 14:45 1 MG Patient Own Medication 1 QWEEKLY PO 07/09/25 09:45 Diphenhydramine HCl 25 mg Q4HP PRN IV 07/09/25 20:15 07/10/25 17:14 25 MG Gabapentin 600 mg TID PO 07/09/25 22:00 07/10/25 14:45 600 MG Morphine Sulfate 2 mg Q4HP PRN IV 07/09/25 20:15 07/10/25 17:15 2 MG Examination Pt is lying on bed General Appearance: Alert, Oriented X3, Cooperative, Mild distress HEENT: Atraumatic, Mucous membranes moist/pink Respiratory: Clear to auscultation, Normal air movement, No added sounds Cardiovascular: Regular rate, Normal S1, Normal S2, No murmurs Abdominal/ : Laparotomy scar present, Active bowel sounds, Soft, no distention, no tenderness Extremities: No edema, Normal pulses, No tenderness/swelling Skin: Port-A-Cath in place right chest wall Neuro: Normal speech, sensorimotor deficits none Psych/Mental Status: Mental status NL, Mood NL Nurse was there as window glass cutter off during examination laboratory and microbiology Laboratory Tests 07/10/25 06:54 07/10/25 06:36 Test 07/10/25 06:36 Range/Units Serum Glucose 115 H 74-106 mg/dL Microbiology Date/Time Source Procedure Growth Status 07/09/25 14:42 Blood Blood Culture - Preliminary NO GROWTH AFTER 24 HOURS OF INCUBATION. Resulted Labs and/or images reviewed: Labs reviewed by me, Image(s) reviewed by me (RN) Problem List/Assessment/Plan Problem List/Assessment/Plan Acute complicated UTI -IV fluids LR -IV ceftriaxone -[place] -Benadryl for itching with analgesics - Morphine and Tramadol discontinued. Recurrent hypoglycemia -possibly due to acute infection -follow up outpatient with airplane tester Dr. Escalante Anxiety - Xanax changed to T.I. D Port-A-Cath at place, confirmed by x-ray, multiple surgeries -IV ceftriaxone GI prophylaxis: Pantoprazole DVT prophylaxis: SCDs Diet: Regular Goals of care discussed with Dr. Moran, the patient for more than 27 minutes: Full code status Plan discussed with: Patient, Other (RN) Visit Coding STANDARD RES Billing Provider: JULIAN MORAN MD Date of Service if different f: Jul 10, 2025 Common Visit Codes: [id number] INP/OBS CARE(HIGH) CHRISTIAN DELVALLE RESIDENT Jul 10, 2025 17:48
[2025-07-10 19:51] LABS: Hematocrit 37.3 % (36.0-46.0); Hemoglobin 12.1 g/dL (12.2-16.2); Mean Corpuscular Hemoglobin 29.5 pg (28.0-32.0); Mean Corpuscular Volume 91.0 fL (80.0-100.0); Nucleated Red Blood Cells % 0.1 %
[2025-07-10 20:01] LABS: Alanine Aminotransferase 25 U/L (7-40); Albumin 4.5 g/dL (3.2-4.8); Alkaline Phosphatase 113 U/L (46-116); Anion Gap 13 (5-15); BUN/Creatinine Ratio 13.0 (10.0-20.0); Blood Urea Nitrogen 10 mg/dL (9-23); Calcium 9.4 mg/dL (8.7-10.4); Carbon Dioxide 26 mmol/L (20-31); Chloride 104 mmol/L (98-107); Potassium 4.4 mmol/L (3.5-5.1); Sodium 143 mmol/L (136-145); Total Protein 7.0 g/dL (5.7-8.2)
[2025-07-10 20:04] LABS: Bilirubin, Total < 0.2 mg/dL (0.2-1.0); Glucose 144 mg/dL (74-106)
[2025-07-10 23:07] LABS: Chlamydia Trachomatis, NAA Negative (Negative); Neisseria gonorrhoeae, NAA Negative (Negative)
[2025-07-11 00:46] VITALS: BP 107/68; PULSE 83; RESP 17; TEMP 98.2; O2SAT 100
[2025-07-11 04:46] VITALS: BP 117/72; PULSE 76; RESP 18; TEMP 98.9; O2SAT 100
[2025-07-11 06:09] LABS: Chloride 106 mmol/L (98-107); Potassium 4.5 mmol/L (3.5-5.1); Sodium 142 mmol/L (136-145)
[2025-07-11 06:10] LABS: Anion Gap 9 (5-15); Carbon Dioxide 27 mmol/L (20-31)
[2025-07-11 06:11] LABS: Calcium 8.9 mg/dL (8.7-10.4)
[2025-07-11 06:15] LABS: Glucose 84 mg/dL (74-106)
[2025-07-11 06:16] LABS: BUN/Creatinine Ratio 25.0 (10.0-20.0); Blood Urea Nitrogen 12 mg/dL (9-23)
[2025-07-11 08:12] VITALS: PULSE 100
[2025-07-11 09:00] VITALS: BP 110/74; PULSE 103; RESP 17; TEMP 97.8; O2SAT 99
[2025-07-11] MEDS ORDERED: HYDR-4798 PO (11:13)
[2025-07-11] MEDS ORDERED: NITR-87 PO (11:16)
[2025-07-11 11:39] VITALS: BP 106/69; TEMP 36.6
[2025-07-11 13:00] VITALS: BP 118/81; PULSE 98; RESP 18; TEMP 97.8; O2SAT 96
[2025-07-11] MEDS ORDERED: ALPR0.25 PO (13:56)
== END 2025-07-11 13:33 | disposition home or self-care (01) | DRG 690 ==
LOC: EDBD 23:50 → ER 23:50 → EDUNIT# 07-08 03:48 → OVERFLOW 07-08 03:48 → TELE-WESTW 07-08 18:39
PROVIDERS: ADMIT Internal Medicine Geriatric Medicine; ATTEND Internal Medicine Geriatric Medicine
DX: N39.0 Urinary tract infection, site not specified (principal); E16.2 Hypoglycemia, unspecified; G89.29 Other chronic pain; Z88.8 Allergy status to other drugs, medicaments and biological substances; Z87.891 Personal history of nicotine dependence; E86.0 Dehydration
CPT/HCPCS: 36415; 70450; 80048; 80053; 80307; 80320; 81001; 82962; 83690; 83735; 84484; 84702; 85025; 86803; 87040; 87340; G0378; J1885; J2405